=== PATIENT | male | born 1955 | race Caucasian/White ===

== ENCOUNTER 2016-08-07 21:45 | Inpatient (IN) | payer OTHER ==
[~2016-08-07] VITALS: Ht 175.3 cm; Wt 139.7 kg
[~2016-08-07 21:45] MED LIST: ARIP5TAB4 PO; ASPI-991 PO; DOXY100C2 PO; FERR1TAB44 PO; FURO20TA4 PO; LISI2.5T2 PO; MULT1CAP34 PO; PANT40TA2 PO; ROSU5TAB PO; Silver Sulfadiazine TP
[2016-08-07] MEDS ORDERED: METOPROLOL TARTRATE INJ 5 MG/5 ML AMPUL ONE (22:27)
[2016-08-07] MEDS ORDERED: HYDROCODONE/APAP 5/325MG 1 EACH TABLET ONE ×2 (22:27→22:44)
[2016-08-07] MEDS ORDERED: NITROGLYCERIN 0.4 MG/TAB BOTTLE ONE (22:28)
[2016-08-07] MEDS ORDERED: NITROGLYCERIN PACKET 1 GM PACKET ONE (22:28)
[2016-08-07] MEDS ORDERED: NITROGLYCERIN 0.4 MG/TAB BOTTLE SL ONE (22:30)
[2016-08-07] MEDS ORDERED: NITROGLYCERIN PACKET 1 GM PACKET TD ONE (22:30)
[2016-08-07] MEDS ORDERED: METOPROLOL TARTRATE INJ 5 MG/5 ML AMPUL IVP ONE (22:30)
[2016-08-07] MEDS ORDERED: HYDROCODONE/APAP 5/325MG 1 EACH TABLET PO ONE (22:30)
[2016-08-07 23:09] LABS: BASOPHILS # (AUTO) 0.1 /CMM (0.0-0.2); BASOPHILS % (AUTO) 0.7 % (0.0-2.0); DIFF TOTAL % 100 %; EOSINOPHILS # (AUTO) 0.2 /CMM (0.0-0.7); EOSINOPHILS % (AUTO) 2.5 % (0.0-6.0); HEMATOCRIT 34 % (39-51); LYMPHOCYTES # (AUTO) 2.4 /CMM (0.8-4.8); MEAN CORPUSCULAR HEMOGLOBIN 28 PG (26.0-33.0); MEAN CORPUSCULAR HGB CONC 33 g/dl (31.0-36.0); MEAN CORPUSCULAR VOLUME 85 fL (80-96); MONOCYTES # (AUTO) 0.8 /CMM (0.1-1.30); MONOCYTES % (AUTO) 9.2 % (2.0-12.0); NEUTROPHILS # (AUTO) 5.1 /CMM (1.8-8.9); NEUTROPHILS % (AUTO) 59.6 % (43.0-81.0); PLATELET COUNT (AUTO) 363 /CMM (150-450); RED BLOOD CELL COUNT(AUTO) 3.97 MIL/uL (4.5-6.0); WHITE BLOOD COUNT (AUTO) 8.6 K/uL (4.3-11.0)
[2016-08-07 23:10] LABS: CALCIUM, SERUM 8.7 mg/dL (8.5-10.1); POTASSIUM 3.4 mmol/L (3.5-5.1)
[2016-08-07 23:15] LABS: TROPONIN I 0.02 ng/mL (0.00-0.056)
[2016-08-07 23:22] LABS: ALBUMIN 3.1 g/dL (3.4-5.0); BILIRUBIN,TOTAL 0.2 mg/dL (0.2-1.0); TOTAL PROTEIN, SERUM 6.9 g/dL (6.4-8.2)
[2016-08-07 23:23] LABS: INDIRECT BILIRUBIN 0.2 mg/dL (0.0-1.1)
[2016-08-07 23:45] LABS: INR 0.97 (0.87-1.13); PROTHROMBIN TIME 10.5 SECS (9.5-12.7)
[2016-08-08] MEDS ORDERED: VANCOMYCIN 1 GM in IV D5W 250 ML IV ONE ×2
[2016-08-08] MEDS ORDERED: IV D5W 250 ML IV ONE (00:40)
[2016-08-08] MEDS ORDERED: IV SET PRIMARY PUMP SET 1 EA INFUS.SET MC ONE ×2 (00:40→05:10)
[2016-08-08] MEDS ORDERED: VANCOMYCIN 1 GM VIAL ONE (00:40)
[2016-08-08] MEDS ORDERED: Z GUARD REMEDY 2 OZ OINT TP PRN (01:00)
[2016-08-08] MEDS ORDERED: MAG HYDROX/AL HYDROX/SIMETH 30 ML UDC PO PRN (01:00)
[2016-08-08] MEDS ORDERED: ONDANSETRON HCL/PF 4 MG/2 ML VIAL IVP PRN (01:00)
[2016-08-08] MEDS ORDERED: MAGNESIUM HYDROXIDE 30 ML UDC PO PRN (01:00)
[2016-08-08] MEDS ORDERED: Medication Not On Formulary EA (Doxycycline Hyclate 100 MG) PO SCH (01:00)
[2016-08-08] MEDS ORDERED: ACETAMINOPHEN 325 MG TABLET PO PRN (01:00)
[2016-08-08 01:30] VITALS: BP 150/103
[2016-08-08 02:00] VITALS: BP 148/83
[2016-08-08] MEDS ORDERED: ISOS10TA8 PO (02:08)
[2016-08-08] MEDS ORDERED: METO25TA6 PO (02:08)
[2016-08-08] MEDS ORDERED: PIPERACILLIN /TAZOBACTAM 3.375 G VIAL IV ONE (03:28)
[2016-08-08] MEDS ORDERED: IV D5W 50 ML IV ONE (03:29)
[2016-08-08] MEDS ORDERED: SECONDARY IV SET 1 EA INFUS.SET MC ONE ×3 (04:21→10:05)
[2016-08-08] MEDS ORDERED: HYDROCODONE/APAP 5/325MG 1 EACH TABLET ONE (04:29)
[2016-08-08] MEDS: HYDROCODONE/APAP 5/325MG 1 EACH TABLET PO PRN ×4 (04:33→21:13)
[2016-08-08] MEDS: PIPERACILLIN /TAZOBACTAM 3.375 G in IV D5W 50 ML IV SCH ×3 (05:22→18:34)
[2016-08-08 08:00] VITALS: BP 156/96
[2016-08-08] MEDS: FERROUS SULFATE (325 MG) 325 MG/TAB TABLET PO SCH (08:32)
[2016-08-08] MEDS: ASPIRIN EC 81 MG TABLET.DR PO SCH (08:32)
[2016-08-08] MEDS: POTASSIUM CHLORIDE 20 MEQ TAB.PRT.SR PO SCH ×3 (08:32→10:07)
[2016-08-08] MEDS: FUROSEMIDE 20 MG TABLET PO SCH (08:32)
[2016-08-08] MEDS: PANTOPRAZOLE 40 MG TABLET.DR PO SCH (08:32)
[2016-08-08] MEDS ORDERED: FEE PK DOSING 1 MIN EA MC ONE (08:42)
[2016-08-08] MEDS ORDERED: LISINOPRIL PO SCH (09:00)
[2016-08-08] MEDS ORDERED: SILVER SULFADIAZINE TP SCH (09:00)
[2016-08-08] MEDS: MULTIVITAMINS,THERAPEUTIC 1 UDTAB TABLET PO SCH (09:29)
[2016-08-08] MEDS: VANCOMYCIN 1.25 GM in IV D5W 500 ML IV SCH ×2 (10:07→22:59)
[2016-08-08 13:51] LABS: IRON, SERUM 136 ug/dl (50-175); PERCENT SATURATION 38 % (14-33); TOTAL IRON BINDING CAPACITY 362 ug/dl (250-450)
[2016-08-08 16:00] VITALS: BP 141/88
[2016-08-08 20:00] VITALS: BP 152/83
[2016-08-08] MEDS: ARIPIPRAZOLE 5 MG TABLET PO SCH (21:13)
[2016-08-08] MEDS ORDERED: ROSUVASTATIN CALCIUM PO SCH (22:00)
[2016-08-08] MEDS ORDERED: ZOLPIDEM TARTRATE 5 MG TABLET PO PRN (22:00)
[2016-08-09] MEDS: PIPERACILLIN /TAZOBACTAM 3.375 G in IV D5W 50 ML IV SCH ×4 (00:58→17:29)
[2016-08-09] MEDS: HYDROCODONE/APAP 5/325MG 1 EACH TABLET PO PRN ×6 (01:13→22:44)
[2016-08-09] MEDS ORDERED: NITROGLYCERIN PACKET 1 GM PACKET ONE (01:35)
[2016-08-09] MEDS ORDERED: NITROGLYCERIN PATCH 0.2 MG/HR PATCH.TD24 TD ONE (01:48)
[2016-08-09] MEDS ORDERED: NITROGLYCERIN 0.3 MG/HR TD SCH (02:00)
[2016-08-09] MEDS: FUROSEMIDE 20 MG TABLET PO SCH (06:23)
[2016-08-09 07:05] LABS: CALCIUM, SERUM 8.8 mg/dL (8.5-10.1); PHOSPHORUS 3.5 mg/dL (2.5-4.9); POTASSIUM 4.1 mmol/L (3.5-5.1)
[2016-08-09 07:19] LABS: BASOPHILS # (AUTO) 0.1 /CMM (0.0-0.2); BASOPHILS % (AUTO) 0.6 % (0.0-2.0); DIFF TOTAL % 100 %; EOSINOPHILS # (AUTO) 0.3 /CMM (0.0-0.7); EOSINOPHILS % (AUTO) 3.7 % (0.0-6.0); HEMATOCRIT 38 % (39-51); HEMOGLOBIN 12.4 g/dL (13.5-17.5); LYMPHOCYTES # (AUTO) 0.9 /CMM (0.8-4.8); LYMPHOCYTES % (AUTO) 10.1 % (20.0-44.0); MEAN CORPUSCULAR HEMOGLOBIN 28 PG (26.0-33.0); MEAN CORPUSCULAR HGB CONC 33 g/dl (31.0-36.0); MEAN CORPUSCULAR VOLUME 85 fL (80-96); MONOCYTES # (AUTO) 0.6 /CMM (0.1-1.30); MONOCYTES % (AUTO) 6.9 % (2.0-12.0); NEUTROPHILS % (AUTO) 78.7 % (43.0-81.0); PLATELET COUNT (AUTO) 274 /CMM (150-450); WHITE BLOOD COUNT (AUTO) 8.9 K/uL (4.3-11.0)
[2016-08-09 08:00] VITALS: BP 149/91
[2016-08-09] MEDS: FERROUS SULFATE (325 MG) 325 MG/TAB TABLET PO SCH (09:05)
[2016-08-09] MEDS: MULTIVITAMINS,THERAPEUTIC 1 UDTAB TABLET PO SCH (09:05)
[2016-08-09] MEDS: PANTOPRAZOLE 40 MG TABLET.DR PO SCH (09:05)
[2016-08-09] MEDS: ASPIRIN EC 81 MG TABLET.DR PO SCH (09:05)
[2016-08-09] MEDS: VANCOMYCIN 1.25 GM in IV D5W 500 ML IV SCH ×2 (10:43→22:27)
[2016-08-09 12:16] LABS: EOSINOPHILS % (MANUAL) 1 % (0-4); LYMPHOCYTES % (MANUAL) 18 % (16-48); PLATELET ESTIMATE ADEQUATE
[2016-08-09 12:17] LABS: ANISOCYTOSIS 1+; HYPOCHROMASIA 1+
[2016-08-09] MEDS: SILVER SULFADIAZINE CREAM 400 GM JAR TP SCH (12:36)
[2016-08-09 16:00] VITALS: BP 156/82
[2016-08-09 20:07] VITALS: BP 155/89
[2016-08-09 22:00] VITALS: BP 155/89
[2016-08-09] MEDS: ARIPIPRAZOLE 5 MG TABLET PO SCH (22:26)
[2016-08-10] MEDS: HYDROCODONE/APAP 5/325MG 1 EACH TABLET PO PRN ×2 (05:58→15:59)
[2016-08-10] MEDS: PIPERACILLIN /TAZOBACTAM 3.375 G in IV D5W 50 ML IV SCH ×4 (05:59→13:17)
[2016-08-10 07:07] LABS: CALCIUM, SERUM 8.5 mg/dL (8.5-10.1); CREATININE 1.1 mg/dL (0.6-1.3); POTASSIUM 3.7 mmol/L (3.5-5.1)
[2016-08-10 08:00] VITALS: BP 157/90
[2016-08-10] MEDS: FERROUS SULFATE (325 MG) 325 MG/TAB TABLET PO SCH (08:49)
[2016-08-10] MEDS: FUROSEMIDE 20 MG TABLET PO SCH (08:49)
[2016-08-10] MEDS: ASPIRIN EC 81 MG TABLET.DR PO SCH (08:49)
[2016-08-10] MEDS: MULTIVITAMINS,THERAPEUTIC 1 UDTAB TABLET PO SCH (08:49)
[2016-08-10] MEDS: PANTOPRAZOLE 40 MG TABLET.DR PO SCH (08:49)
[2016-08-10] MEDS ORDERED: NITROGLYCERIN PATCH 0.2 MG/HR PATCH.TD24 TD SCH (09:00)
[2016-08-10] MEDS ORDERED: NITROGLYCERIN 0.1 MG/HR PATCH.TD24 TD SCH (09:00)
[2016-08-10] MEDS: SILVER SULFADIAZINE CREAM 400 GM JAR TP SCH (10:02)
[2016-08-10] MEDS: VANCOMYCIN 1.25 GM in IV D5W 500 ML IV SCH (10:57)
[2016-08-10] MEDS ORDERED: IV NS 0.9% 250 ML IV ONE (11:07)
[2016-08-10] MEDS ORDERED: METOPROLOL TARTRATE 25 MG TABLET PO SCH (11:30)
[2016-08-10] MEDS ORDERED: LEVO500T15 PO (15:50)
[2016-08-10 16:00] VITALS: BP 158/89
[2016-08-10] MEDS ORDERED: LEVOFLOXACIN (500MG) 500 MG TABLET PO SCH (16:00)
[2016-08-10] MEDS ORDERED: VANCOMYCIN 1 GM in IV D5W 250 ML IV SCH (22:00)
== END 2016-08-10 19:45 | disposition home or self-care (01) | DRG 383 ==
LOC: ER 21:50 → TELE 08-08 00:14 → MED 08-08 22:05
PROVIDERS: ADMIT Family Medicine; ATTEND Family Medicine
DX: L03.115 Cellulitis of right lower limb (principal); E43 Unspecified severe protein-calorie malnutrition; D68.59 Other primary thrombophilia; Z68.42 Body mass index [BMI] 45.0-49.9, adult; I50.9 Heart failure, unspecified; I11.0 Hypertensive heart disease with heart failure; E66.01 Morbid (severe) obesity due to excess calories; I25.10 Atherosclerotic heart disease of native coronary artery without angina pectoris; I83.019 Varicose veins of right lower extremity with ulcer of unspecified site; K21.9 Gastro-esophageal reflux disease without esophagitis; E78.5 Hyperlipidemia, unspecified; F31.9 Bipolar disorder, unspecified; I25.2 Old myocardial infarction; N40.0 Benign prostatic hyperplasia without lower urinary tract symptoms; E87.6 Hypokalemia; Z59.0 Homelessness; Z85.72 Personal history of non-Hodgkin lymphomas; I89.0 Lymphedema, not elsewhere classified
CPT/HCPCS: 36415; 71010-TC; 73590-TC; 80048-TC; 80061-TC; 80076-TC; 80202-TC; 83540-TC; 83735-TC; 83880; 84100-TC; 84484-TC; 85025-TC; 85378-TC; 85730-TC; 87040-TC; 87070-TC; 87081-TC; 87186-TC; 94799-TC; A4606; A6253; A6403; J2543; J3370; J3490; J7050; J7060; Z7610

== ENCOUNTER 2017-01-10 21:27 | Inpatient (IN) | payer OTHER ==
[~2017-01-10] VITALS: Ht 175.3 cm; Wt 130.2 kg
[~2017-01-10 21:27] MED LIST changes: -DOXY100C2 PO; +ISOS10TA8 PO; +LEVO500T15 PO; +METO25TA6 PO
--- NOTE | 2017-01-10 21:40 | NUR ---
PT BIB SELF C/O DIZZINESS AND CP, SEVERE AND SHARP IN CHARACTER. "I THOUGHT I WAS HAVING A HEART ATTACK". RESP EVEN UNLABORED. SKIN WARM DIAPHORETIC. AMBULATORY WITH STEADY GAIT, HOWEVER PT REPORTS HE HAS HAD DIZZINESS WHICH AFFECTED HIS WALKING ABILITY EARLIER. "LUGGING THIS SUITCASE IS HEAVY" HE STATES; NOTED WITH A LARGE WHEELED SUITCASE ON BELONGINGS AT BEDSIDE. SAPPHIRE LOWER LEGS ARE WRAPPED AND WEEPING. PT REPORTS 1 DAY LEFT OF 10 DAY COURSE OF LEVAQUIN. IN ER BED 12 ON MONITOR.
[2017-01-10] MEDS ORDERED: IV NS 0.9% 1,000 ML BAG IV ONE ×3 (22:00→23:30)
[2017-01-10] MEDS ORDERED: IV NS 0.9% 2,000 ML ONE (22:11)
[2017-01-10] MEDS ORDERED: IV SET PRIMARY 1 EA INFUS.SET MC ONE ×3 (22:11→23:18)
[2017-01-10 22:17] LABS: BASOPHILS % (AUTO) 0.3 % (0.0-2.0); EOSINOPHILS # (AUTO) 0.1 /CMM (0.0-0.7); EOSINOPHILS % (AUTO) 1.5 % (0.0-6.0); HEMATOCRIT 32 % (39-51); HEMOGLOBIN 10.7 g/dL (13.5-17.5); LYMPHOCYTES # (AUTO) 1.5 /CMM (0.8-4.8); LYMPHOCYTES % (AUTO) 16.7 % (20.0-44.0); MEAN CORPUSCULAR HEMOGLOBIN 30 PG (26.0-33.0); MEAN CORPUSCULAR HGB CONC 34 g/dl (31.0-36.0); MEAN CORPUSCULAR VOLUME 91 fL (80-96); MONOCYTES # (AUTO) 0.7 /CMM (0.1-1.30); MONOCYTES % (AUTO) 7.9 % (2.0-12.0); NEUTROPHILS # (AUTO) 6.7 /CMM (1.8-8.9); NEUTROPHILS % (AUTO) 73.6 % (43.0-81.0); PLATELET COUNT (AUTO) 388 /CMM (150-450); RDW COEFFICIENT OF VARIATION 14.6 (11.5-15.0); RED BLOOD CELL COUNT(AUTO) 3.52 MIL/uL (4.5-6.0); WHITE BLOOD COUNT (AUTO) 9.1 K/uL (4.3-11.0)
--- NOTE | 2017-01-10 22:25 | NUR ---
2 LARGE BORE IVS ESTABLISHED
[2017-01-10 22:26] LABS: CALCIUM, SERUM 8.5 mg/dL (8.5-10.1); CARBON DIOXIDE 25 mmol/L (21-32); CHLORIDE 103 mmol/L (98-107); CREATININE 2.7 mg/dL (0.6-1.3); GLUCOSE 107 mg/dL (74-106); POTASSIUM 5.2 mmol/L (3.5-5.1); SODIUM SERUM 136 mmol/L (136-145); UREA NITROGEN, BLOOD 52 mg/dL (7-18)
[2017-01-10 22:32] LABS: ALANINE AMINOTRANSFERASE 26 U/L (12-78); ALBUMIN 2.9 g/dL (3.4-5.0); ALKALINE PHOSPHATASE 84 U/L (46-116); ASPARTATE AMINOTRANSFERASE 17 U/L (15-37); BILIRUBIN,DIRECT 0.1 mg/dL (0.0-0.2); BILIRUBIN,TOTAL 0.2 mg/dL (0.2-1.0)
[2017-01-10 22:33] LABS: TROPONIN I < 0.017 ng/mL (0.00-0.056)
[2017-01-10 22:34] LABS: PROTHROMBIN TIME 10.7 SECS (9.5-12.7)
--- NOTE | 2017-01-10 22:46 | NUR ---
PT ABLE TO PROVIDE URINE SAMPLE BY URINAL, STANDING AT BEDSIDE.
--- NOTE | 2017-01-10 22:52 | NUR ---
PT REPORTS THAT HE TOOK AN EXTRA DOSE OF HIS DAILY MEDICATIONS TONIGHT "WHEN I THOUGHT I WAS HAVING A HEART ATTACK" INCLUDING LISINOPRIL "EITHER 20 OR 40 MG PILL", METOPROLOL 50MG, ISOSORBIDE 40MG. HE ALSO TOOK 10 PILLS OF ASPIRIN 81MG. Addendum: 01/10/17 at 9407 by HFOX PT REPORTS HE TOOK THESE MEDS AT 1600
[2017-01-10 23:04] LABS: APPEARANCE,URINE CLEAR (CLEAR); BILIRUBIN,URINE NEGATIVE (NEGATIVE); BLOOD, URINE NEGATIVE Ery/uL (NEGATIVE); COLOR,URINE YELLOW (YELLOW); KETONES,URINE NEGATIVE (NEGATIVE); LEUKOCYTE ESTERASE ,URINE NEGATIVE (NEGATIVE); NITRITE, URINE NEGATIVE (NEGATIVE); PROTEIN,URINE TRACE mg/dl (NEGATIVE); UGLUCOSE NEGATIVE (NEGATIVE); UROBILINOGEN,URINE 0.2 EU/dL (0.2)
--- NOTE | 2017-01-10 23:10 | NUR ---
IV FLUIDS PLACED IN PRESSURE BAG FOR RAPID FLUID RESUSCITATION
--- NOTE | 2017-01-10 23:15 | NUR ---
PT DENIES PAIN OR DIZZINESS AT THIS TIME; STATES THEY ARE NOT PRESENT AT REST AND WHILE LYING. ALL NEEDS ATTENDED TO.
[2017-01-10 23:17] LABS: BACTERIA,URINE None seen /HPF (None Seen); MUCUS,URINE Rare /LPF (None Seen); RBC,URINE 0-2 /HPF (0-2); SQUAMOUS EPITHELIAL CELL,UR Rare /HPF (None Seen); WBC,URINE 0-2 /HPF (0-3)
[2017-01-10] MEDS ORDERED: IV NS 0.9% 1,000 ML ONE ×2 (23:17→23:18)
[2017-01-10 23:22] LABS: SALICYLATE 1.5 mg/dL (2.8-20.0)
--- NOTE | 2017-01-10 23:52 | NUR ---
REPORT GIVEN TO VENKAT, RAW SAMPLER, FOR CANDI. 3RD LITER IVF COMPLTED, 4TH RUNNING BY PRESSURE BAG. PT REPORTS HE REMAINS PAIN FREE AND NOT DIZZY WHILE HE IS LYING DOWN. DRINKING PO FLUIDS.
[2017-01-11] VITALS (9 sets, daily range): BP systolic 116–137; BP diastolic 35–70
[2017-01-11] MEDS ORDERED: IV SET PRIMARY 1 EA INFUS.SET MC ONE (00:14)
[2017-01-11] MEDS ORDERED: IV NS 0.9% 1,000 ML ONE (00:14)
[2017-01-11] MEDS ORDERED: IV NS 0.9% 1,000 ML BAG IV ONE (00:30)
--- NOTE | 2017-01-11 00:33 | NUR ---
MEDICATED ORDERED. DENIES ANY NEW OR WORSENING SX'S. RESP EVEN AND UNLABORED.
[2017-01-11] MEDS ORDERED: MAGNESIUM HYDROXIDE 30 ML UDC PO PRN (01:00)
[2017-01-11] MEDS ORDERED: Z GUARD REMEDY 2 OZ OINT TP PRN (01:00)
[2017-01-11] MEDS ORDERED: ACETAMINOPHEN 325 MG TABLET PO PRN (01:00)
[2017-01-11] MEDS ORDERED: ZOLPIDEM TARTRATE 5 MG TABLET PO PRN (01:00)
[2017-01-11] MEDS ORDERED: MAG HYDROX/AL HYDROX/SIMETH 30 ML UDC PO PRN (01:00)
[2017-01-11] MEDS ORDERED: LEVOFLOXACIN (500MG) 500 MG TABLET PO SCH (01:00)
[2017-01-11] MEDS ORDERED: ONDANSETRON HCL/PF 4 MG/2 ML VIAL IVP PRN (01:00)
--- NOTE | 2017-01-11 01:19 | NUR ---
STILL AWAITING ICU BED; PT INFORMED. NO S/S OD ACUTE DISTRESS NOTED AT THIS TIME. RESP EVEN AND UNLABORED. STILL MONITORED CLOSELY.
--- NOTE | 2017-01-11 02:11 | NUR ---
USING RESTROOM AT THIS TIME VIA URINAL. NAD NOTED.
--- NOTE | 2017-01-11 02:37 | NUR ---
STILL USING URINAL. INFORMED TO LET NURSE KNOW WHEN DONE.
--- NOTE | 2017-01-11 03:15 | NUR ---
REPORT GIVEN TO HEIDI/RN ANGI.
--- NOTE | 2017-01-11 03:20 | NUR ---
RN NOTES RECEIVED REPORT FROM ER NURSE OBIE
--- NOTE | 2017-01-11 03:21 | NUR ---
SPOKE TO DR. PEREA AND STATES "PT CAN GO TO ANGI FLOOR"; DR. RENE AND NURSING SUP INFORMED.
[2017-01-11] MEDS ORDERED: IV SET PRIMARY PUMP SET 1 EA INFUS.SET MC ONE ×2 (03:22→14:13)
--- NOTE | 2017-01-11 03:40 | NUR ---
ANGI RN INITIAL NOTES RECEIVED PATIENT VIA SARINA Miranda/MIRELA, ABLE TO MAKE NEEDS KNOWN. STATES HES FEELING BETTER. DENIES SOB. DENIES CHEST PAIN. PATIENT IS HOMELESS. SKIN WARM AND DRY TO TOUCH. NOTED WITH BLE WOUNDS, PER PATIENT HE HAS HAD THEM FOR A WHILE AND HAS BEEN PROVIDING WOUND CARE HIMSELF. RESPIRATIONS EVEN AND UNLABORED ON ROOM AIR. ON TELE MONITOR SINUS RHYTHM. PER PATIENT HE USED TO SMOKE 31 YEARS AGO, AND DRINK 30YEARS AGO. DENIES USING ELICIT DRUGS, BESIDES NORCO FOR PAIN FOR HIS LEGS. PATIENT C/O PAIN AT BOTH LEFT AND RIGHT FOREARM 18G IV LINES WHEN BEING FLUSHED. CHARGE NURSE WILL ATTEMPT TO PLACE NEW LINE.ORIENTED PATIENT TO ROOM, AND CALL LIGHT SYSTEM, PATIENT VERBALIZED UNDERSTANDING. SIDE RAILS UP AND LOCKED. BED KEPT AT LOWEST POSITION. CALL LIGHT KEPT WITHIN EASY REACH. WILL CONTINUE TO MONITOR.
--- NOTE | 2017-01-11 05:22 | NUR ---
PER ANDONIAN CHANGE ADMIT TO TELE STATUS TO ANGI. NOTED AND CARRIED OUT.
[2017-01-11] MEDS ORDERED: LEVOFLOXACIN (500MG) 500 MG TABLET ONE (06:28)
[2017-01-11] MEDS: IV NS 0.9% 1,000 ML IV SCH ×2 (06:44→08:29)
[2017-01-11] MEDS ORDERED: GABA600T2 PO (07:13)
[2017-01-11] MEDS ORDERED: HYDR-548 PO (07:13)
--- NOTE | 2017-01-11 07:30 | NUR ---
RN NOTES RECEIVED PT SITTING IN BED, AWAKE ALERT ORIENTEDX4 ABLE TO COMMUNICATE NEEDS, ON RA TOLERATING WELL. NSR ON TELE MONITOR. PT ROOM FULL OF BOOKS AND HIS STUFF. DENIES PAIN AT THIS TIME. NOTED WITH DRESSING ON BLE. IV SITE ON R FA, PER PATIENT THERE IS DISCOMFORT WHEN FLUSHING, IV INSERTION ATTEMPTED FAILED, NOTIFIED YOGA TEACHER FOR MIDLINE INSERTION. PLAN OF CARE DISCUSSED, SAFETY MAINTAINED, NEEDS ATTENDED. CALL LIGHT WITHIN REACH.
--- NOTE | 2017-01-11 07:32 | NUR ---
ANGI RN CLOSING NOTES NO C/O PAIN OR DISCOMFORT. NO RESPIRATORY DISTRESS NOTED, ON ROOM AIR WITH SPO2 98%. SINUS RHYTHM ON TELE MONITOR. SKIN WARM AND DRY TO TOUCH. PATIENT ABLE TO AMBULATE WITH MINIMAL ASSISTANCE. DRESSING ON LEGS CHANGED UPON ADMISSION, WITH PENDING CONSULTS. SIDE RAILS UP AND LOCKED. BED KEPT AT LOWEST POSITION. CALL LIGHT KEPT WITHIN EASY REACH. CONTINUITY OF CARE ENDORSED TO AM NURSE.
[2017-01-11] MEDS: FERROUS SULFATE (325 MG) 325 MG/TAB TABLET PO SCH (08:14)
[2017-01-11] MEDS: PANTOPRAZOLE 40 MG TABLET.DR PO SCH (08:15)
[2017-01-11] MEDS: ASPIRIN EC 81 MG TABLET.DR PO SCH (08:15)
[2017-01-11] MEDS: MULTIVITAMINS,THERAPEUTIC 1 UDTAB TABLET PO SCH (08:23)
[2017-01-11] MEDS ORDERED: SILVER SULFADIAZINE CREAM 25 GM TUBE TP SCH (09:00)
[2017-01-11] MEDS ORDERED: ATORVASTATIN 10 MG TABLET PO SCH (09:00)
[2017-01-11 09:26] LABS: IRON, SERUM 66 ug/dl (50-175); TOTAL IRON BINDING CAPACITY 320 ug/dl (250-450)
[2017-01-11 09:41] LABS: FERRITIN 100 ng/mL (8-388)
[2017-01-11] MEDS: HYDROCODONE/APAP 5/325MG 1 EACH TABLET PO PRN ×2 (10:48→21:16)
--- NOTE | 2017-01-11 10:54 | NUR ---
Gemologist consult requested by ANGIJose La for homelessness. Pt. was admitted to [facility] for Hypotension. TAY met with patient bedside. Pt. is A&O x4. TAY is familiar with pt. from previous admissions. Pt. was last admitted to [facility] in July 2016. Pt. had all his belongings bedside. Pt. was cooperative and friendly with SW during the assessment. Pt. continues to live on the streets and sleeps on the streets in [place]. Pt. denies suicidal/homicidal ideations, hallucinations, and substance abuse. Pt. denies history of psychiatric hospitalizations. Pt. states he has no family. Pt. receives SSI Benefits (about $973/monthly). Pt. denies using alcohol and drugs. Pt. is a non-smoker. TAY offered halfway placement to pt., however, pt. declined. Once medically cleared, pt. wants to be discharged via taxi to [address] [place] [address]. TAY to provide homeless resources to pt. prior to discharge.
[2017-01-11] MEDS ORDERED: BUMETANIDE INJ 4 MG in IV NS 0.9% 24 ML IV ONE (12:00)
[2017-01-11] MEDS ORDERED: CLINDAMYCIN IV RTU IN D5W 900 MG/50 ML PIGGYBACK IV SCH (12:00)
[2017-01-11] MEDS: SILVER SULFADIAZINE CREAM 400 GM JAR TP SCH (12:31)
[2017-01-11] MEDS ORDERED: SECONDARY IV SET 1 EA INFUS.SET MC ONE ×2 (14:13→20:27)
[2017-01-11] MEDS: CLINDAMYCIN 600 MG in IV D5W 50 ML IV SCH ×2 (14:49→20:40)
--- NOTE | 2017-01-11 15:13 | NUR ---
RN NOTES PT TRANSFERRED TO 329-1 REPORT GIVEN TO MARKOS BARAJAS FOR CONTINUITY OF CARE
--- NOTE | 2017-01-11 15:30 | NUR ---
MS/ALARM OPERATOR PT. WAS TRANSFERRED FROM ICU A&OX4 IN A WHEELCHAIR. PT. WILL BE ON CONTACT ISOLATION DUE TO HISTORY OF MRSA OF WOUND. PT. WENT TO ROOM 329. PT. HAS BUMEX , AND IV ANTIBIOTICS RUNNING THROUGH RIGHT UPPER ARM MIDLINE. PT. IS AMBULATORY. HAS EDEMA BILATERALLY ON LOWER EXTREMITIES, AND WOUNDS ON BOTH LOWER EXTREMITIES. IV FLUIDS WERE DISCONTINUED DUE TO NO NEW ORDERS TO CONTINUE IV FLUIDS FROM ICU. IN ICU PT. RECEIVED 4 LITERS OF FLUIDS DUE TO HYPOTENSION. PT.'S VITAL SIGNS ARE WITHIN NORMAL LIMITS AT THIS TIME.
--- NOTE | 2017-01-11 19:30 | NUR ---
MS/RN CLOSING NOTES PT. IS IN BED A&OX4. NO SOB, BREATHING ON ROOM AIR UNLABORED AND EVENLY. NO S/S OF ACUTE DISTRESS. PT. HAS PATENT IV ACCESS ON RIGHT UPPER MIDLINE. PT. HAD TOTAL OUTPUT OF 3100 ML OF CLEAR AND YELLOW URINE. BED IS IN LOW POSITION, 2 SIDE RAILS UP, AND INSTRUCTED PT. TO USE CALL LIGHT FOR ASSISTANCE. WILL ENDORSE TO SCHOOL SPEECH LANGUAGE PATHOLOGIST NURSE.
--- NOTE | 2017-01-11 19:30 | NUR ---
RN NOTES; RECEIVED SITTING ON THE BED SIDE CHAIR WHILE USING HIS LAP TOP,A/OX4,LOOKS VERY COMFORTABLE, NO SIGN OF SOB OR RESPIRATORY DISTRESS NOTED,FALL,SAFETY AND ASPIRATION PRECAUTION OBSERVED, ON ISOLATION PRECAUTION FOR HISTORY OF MRSA(WOUND0,IV MIDLINE INTACT ON PATTIE,ON STRICT INPUT AND OUTPUT MEASUREMENT.CALL LIGHT WITHIN REACH.
[2017-01-11] MEDS: ARIPIPRAZOLE 5 MG TABLET PO SCH (21:15)
--- NOTE | 2017-01-11 21:20 | NUR ---
RN NOTES: COMPLAINED OF PAIN 01/28 ON BLE,REQUEST FOR PAIN MEDICATION BP-126/67 NV-90.NORCO PRN GIVEN,KEPT ON COMFORTABLE POSITION,CALL LIGHT WITHIN EASY REACH.
--- NOTE | 2017-01-11 22:30 | NUR ---
RN NOTES; CALLS AND NEEDS ATTENDED,URINATING IN ADEQUATE AMOUNT, KEPT MONITORED FOR INPUT AND OUTPUT,NO COMPLAINS OF DIZZINESS,HEADACHE OR ALC,NO SIGN OF SOB, KEPT RESTED,PATIENT FACIAL REACTION NOT IN PAIN,RELAX AND TRYING TO GET SOME SLEEP.CALL LIGHT WITHIN EASY REACH.
[2017-01-12] MEDS: HYDROCODONE/APAP 5/325MG 1 EACH TABLET PO PRN ×4 (01:31→21:02)
--- NOTE | 2017-01-12 01:37 | NUR ---
RN NOTES: AT 0131 PATIENT COMPLAINED OF PAIN AFTER HE CHANGE HIS SOCKS,OFFERED ASSISTANCE BUT HE PREFER TO DO IT BY HIMSELF,HE CLAIMED HE CHANGE HIS DRESSING BY HIMSELF TOO,PAIN 7/10 ON BLE,NON PHARMACOLOGIC INTERVENTION INEFFECTIVE, REQUEST FOR HIS NORCO; GIVEN.BP-111/69 TX-91.KEEP CALL LIGHT WITHIN EASY REACH.
--- NOTE | 2017-01-12 02:31 | NUR ---
RN NOTES: ABLE TO REST AND SLEEP,KEPT ON COMFORTABLE POSITION, BLE ELEVATED AND OFFLOAD,CALL LIGHT WITHIN EASY REACH.
[2017-01-12] MEDS: CLINDAMYCIN 600 MG in IV D5W 50 ML IV SCH (04:48)
--- NOTE | 2017-01-12 05:35 | NUR ---
RN NOTES: ASLEEP AT SHORT INTERVALS ,AWAKE WHEN ATB/IV WAS GIVEN, HE GET UP.HE SAID HE HAS A NIGHT MARE,REQUEST FOR O2, SPO2=94%, HE CLAIMED HE FEELS COMFORTABLE AFTER O2@2L/MIN WAS STARTED, HE SAID HE WILL GO BACK TO SLEEP.CALL LIGHT PLACE WITHIN EASY REACH.
[2017-01-12] MEDS ORDERED: LEVOFLOXACIN (250MG) 250 MG TABLET PO SCH (06:00)
--- NOTE | 2017-01-12 06:34 | NUR ---
RN NOTES; KEPT COMFORTABLE IN BED, CALL LIGHT WITHIN EASY REACH,BED LOW AND LOCKED,ENDORSED TO MORNING SHIFT FOR CONTINUITY OF CARE.
[2017-01-12 07:06] LABS: BASOPHILS % (AUTO) 0.5 % (0.0-2.0); EOSINOPHILS # (AUTO) 0.2 /CMM (0.0-0.7); HEMATOCRIT 35 % (39-51); HEMOGLOBIN 11.8 g/dL (13.5-17.5); LYMPHOCYTES # (AUTO) 1.3 /CMM (0.8-4.8); MEAN CORPUSCULAR HEMOGLOBIN 30 PG (26.0-33.0); MEAN CORPUSCULAR HGB CONC 34 g/dl (31.0-36.0); MEAN CORPUSCULAR VOLUME 91 fL (80-96); MONOCYTES # (AUTO) 0.8 /CMM (0.1-1.30); MONOCYTES % (AUTO) 10.3 % (2.0-12.0); NEUTROPHILS # (AUTO) 5.3 /CMM (1.8-8.9); NEUTROPHILS % (AUTO) 70.2 % (43.0-81.0); PLATELET COUNT (AUTO) 328 /CMM (150-450); RDW COEFFICIENT OF VARIATION 14.4 (11.5-15.0); RED BLOOD CELL COUNT(AUTO) 3.87 MIL/uL (4.5-6.0); WHITE BLOOD COUNT (AUTO) 7.6 K/uL (4.3-11.0)
[2017-01-12 07:23] LABS: CALCIUM, SERUM 8.9 mg/dL (8.5-10.1); CREATININE 1.5 mg/dL (0.6-1.3); MAGNESIUM 2.2 mg/dL (1.8-2.4); POTASSIUM 4.1 mmol/L (3.5-5.1)
--- NOTE | 2017-01-12 07:38 | NUR ---
MS RN NOTES RECEIVED REPORT WITH PATIENT IN BED. PATIENT IS A/OX4. NO SOB NOTED. NO S/S OF DISTRESS NOTED. IV IS PATENT AND INTACT. BED IS IN LOWEST, LOCKED POSITION. CALL LIGHT IS WITHIN REACH. WILL CONTINUE TO MONITOR THROUGHOUT SHIFT.
[2017-01-12 08:00] VITALS: BP 131/71
[2017-01-12] MEDS: ASPIRIN EC 81 MG TABLET.DR PO SCH (08:12)
[2017-01-12] MEDS: FERROUS SULFATE (325 MG) 325 MG/TAB TABLET PO SCH (08:12)
[2017-01-12] MEDS: MULTIVITAMINS,THERAPEUTIC 1 UDTAB TABLET PO SCH (08:12)
[2017-01-12] MEDS: PANTOPRAZOLE 40 MG TABLET.DR PO SCH (08:12)
[2017-01-12] MEDS: FLUCONAZOLE (100 MG) 100 MG TABLET PO SCH (10:11)
[2017-01-12] MEDS: SILVER SULFADIAZINE CREAM 400 GM JAR TP SCH (10:12)
[2017-01-12] MEDS ORDERED: VANCOMYCIN 1.5 GM in IV D5W 500 ML IV ONE (10:33)
[2017-01-12] MEDS ORDERED: SECONDARY IV SET 1 EA INFUS.SET MC ONE ×2 (10:46→15:47)
[2017-01-12] MEDS: FUROSEMIDE 40 MG TABLET PO SCH (10:54)
[2017-01-12] MEDS ORDERED: IV NS 0.9% 250 ML IV ONE (10:54)
[2017-01-12] MEDS ORDERED: IV SET PRIMARY PUMP SET 1 EA INFUS.SET MC ONE ×2 (10:55→14:09)
[2017-01-12] MEDS ORDERED: FEE PK DOSING 1 MIN EA MC ONE (11:13)
[2017-01-12] MEDS ORDERED: PIPERACILLIN /TAZOBACTAM 3.375 G in IV D5W 50 ML IV SCH (12:00)
[2017-01-12 16:00] VITALS: BP 119/72
--- NOTE | 2017-01-12 16:00 | NUR ---
MS RN NOTES PT HAD STATED THE NORCO WAS NOT STRONG ENOUGH FOR HIS PAIN. MD WAS MADE AWARE. NO NEW ORDERS WERE GIVEN WILL CONTINUE TO MONITOR
[2017-01-12] MEDS: PIPERACILLIN /TAZOBACTAM 3.375 G in IV D5W 50 ML IV SCH ×2 (16:32→21:42)
--- NOTE | 2017-01-12 16:42 | NUR ---
MS RN NOTES PATIENT REFUSING TO LET ME CHANGE HIS DRESSING. STATES THAT I AM "WORKING FOR [employer]." WILL CONTINUE TO MONITOR.
--- NOTE | 2017-01-12 19:14 | NUR ---
MS RN NOTES PATIENT IS A/OX3. HAS SOME PERIODS OF CONFUSION. NO SOB NOTED. NO S/S OF DISTRESS NOTED. MIDLINE PATENT AND INTACT. BED IS IN LOWEST, LOCKED POSITION. CALL LIGHT WITHIN REACH. ALL PT NEEDS HAVE BEEN MET. WILL ENDORSE CARE TO PM SHIFT.
--- NOTE | 2017-01-12 19:15 | NUR ---
RN OPEN NOTES RECEIVED PATIENT AWAKE IN BED. A/O X3. NO SIGNS OF DISTRESS OR DISCOMFORT. BREATHING EVEN AND UNLABORED. STATES PAIN IS 9/10 IN BLE, WILL F/U WITH MD REGARDING STRONGER PAIN MEDICATION. ADVISED PATIENT NORCO IS NOT DUE AT THIS TIME. NON PHARMACEUTICAL MEASURES IMPLEMENTED. HAS PATTIE MIDLINE PATENT AND INTACT, NO SIGNS OF REDNESS OR INFILTRATION. DRESSINGS ON BLE C/D/I. BED IN LOW LOCKED POSITION WITH SIDE RAILS X2. CALL LIGHT WITHIN REACH. WILL CONTINUE TO MONITOR.
[2017-01-12 20:00] VITALS: BP 113/77
--- NOTE | 2017-01-12 21:02 | NUR ---
RN NOTES ADMINISTERED NORCO 5/325 ORDERED FOR PAIN IN BLE. VSS. WILL CONTINUE TO MONITOR.
[2017-01-12] MEDS ORDERED: GABAPENTIN 300 MG CAPSULE ONE (21:27)
[2017-01-12] MEDS: ARIPIPRAZOLE 5 MG TABLET PO SCH (21:41)
[2017-01-12] MEDS: GABAPENTIN 300 MG CAPSULE PO SCH (21:42)
[2017-01-13] MEDS ORDERED: HYDROCODONE/APAP 10/325MG 1 EA TABLET ONE (03:08)
[2017-01-13] MEDS: PIPERACILLIN /TAZOBACTAM 3.375 G in IV D5W 50 ML IV SCH ×4 (03:28→22:12)
[2017-01-13] MEDS: HYDROCODONE/APAP 10/325MG 1 EA TABLET PO PRN ×2 (03:29→15:04)
--- NOTE | 2017-01-13 03:29 | NUR ---
RN NOTES ADMINISTERED NORCO 10/325 ORDERED FOR PAIN 7/10 IN BLE. VSS. WILL CONTINUE TO MONITOR.
[2017-01-13] MEDS ORDERED: IV NS 0.9% 250 ML IV ONE (03:33)
--- NOTE | 2017-01-13 07:06 | NUR ---
RN CLOSING NOTES PATIENT AWAKE IN BED. A/O X3. NO SIGNS OF DISTRESS OR DISCOMFORT. BREATHING EVEN AND UNLABORED. DENIES ANY PAIN AT THIS TIME. HAS PATTIE MIDLINE PATENT AND INTACT, NO SIGNS OF REDNESS OR INFILTRATION. DRESSINGS ON BLE C/D/I. ALL NEEDS MET. NO SIGNIFICANT CHANGES THROUGH THE NIGHT. DRESSING CHANGED ORDERED. BED IN LOW LOCKED POSITION WITH SIDE RAILS X2. CALL LIGHT WITHIN REACH. WILL ENDORSE TO AM SHIFT FOR CANDI.
--- NOTE | 2017-01-13 07:47 | NUR ---
MS RN OPENING NOTE PATIENT IS ALERT AND ORIENTED x3. NO PAIN AT THIS TIME. NO SOB OR DISTRESS NOTED. CALL LIGHT WITHIN REACH. SAFETY MEASURES IMPLEMENTED. PATTIE MIDLINE INTACT AND PATENT NO REDNESS, SWELLING PRESENT, INFORMED CHARGE NURSE. ABLE TO COMMUNICATE NEEDS. BLE CELLULITIS. AWAITING FOR PHYSICIAN CONSULT LATER TODAY. WILL CONTINUE TO MONITOR
[2017-01-13 08:00] VITALS: BP 110/64
[2017-01-13] MEDS: ASPIRIN EC 81 MG TABLET.DR PO SCH (08:22)
[2017-01-13] MEDS: FERROUS SULFATE (325 MG) 325 MG/TAB TABLET PO SCH (08:22)
[2017-01-13] MEDS: FUROSEMIDE 40 MG TABLET PO SCH (08:22)
[2017-01-13] MEDS: PANTOPRAZOLE 40 MG TABLET.DR PO SCH (08:23)
[2017-01-13] MEDS: GABAPENTIN 300 MG CAPSULE PO SCH ×3 (08:23→16:45)
[2017-01-13] MEDS: FLUCONAZOLE (100 MG) 100 MG TABLET PO SCH (08:23)
[2017-01-13] MEDS: MULTIVITAMINS,THERAPEUTIC 1 UDTAB TABLET PO SCH (08:23)
[2017-01-13 08:25] LABS: CALCIUM, SERUM 9.1 mg/dL (8.5-10.1); CREATININE 1.3 mg/dL (0.6-1.3)
[2017-01-13] MEDS: MORPHINE SULFATE INJ 4 MG/ML DISP.SYRIN IV PRN ×2 (09:05→18:12)
[2017-01-13] MEDS: SILVER SULFADIAZINE CREAM 400 GM JAR TP SCH (09:14)
--- NOTE | 2017-01-13 12:34 | NUR ---
MS RN NOTE PATIENT HAS NON-WORKING MIDLINE. ORDER TO REINSERT MIDLINE IN PLACE. MADE PBX SUPERVISOR AWARE. PATIENT ALSO HAS SCHEDULED 1200 VANCO, MADE SELWYN AWARE ABOUT NON-PATENT MIDLINE.
--- NOTE | 2017-01-13 15:19 | NUR ---
MS RN NOTE PATIENT'S MIDLINE WAS CHECKED. NEEDS NEW MIDLINE REINSERTED, NOTIFIED FLAVIA TO CALL MIDLINE NURSE.
[2017-01-13 16:00] VITALS: BP 119/76
[2017-01-13] MEDS: LACTOBACILLUS RHAMNOSUS GG 1 EACH CAP.SPRINK PO SCH (17:00)
[2017-01-13] MEDS ORDERED: SECONDARY IV SET 1 EA INFUS.SET MC ONE (18:52)
[2017-01-13] MEDS: VANCOMYCIN 1 GM in IV D5W 250ml IV SCH (19:01)
--- NOTE | 2017-01-13 19:02 | NUR ---
MS RN CLOSING NOTE PATIENT IS ALERT AND ORIENTED x4. NO PAIN AT THIS TIME. NO SOB OR DISTRESS NOTED. CALL LIGHT WITHIN REACH AT ALL TIMES. SAFETY MEASURES IMPLEMENTED. REFUSED TO HAVE WOUND TREATMENT DONE. NEW MIDLINE INSERTED IN LEFT UPPER ARM, INTACT AND PATENT, ABLE TO COMMUNICATE NEEDS. WILL ENDORSE TO DOPE POURER NURSE FOR CANDI
--- NOTE | 2017-01-13 19:10 | NUR ---
RN OPEN NOTES RECEIVED PATIENT AWAKE IN BED. A/O X3. NO SIGNS OF DISTRESS OR DISCOMFORT. BREATHING EVEN AND UNLABORED. DENIES ANY PAIN AT THIS TIME. HAS DORIS MIDLINE PATENT AND INTACT, NO SIGNS OF REDNESS OR INFILTRATION. DRESSINGS ON BLE C/D/I. BED IN LOW LOCKED POSITION WITH SIDE RAILS X2. CALL LIGHT WITHIN REACH. WILL CONTINUE TO MONITOR.
[2017-01-13 20:00] VITALS: BP 127/74
[2017-01-13] MEDS: ARIPIPRAZOLE 5 MG TABLET PO SCH (22:13)
[2017-01-14] MEDS: VANCOMYCIN 1 GM in IV D5W 250ml IV SCH ×2 (00:39→12:19)
[2017-01-14] MEDS: MORPHINE SULFATE INJ 4 MG/ML DISP.SYRIN IV PRN ×4 (01:25→21:30)
--- NOTE | 2017-01-14 01:25 | NUR ---
RN NOTES ADMINISTERED MORPHINE 4MG ORDERED FOR PAIN 10/10 IN BLE. VSS. WILL CONTINUE TO MONITOR.
[2017-01-14] MEDS ORDERED: IV NS 0.9% 250 ML IV ONE (04:25)
[2017-01-14] MEDS: PIPERACILLIN /TAZOBACTAM 3.375 G in IV D5W 50 ML IV SCH ×4 (04:27→21:29)
[2017-01-14] MEDS: HYDROCODONE/APAP 10/325MG 1 EA TABLET PO PRN ×3 (05:23→18:53)
--- NOTE | 2017-01-14 05:23 | NUR ---
RN NOTES ADMINISTERED NORCO 10/325 ORDERED FOR PAIN 8/10 IN BLE. VSS. WILL CONTINUE TO MONITOR.
--- NOTE | 2017-01-14 06:52 | NUR ---
RN CLOSING NOTES PATIENT AWAKE SITTING IN CHAIR. A/O X3. NO SIGNS OF DISTRESS OR DISCOMFORT. BREATHING EVEN AND UNLABORED. STATES PAIN IS TOLERABLE AT THIS TIME. HAS DORIS MIDLINE PATENT AND INTACT, NO SIGNS OF REDNESS OR INFILTRATION. DRESSINGS ON BLE C/D/I. NO SIGNIFICANT CHANGES THROUGH THE NIGHT. ALL NEEDS MET. BED IN LOW LOCKED POSITION WITH SIDE RAILS X2. CALL LIGHT WITHIN REACH. WILL ENDORSE TO AM SHIFT FOR CANDI. .
[2017-01-14 07:39] LABS: CALCIUM, SERUM 9.3 mg/dL (8.5-10.1); CREATININE 1.3 mg/dL (0.6-1.3); POTASSIUM 4.3 mmol/L (3.5-5.1)
--- NOTE | 2017-01-14 08:00 | NUR ---
m/s imani: notes received pt up in chair awake, a/ox4. ble ext's migel wrap dressing intact. pt very picky in regards to his dressing changes, refused full body assessment. unable to assess ble wound due to refusing assessment when offered. for internet webmaster consult. awaiting for dr. thornton. Addendum: 01/14/17 at 1410 by JANINA STEPHENS LVN pt likes to dictate everything with his care and must follow as instructed. pt gets easily irritated when not followed correctly re: his care.
[2017-01-14] MEDS: FUROSEMIDE 40 MG TABLET PO SCH (08:37)
[2017-01-14] MEDS: MULTIVITAMINS,THERAPEUTIC 1 UDTAB TABLET PO SCH (08:37)
[2017-01-14] MEDS: PANTOPRAZOLE 40 MG TABLET.DR PO SCH (08:37)
[2017-01-14] MEDS: FERROUS SULFATE (325 MG) 325 MG/TAB TABLET PO SCH (08:37)
[2017-01-14] MEDS: GABAPENTIN 300 MG CAPSULE PO SCH ×3 (08:37→16:39)
[2017-01-14] MEDS: FLUCONAZOLE (100 MG) 100 MG TABLET PO SCH (08:37)
[2017-01-14] MEDS: LACTOBACILLUS RHAMNOSUS GG 1 EACH CAP.SPRINK PO SCH ×2 (08:37→16:39)
[2017-01-14] MEDS: ASPIRIN EC 81 MG TABLET.DR PO SCH (08:37)
[2017-01-14 08:47] VITALS: BP 121/83
--- NOTE | 2017-01-14 08:55 | NUR ---
m/s curer foam rubber: notes c/o 04/30 right shoulder pain, medicated with morphine 4mg ivp by rn. instructed to call for assistance. will monitor.
[2017-01-14] MEDS: SILVER SULFADIAZINE CREAM 400 GM JAR TP SCH (09:00)
--- NOTE | 2017-01-14 09:25 | NUR ---
m/s public policy analyst: notes pt sounds asleep at this time. resp. even and unlabored. call light within reach. will monitor.
--- NOTE | 2017-01-14 10:46 | NUR ---
WOUND CARE CONSULT RECEIVED WOUND CARE CONSULT FOR PATIENT. THERE ARE CURRENT TREATMENT ORDERS FOR THE WOUNDS, WOUND CARE WILL DEFER TO PODIATRY DR SAN AT THIS TIME. PATIENT JOB AT 18. WOUND CARE WILL SEE PRN.
--- NOTE | 2017-01-14 11:40 | NUR ---
m/s restaurant front manager: md visit seen and examined by dr. jovel with lab orders. orders acknowledged. called apc and left message to ledy to remind dr. thornton to see pt. ble ext's migel wrap still intact. instructed to call for assistance. will continue to monitor.
--- NOTE | 2017-01-14 11:59 | NUR ---
TAY met with pt. to discuss discharge plan and to confirm if he was going to the following address he had provided on Saturday last week; [address], [place]. [place]. Pt. informed SW, he is not sure because his right arm hurts due to the midline and is having difficulty moving it. Pt. states he is able to move it slightly but will have a difficult time wheeling his suitcase. TAY informed pt. she will follow up with him once the physician has seen him and when he is medically cleared for discharge.
--- NOTE | 2017-01-14 12:43 | NUR ---
m/s religious studies professor: notes dr. bullard called with order to get consent for stage debridement to lower extremities wound and 3 vials of lido/epi. orders read back and carried out and acknowledged.
--- NOTE | 2017-01-14 12:58 | NUR ---
m/s supervisor cigar processing: notes pt c/o 04/30 right shoulder pain and requested for norco and pt wants to have morphine prior to debridement. consent obtained at 1300 and verbalized understanding. instructed to call for assistance. will continue to monitor.
[2017-01-14] MEDS ORDERED: LIDOCAINE 1%-EPI 1:100,000 20 ML VIAL TP ONE (13:00)
--- NOTE | 2017-01-14 13:58 | NUR ---
m/s table attendant: notes pt resting quietly with eyes close. still awaiting for dr. thornton to do debridement. will continue to monitor.
[2017-01-14] MEDS ORDERED: LIDOCAINE 2%-EPI 1:100,000 30 ML VIAL TP ONE (14:00)
[2017-01-14 16:00] VITALS: BP 154/74
--- NOTE | 2017-01-14 16:05 | NUR ---
m/s support service tech: notes pt demanding to get another lasix 40mg po order due to his swelling on his right arm and hand. pt wants nurse to call the doctor and ask to give that order, "i used to take it three times a day as needed so i can take an extra dose." pt also very anxious going home tomorrow, stated, "i can't move my arm, can't raise it up, i can't move my things and put it in my luggage." 1:1 intervention provided prn. cn made aware. dr. jovel notified and addressed concerns. will continue to monitor.
--- NOTE | 2017-01-14 16:25 | NUR ---
m/s tape transferrer: notes dr. jovel called back with no new order of lasix. pt made aware and became extremely angry and demanding to speak and send a doctor in his room right away, pt still manipulative and verbally abusive to staff. cn aware. will continue to monitor.
--- NOTE | 2017-01-14 17:10 | NUR ---
m/s christmas tree grower: notes pt remains manipulative, still wanting to talk to a doctor tom, pt not happy that his needs not being address. cn aware. 1:1 intervention provided prn. encouraged to verbalized feelings, but still with bad temper. will continue to monitor.
--- NOTE | 2017-01-14 18:05 | NUR ---
m/s telecom analyst: notes pt demanded a photocopy of the signed consent. instructed to call for assistance. will continue to monitor.
--- NOTE | 2017-01-14 18:20 | NUR ---
m/s set illustrator: notes pt called and much nicer, pt asked the time for his narcotic and answered all needs. instructed to call for assistance. will continue to monitor.
--- NOTE | 2017-01-14 18:53 | NUR ---
m/s bleaching machine operator: notes c/o 01/28 right shoulder pain, medicated with norco 10/325mg po as ordered. instructed to call for assistance. still awaiting for remarketing rep for debridement. supplies at bedside. needs attended. will continue to monitor.
--- NOTE | 2017-01-14 19:10 | NUR ---
m/s coal gasification technician: notes report given to shila (luke) for continuity of care.
--- NOTE | 2017-01-14 20:00 | NUR ---
MS RN NOTE: PATIENT RESTING IN BED, NO ACUTE DISTRESS NOTED. BREATHING EVEN AND UNLABORED, NO SOB NOTED. MIDLINE TO LEFT UPPER ARM IN PLACE. BLE CELLULITIS WRAPPED WITH DRESSING, CLEAN AND IN PLACE. PATIENT UPSET AND REQUESTING FOR LASIX SINCE HE HAS SWELLING IN RIGHT ARM/HAND. INFORMED THAT DISASSEMBLER MD WILL BE CONTACTED AGAIN REGARDING THIS ISSUE. BED LOCKED AND IN LOWEST POSITION, CALL LIGHT IN REACH. WILL CONTINUE TO MONITOR. Addendum: 01/15/17 at 0642 by BROOK RODRIGUEZ RN PATIENT REFUSE TO HAVE VITAL SIGNS TAKEN, EXPLAINED RISK AND BENEFITS, BUT STILL REFUSED .
[2017-01-14] MEDS: ARIPIPRAZOLE 5 MG TABLET PO SCH (21:29)
[2017-01-14] MEDS ORDERED: HYDROMORPHONE MDV 1 MG in IV D5W 50 ML IV PRN (21:30)
--- NOTE | 2017-01-14 21:30 | NUR ---
MS RN NOTE: PATIENT SEEN BY DR. STOCKTON WITH ORDERS FOR A BANGURA CATHETER. PATIENT TO HAVE DEBRIDEMENT TO WOUNDS TOMORROW. ALSO HAS ORDERS FOR DR. SLOAN TO SEE PATIENT TOMORROW. INFORMED PATIENT THAT MD ORDERED FOR A BANGURA CATHETER, PATIENT REFUSED. EXPLAINED RISK AND BENEFITS, BUT PATIENT CONTINUES TO REFUSE BANGURA CATHETER AND PATIENT ABLE AND WILLING TO USE URINAL. WIRE SPINNER MD CALLED FOR PATIENT REQUEST FOR LASIX, AWAITING CALL BACK. WILL CONTINUE TO MONITOR.
--- NOTE | 2017-01-14 21:40 | NUR ---
MS RN NOTE: PATIENT COMPLAINS OF PAIN TO RIGHT ARM 10/10. MORPHINE 4MG IV GIVEN PER MD ORDER. WILL CONTINUE TO MONITOR.
[2017-01-15] MEDS: VANCOMYCIN 1 GM in IV D5W 250ml IV SCH ×3 (00:45→12:00)
--- NOTE | 2017-01-15 01:00 | NUR ---
MS RN NOTE: PATIENT REFUSE VANCOMYCIN IV ORDERED. PATIENT COMPLAINS THAT HE HAS TOO MUCH FLUID ALREADY AND DOES NOT WANT TO GET MORE FLUIDS. EXPLAINED RISKS AND BENEFITS, BUT PATIENT CONTINUES TO REFUSE MEDICATION. WILL CONTINUE TO MONITOR.
[2017-01-15] MEDS: HYDROCODONE/APAP 10/325MG 1 EA TABLET PO PRN ×4 (02:41→21:30)
--- NOTE | 2017-01-15 02:45 | NUR ---
MS RN NOTE: PATIENT COMPLAINS OF PAIN TO RIGHT ARM 01/28. NORCO 10/325 MG ORAL GIVEN PER MD ORDER. WILL CONTINUE TO MONITOR.
[2017-01-15] MEDS: MORPHINE SULFATE INJ 4 MG/ML DISP.SYRIN IV PRN (04:29)
--- NOTE | 2017-01-15 04:30 | NUR ---
MS RN NOTE: PATIENT COMPLAINS OF PAIN TO RIGHT ARM 10/10. MORPHINE 4MG IV GIVEN PER MD ORDER. WILL CONTINUE TO MONITOR.
[2017-01-15] MEDS: PIPERACILLIN /TAZOBACTAM 3.375 G in IV D5W 50 ML IV SCH ×4 (04:41→21:40)
--- NOTE | 2017-01-15 06:30 | NUR ---
MS RN NOTE: PATIENT RESTING IN BED, NO ACUTE DISTRESS NOTED. BREATHING EVEN AND UNLABORED, NO SOB NOTED. MIDLINE TO LEFT UPPER ARM IN PLACE. BLE CELLULITIS WRAPPED WITH DRESSING, CLEAN AND IN PLACE. BED LOCKED AND IN LOWEST POSITION, CALL LIGHT IN REACH. WILL ENDORSE TO DAY NURSE TO CONTINUE WITH PLAN OF CARE.
--- NOTE | 2017-01-15 07:20 | NUR ---
MS RN OPENING NOTES RECEIVED PT. FROM NIGHTSHIFT NURSE IN STABLE CONDITION. PT. IS A/O X4 AND A BIT IRRITABLE. NO SOB OR SIGNS OF DISTRESS NOTED. BREATHING IS EVEN AND UNLABORED. LEFT UPPER MIDLINE INTACT AND PATENT. BILATERAL LOWER EXTREMITY CELLULITIS NOTED AND WRAPPED WITH DRESSING. DRESSING IS DRY AND CLEAN. BED IN LOW LOCKED POSITION, SIDE RAILS UP X2, CALL LIGHT WITHIN REACH. WILL CONTINUE TO MONITOR.
[2017-01-15 08:00] VITALS: BP 153/88
[2017-01-15] MEDS: FLUCONAZOLE (100 MG) 100 MG TABLET PO SCH (08:57)
[2017-01-15] MEDS: GABAPENTIN 300 MG CAPSULE PO SCH ×3 (08:57→17:00)
[2017-01-15] MEDS: FUROSEMIDE 40 MG TABLET PO SCH (08:57)
[2017-01-15] MEDS: MULTIVITAMINS,THERAPEUTIC 1 UDTAB TABLET PO SCH (08:58)
[2017-01-15] MEDS: FERROUS SULFATE (325 MG) 325 MG/TAB TABLET PO SCH (08:58)
[2017-01-15] MEDS: PANTOPRAZOLE 40 MG TABLET.DR PO SCH (08:58)
[2017-01-15] MEDS: ASPIRIN EC 81 MG TABLET.DR PO SCH (08:58)
[2017-01-15] MEDS: LACTOBACILLUS RHAMNOSUS GG 1 EACH CAP.SPRINK PO SCH ×2 (08:58→17:00)
[2017-01-15] MEDS: SILVER SULFADIAZINE CREAM 400 GM JAR TP SCH (09:00)
--- NOTE | 2017-01-15 09:30 | NUR ---
MS RN NOTES PT. IS REFUSING 0930 DOSE OF ZOSYN. STATES "I AM NOT GETTING ANY FLUIDS IN MY BODY UNTIL I GET FLUID OUT". THE RISKS AND BENEFITS OF THE MEDICATION WERE EXPLAINED TO THE PT, BUT HE REMAINS ADAMANT IN HIS DECISION. CONTINUE TO MONITOR.
[2017-01-15] MEDS: HYDROMORPHONE 1 MG/1 ML DISP.SYRIN IV PRN ×2 (12:08→19:25)
--- NOTE | 2017-01-15 12:46 | NUR ---
MS RN NOTES DR. WADE WAS MADE AWARE THAT THE PT. REFUSED 0900 ZOSYN DUE TO FLUID OVERLOAD AND PAIN. PER DR WADE "ORDER 20MG LASIX IV ONE TIME DOSE". WILL CARRY OUT ORDER AND CONTINUE TO MONITOR PT.
[2017-01-15] MEDS ORDERED: FUROSEMIDE 20 MG/2 ML VIAL IV ONE ×2 (13:00)
[2017-01-15 14:43] LABS: BASOPHILS % (AUTO) 0.3 % (0.0-2.0); EOSINOPHILS # (AUTO) 0.2 /CMM (0.0-0.7); EOSINOPHILS % (AUTO) 1.3 % (0.0-6.0); HEMATOCRIT 38 % (39-51); HEMOGLOBIN 12.4 g/dL (13.5-17.5); LYMPHOCYTES # (AUTO) 1.9 /CMM (0.8-4.8); LYMPHOCYTES % (AUTO) 15.2 % (20.0-44.0); MEAN CORPUSCULAR HEMOGLOBIN 30 PG (26.0-33.0); MEAN CORPUSCULAR HGB CONC 33 g/dl (31.0-36.0); MEAN CORPUSCULAR VOLUME 92 fL (80-96); MONOCYTES # (AUTO) 1.3 /CMM (0.1-1.30); MONOCYTES % (AUTO) 10.4 % (2.0-12.0); NEUTROPHILS # (AUTO) 9.2 /CMM (1.8-8.9); NEUTROPHILS % (AUTO) 72.8 % (43.0-81.0); PLATELET COUNT (AUTO) 481 /CMM (150-450); RDW COEFFICIENT OF VARIATION 14.2 (11.5-15.0); RED BLOOD CELL COUNT(AUTO) 4.11 MIL/uL (4.5-6.0); WHITE BLOOD COUNT (AUTO) 12.6 K/uL (4.3-11.0)
[2017-01-15 14:53] LABS: CALCIUM, SERUM 9.5 mg/dL (8.5-10.1); CREATININE 1.1 mg/dL (0.6-1.3); MAGNESIUM 2.2 mg/dL (1.8-2.4)
--- NOTE | 2017-01-15 15:30 | NUR ---
MS RN NOTES THE RISKS AND BENEFITS WERE AGAIN EXPLAINED TO THE PATIENT ABOUT THE IMPORTANCE OF TAKING HIS ANTIBIOTICS. PT. IS NOW AGREEING TO HAVING THE INFUSION WITH CLOSE MONITORING OF IV SITE FOR INFILTRATION. WILL ADMINISTER 1530 ZOSYN DOSE.
[2017-01-15 16:00] VITALS: BP 154/78
--- NOTE | 2017-01-15 18:49 | NUR ---
MS RN CLOSING NOTES PT. IS IN STABLE CONDITION. ALL NEEDS WERE MET DURING SHIFT AND ORDERS CARRIED OUT ACCORDINGLY. ALL SAFETY MEASURES IN PLACE. BLE DRESSING KEPT CLEAN AND DRY THROUGHOUT SHIFT. NO SIGNS OR INFILTRATION OF MIDLINE. WILL ENDORSE TO NIGHTSHIFT NURSE FOR CANDI
--- NOTE | 2017-01-15 19:15 | NUR ---
MS JOSE INITIAL NOTES RECEIVED REPORT FROM AM NURSE, CHECKED PT HES AWAKE AND ALERT STANDING ON HIS ROOM WITH DRESSING ON HIS BILATERAL LOWER LEGS DRY AND INTACT. ENCOURAGE PT TO UPN ON PILLOWS WHEN HES BACK TO BED . HE ALSO ASKED FOR HIS PAIN MEDS . AM NURSE PROMISE TO GIVE HIS PAIN MEDICATION . PT ALSO AWARE OF POSSIBLE DEBRIDEMENT . EDUCATE HIM ALSO REGARDING HIS MEDICATION AND HE UNDERSTOOD WELL. KEPT HIM WARM AND COMFORTABLE AT ALL TIMES. WILL CONTINUE TO MONITOR. PLACE CALL LIGHT AT REACH.
[2017-01-15 20:00] VITALS: BP_SYST 140; BP_DIAS 83; BP_DIAS 88
[2017-01-15] MEDS: ARIPIPRAZOLE 5 MG TABLET PO SCH (21:29)
--- NOTE | 2017-01-16 | NUR ---
CANE FEEDER/NOTES PT RESTING AT THIS TIME AFTER PAIN MEDS GIVEN. KEPT HIM WARM AND COMFORTABLE AT ALL TIMES. WILL CONTINUE TO MONITOR. PLACE CALL LIGHT AT REACH.
[2017-01-16] MEDS: VANCOMYCIN 1 GM in IV D5W 250ml IV SCH ×2 (00:56→12:24)
[2017-01-16] MEDS: HYDROMORPHONE 1 MG/1 ML DISP.SYRIN IV PRN ×3 (02:07→19:34)
[2017-01-16] MEDS: PIPERACILLIN /TAZOBACTAM 3.375 G in IV D5W 50 ML IV SCH ×4 (04:18→22:37)
[2017-01-16] MEDS: HYDROCODONE/APAP 10/325MG 1 EA TABLET PO PRN ×3 (07:16→23:22)
[2017-01-16 07:26] LABS: BASOPHILS # (AUTO) 0.1 /CMM (0.0-0.2); BASOPHILS % (AUTO) 0.5 % (0.0-2.0); EOSINOPHILS # (AUTO) 0.3 /CMM (0.0-0.7); EOSINOPHILS % (AUTO) 2.2 % (0.0-6.0); HEMATOCRIT 37 % (39-51); HEMOGLOBIN 12.5 g/dL (13.5-17.5); LYMPHOCYTES # (AUTO) 1.5 /CMM (0.8-4.8); LYMPHOCYTES % (AUTO) 12.4 % (20.0-44.0); MEAN CORPUSCULAR HEMOGLOBIN 31 PG (26.0-33.0); MEAN CORPUSCULAR HGB CONC 34 g/dl (31.0-36.0); MEAN CORPUSCULAR VOLUME 91 fL (80-96); MONOCYTES # (AUTO) 1.1 /CMM (0.1-1.30); MONOCYTES % (AUTO) 9.1 % (2.0-12.0); NEUTROPHILS # (AUTO) 9.4 /CMM (1.8-8.9); NEUTROPHILS % (AUTO) 75.8 % (43.0-81.0); PLATELET COUNT (AUTO) 446 /CMM (150-450); RDW COEFFICIENT OF VARIATION 14.1 (11.5-15.0); RED BLOOD CELL COUNT(AUTO) 4.06 MIL/uL (4.5-6.0); WHITE BLOOD COUNT (AUTO) 12.4 K/uL (4.3-11.0)
[2017-01-16 07:32] LABS: CALCIUM, SERUM 9.5 mg/dL (8.5-10.1); CREATININE 1.2 mg/dL (0.6-1.3); MAGNESIUM 2.3 mg/dL (1.8-2.4); POTASSIUM 3.9 mmol/L (3.5-5.1)
--- NOTE | 2017-01-16 07:50 | NUR ---
LIQUEFIER CLOSING NOTES PT AWAKE AND ALERT NORCO TABLET GIVEN PER PT REQUESTED. ALL DUE MEDS GIVEN AND ALL NEEDS MET. STILL REFUSING TO CLEAN HIS ROOM AT THIS TIME. NO SIGNS OF ANY ACUTE DISTRESS NOTED. DRESSING ON BILATERAL LOWER LEGS STILL DRY AND INTACT. RIGHT FOREARM STILL SWOLLEN AND ENCOURAGE HIM TO UP ON PILLOWS MUCH POSSIBLE. ENDORSE TO AM NURSE FOR CONTINUITY OF CARE. PLACE CALL LIGHT AT REACH.
--- NOTE | 2017-01-16 08:10 | NUR ---
RN OPENING NOTES RECEIVED PATIENT IN BED, AWAKE IN SEMI HDZ POSITION, NO SOB OR DISTRESS NOTED. A/O X 4, VERBALLY RESPONSIVE AND ABLE TO MAKE NEEDS KNOWN. IV INTACT AND PATENT. KEPT PATIENT CLEAN AND COMFORTABLE IN BED, CALL LIGHT WITHIN PATIENT REACH. WILL CONTINUE TO MONITOR ACCORDINGLY.
[2017-01-16] MEDS: PANTOPRAZOLE 40 MG TABLET.DR PO SCH (09:19)
[2017-01-16] MEDS: FUROSEMIDE 40 MG TABLET PO SCH (09:19)
[2017-01-16] MEDS: FERROUS SULFATE (325 MG) 325 MG/TAB TABLET PO SCH (09:19)
[2017-01-16] MEDS: MULTIVITAMINS,THERAPEUTIC 1 UDTAB TABLET PO SCH (09:19)
[2017-01-16] MEDS: LACTOBACILLUS RHAMNOSUS GG 1 EACH CAP.SPRINK PO SCH ×2 (09:19→16:53)
[2017-01-16] MEDS: ASPIRIN EC 81 MG TABLET.DR PO SCH (09:20)
[2017-01-16] MEDS: GABAPENTIN 300 MG CAPSULE PO SCH ×3 (09:20→16:53)
[2017-01-16] MEDS: FLUCONAZOLE (100 MG) 100 MG TABLET PO SCH (09:20)
[2017-01-16] MEDS: SILVER SULFADIAZINE CREAM 400 GM JAR TP SCH (09:23)
[2017-01-16 11:00] VITALS: BP 139/80
--- NOTE | 2017-01-16 15:30 | NUR ---
RN NOTES PATIENT IS SITTING DOWN IN BED WITH NO SIGNS OF SOB OR DISTRESS NOTED.
--- NOTE | 2017-01-16 16:25 | NUR ---
RN NOTES PATIENT IS COMFORTABLE IN BED WATCHING TV IN SEMI HDZ POSITION.
[2017-01-16 16:27] VITALS: BP 140/70
--- NOTE | 2017-01-16 18:43 | NUR ---
RN CLOSING NOTES ALL NEEDS PROVIDED, ATTENDED, AND ANTICIPATED. KEPT PATIENT CLEAN AND COMFORTABLE IN BED, CALL LIGHT WITHIN PATIENT REACH, WILL CONTINUE TO MONITOR ACCORDINGLY. ENDORSED TO NEXT SHIFT RN TO CONTINUE CARE.
--- NOTE | 2017-01-16 19:20 | NUR ---
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 BREATHING NON LABORED. BOTH LOWER EXTREMITIES ARE SWOLLEN AND ALSO HIS RT HAND. BOTH LOWER LEGS CELLULITIS WITH DRESSING INTACT. IV LINE ON PATTIE MIDLINE INTACT. PT WAS SAYING HAVING LOT OF PAIN ON HIS RT HAND AND WANTS PAIN SHOT. SO THE DAY SHIFT RNCONCEPCION WILL GIVE THE PAIN SHOT. BED ON LOWER POSITION AND LOCKED FOR SAFETY. UPPER PART OF BED SIDE RAILS ARE UP FOR SAFETY. PT INSTRUCTED TO CALL FOR HELP AND CALL LIGHT WITHIN REACH. WILL CONTINUE TO MONITOR.
[2017-01-16 20:00] VITALS: BP 137/84
[2017-01-16] MEDS: ARIPIPRAZOLE 5 MG TABLET PO SCH (21:59)
[2017-01-17] MEDS: VANCOMYCIN 1 GM in IV D5W 250ml IV SCH ×2 (00:01→12:41)
[2017-01-17] MEDS: HYDROMORPHONE 1 MG/1 ML DISP.SYRIN IV PRN ×4 (02:28→21:50)
[2017-01-17] MEDS: PIPERACILLIN /TAZOBACTAM 3.375 G in IV D5W 50 ML IV SCH ×4 (04:31→21:46)
--- NOTE | 2017-01-17 07:00 | NUR ---
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 MID LINE DORIS INTACT. WILL CONTINUE TO MONITOR. CALL LIGHT AND URINAL WITHIN REACH. WILL EDORSE TO THE DAY SHIFT NURSE.
[2017-01-17 07:28] LABS: BASOPHILS # (AUTO) 0.1 /CMM (0.0-0.2); BASOPHILS % (AUTO) 0.5 % (0.0-2.0); EOSINOPHILS # (AUTO) 0.2 /CMM (0.0-0.7); EOSINOPHILS % (AUTO) 2.4 % (0.0-6.0); HEMATOCRIT 39 % (39-51); HEMOGLOBIN 12.8 g/dL (13.5-17.5); LYMPHOCYTES # (AUTO) 1.6 /CMM (0.8-4.8); LYMPHOCYTES % (AUTO) 16.2 % (20.0-44.0); MEAN CORPUSCULAR HEMOGLOBIN 30 PG (26.0-33.0); MEAN CORPUSCULAR HGB CONC 33 g/dl (31.0-36.0); MEAN CORPUSCULAR VOLUME 92 fL (80-96); MONOCYTES # (AUTO) 0.9 /CMM (0.1-1.30); MONOCYTES % (AUTO) 9.2 % (2.0-12.0); NEUTROPHILS # (AUTO) 7.2 /CMM (1.8-8.9); NEUTROPHILS % (AUTO) 71.7 % (43.0-81.0); PLATELET COUNT (AUTO) 455 /CMM (150-450); RED BLOOD CELL COUNT(AUTO) 4.21 MIL/uL (4.5-6.0); WHITE BLOOD COUNT (AUTO) 10.1 K/uL (4.3-11.0)
--- NOTE | 2017-01-17 07:57 | NUR ---
RN MS NOTES RECEIVED PATIENT IN BED, VERBALLY RESPONSIVE, IN NO APPARENT DISTRESS. PATIENT DENIES PAIN, DENIES SOB. DORIS MIND LINE PATENT. NOTED WITH BLE CELLULITIS AND RIGHT HAND SWELLING. ALL NEEDS MET, CALL LIGHT WITHIN REACH.
[2017-01-17 08:00] VITALS: BP 157/83
[2017-01-17 08:00] LABS: CALCIUM, SERUM 9.6 mg/dL (8.5-10.1); CREATININE 1.2 mg/dL (0.6-1.3); MAGNESIUM 2.3 mg/dL (1.8-2.4); POTASSIUM 3.3 mmol/L (3.5-5.1)
[2017-01-17] MEDS: ASPIRIN EC 81 MG TABLET.DR PO SCH (09:22)
[2017-01-17] MEDS: MULTIVITAMINS,THERAPEUTIC 1 UDTAB TABLET PO SCH (09:23)
[2017-01-17] MEDS: FERROUS SULFATE (325 MG) 325 MG/TAB TABLET PO SCH (09:23)
[2017-01-17] MEDS: FLUCONAZOLE (100 MG) 100 MG TABLET PO SCH (09:23)
[2017-01-17] MEDS: PANTOPRAZOLE 40 MG TABLET.DR PO SCH (09:23)
[2017-01-17] MEDS: FUROSEMIDE 40 MG TABLET PO SCH (09:23)
[2017-01-17] MEDS: GABAPENTIN 300 MG CAPSULE PO SCH ×3 (09:23→16:14)
[2017-01-17] MEDS: LACTOBACILLUS RHAMNOSUS GG 1 EACH CAP.SPRINK PO SCH ×2 (09:23→16:14)
[2017-01-17] MEDS: SILVER SULFADIAZINE CREAM 400 GM JAR TP SCH (09:26)
[2017-01-17] MEDS: DAKINS QUARTER STRENGTH (0.125%) 480 ML BOTTLE TOP SCH (09:29)
[2017-01-17] MEDS ORDERED: IV SET PRIMARY PUMP SET 1 EA INFUS.SET MC ONE (09:39)
[2017-01-17] MEDS ORDERED: SECONDARY IV SET 1 EA INFUS.SET MC ONE (09:39)
[2017-01-17] MEDS ORDERED: POTASSIUM CHLORIDE 20 MEQ TAB.PRT.SR PO ONE (11:30)
[2017-01-17] MEDS: HYDROCODONE/APAP 10/325MG 1 EA TABLET PO PRN ×2 (12:47→18:48)
--- NOTE | 2017-01-17 13:36 | NUR ---
RN MS NOTES WOUND TX TO BILATERAL LOWER EXTREMITIES DONE ORDERED.
[2017-01-17] MEDS ORDERED: IV NS 0.9% 250 ML IV ONE (15:55)
[2017-01-17 16:00] VITALS: BP 149/87
--- NOTE | 2017-01-17 18:50 | NUR ---
RN MS CLOSING NOTES PATIENT IN BED, A.O X3 , NO APPARENT DISTRESS NOTED. ALL DUE ,[place] [id number] FOR COMPLAIN OF RIGHT HAND PAIN. DORIS MIDLINE PATENT. WILL ENDORSE CARE TO PM SHIFT.
--- NOTE | 2017-01-17 19:00 | NUR ---
MS RN INITIAL NOTE PT RECEIVED IN BED, NO S/S OF RESPIRATORY DISTRESS OR SOB. IV SITE INTACT WITH NO S/S OF INFILTRATION NOTED. SAFE ENVIRONMENT PROVIDED FREE OF CLUTTERS .BED IN LOCKED, LOW POSITION. CALL LIGHT WITHIN EASY REACH. WILL CONTINUE TO MONITOR.
[2017-01-17 20:00] VITALS: BP 127/85
[2017-01-17 20:16] VITALS: BP 127/85
[2017-01-17] MEDS: ARIPIPRAZOLE 5 MG TABLET PO SCH (21:46)
[2017-01-18] MEDS: VANCOMYCIN 1 GM in IV D5W 250ml IV SCH (00:19)
[2017-01-18] MEDS: HYDROCODONE/APAP 10/325MG 1 EA TABLET PO PRN ×2 (00:44→06:51)
[2017-01-18] MEDS: PIPERACILLIN /TAZOBACTAM 3.375 G in IV D5W 50 ML IV SCH ×2 (02:40→10:32)
[2017-01-18] MEDS: HYDROMORPHONE 1 MG/1 ML DISP.SYRIN IV PRN ×2 (04:14→12:39)
--- NOTE | 2017-01-18 06:46 | NUR ---
MS RN CLOSING NOTES PATIENT COMFORTABLY ASLEEP AND EASILY AWAKEN, HEAD OF BED FOR BETTER LUNG EXPANSION. ALERT AND VERBALLY RESPONSIVE X 4, IV SITE NO S/S OF INFILTRATED, PATIENT DENIES PAIN AT THIS TIME. RESPIRATIONS EVEN AND UNLABORED. ON ATB WITH NO A/R NOTED. NO S/S OF ACUTE DISTRESS, NO SOB, NO COUGH, NO CONGESTION, SKIN WARM AND DRY TO TOUCH, AFEBRILE, ALL NURSING CARE NEEDS PROVIDED AND RENDERED, KEPT CLEAN AND DRY AND COMFORTABLE, GOOD SKIN CARE PROVIDED. FREQUENT VISUAL CHECK DONE FOR SAFETY EVERY 2 HOURS. SAFE HAZARD FREE ENVIRONMENT PROVIDED. CALL LIGHT WITHIN EASY TO REACH, ON LOW BED AT ALL TIMES TO ENSURE SAFETY, WILL ENDORSE TO THE NEXT SHIFT CONTINUE PLAN OF CARE.
[2017-01-18 08:00] VITALS: BP 152/94
--- NOTE | 2017-01-18 08:00 | NUR ---
MS RN OPENING NOTES PT RECEIVED IN BED, AWAKE, ALERT AND ORIENTED X3. NO S/S OF RESPIRATORY DISTRESS OR SOB. IV SITE INTACT WITH NO S/S OF INFILTRATION NOTED. SAFE ENVIRONMENT PROVIDED FREE OF CLUTTERS .BED IN LOCKED, LOW POSITION. CALL LIGHT WITHIN EASY REACH. WILL CONTINUE TO MONITOR
[2017-01-18 08:09] LABS: CALCIUM, SERUM 9.4 mg/dL (8.5-10.1); CREATININE 1.2 mg/dL (0.6-1.3); POTASSIUM 3.9 mmol/L (3.5-5.1)
[2017-01-18] MEDS: FERROUS SULFATE (325 MG) 325 MG/TAB TABLET PO SCH (09:57)
[2017-01-18] MEDS: MULTIVITAMINS,THERAPEUTIC 1 UDTAB TABLET PO SCH (09:57)
[2017-01-18] MEDS: LACTOBACILLUS RHAMNOSUS GG 1 EACH CAP.SPRINK PO SCH (10:06)
[2017-01-18] MEDS: FLUCONAZOLE (100 MG) 100 MG TABLET PO SCH (10:06)
[2017-01-18] MEDS: ASPIRIN EC 81 MG TABLET.DR PO SCH (10:06)
[2017-01-18] MEDS: FUROSEMIDE 40 MG TABLET PO SCH (10:07)
[2017-01-18] MEDS: GABAPENTIN 300 MG CAPSULE PO SCH ×2 (10:07→13:37)
[2017-01-18] MEDS: PANTOPRAZOLE 40 MG TABLET.DR PO SCH (10:10)
[2017-01-18] MEDS: SILVER SULFADIAZINE CREAM 400 GM JAR TP SCH (10:42)
[2017-01-18] MEDS: DAKINS QUARTER STRENGTH (0.125%) 480 ML BOTTLE TOP SCH (10:43)
[2017-01-18] MEDS ORDERED: SULFAMETH/TRIMETH 800/160 MG 1 UDTAB TABLET PO SCH (11:30)
[2017-01-18] MEDS ORDERED: GENTAMICIN 0.1% OINT 15 GM TUBE TP SCH (12:30)
[2017-01-18] MEDS ORDERED: AMPICILLIN TRIHYDRATE 250 MG CAPSULE PO SCH (13:00)
[2017-01-18] MEDS ORDERED: LEVOFLOXACIN (500MG) 500 MG TABLET PO SCH (13:00)
[2017-01-18] MEDS ORDERED: MORPHINE SULFATE INJ 2 MG/ML DISP.SYRIN IM ONE (14:30)
[2017-01-18] MEDS ORDERED: HYDROMORPHONE 1 MG/1 ML DISP.SYRIN IV ONE (14:30)
--- NOTE | 2017-01-18 14:30 | NUR ---
WOUND DEBRIDMENT DONE BY DR SAN. PATIENT TOLERATED WELL.
--- NOTE | 2017-01-18 15:18 | NUR ---
SW met with pt. to discuss discharge plan and to confirm if he was going to the following address he had provided on Saturday last week; [address] [facility]. Pt. informed SW, that his right arm hurts and is unable to make a decision at the moment until he is seen by the doctor . Pt. was hyperverbal and had to be redirected several times. workers compensation examiner informed pt. that he is being discharged and needs to provide and address. Pt. than stated that he wanted to be discharged to [address] [facility]. S.O. workers compensation examiner had patient sign the homeless waiver form and would transported to the aforementioned address via taxi.
[2017-01-18 16:00] VITALS: BP 147/90
--- NOTE | 2017-01-18 17:15 | NUR ---
PATIENT DISCHARGE VIA WHEELCHAIR ACCOMPANIED BY RN AND HAND BRIM IRONERJESUS. DISCHARGE TEACHING AND EXIT CARE DONE. D/C MIDLINE ON DORIS, MIDLINE CATHETER INTACT, NO BLEEDING. PATIENT HID THE ID ARM BAND AND REFUSED TO GIVE IT BACK. PATIENT IN STABLE CONDITION, VITAL SIGNS STABLE.
== END 2017-01-18 17:09 | disposition home or self-care (01) | DRG 383 ==
LOC: ER 21:30 → TELE-TD 01-11 03:08 → TELE1 01-11 08:42 → MEDSG1 01-11 14:43 → MED 01-11 15:10
PROVIDERS: ADMIT Family Medicine; ATTEND Family Medicine
DX: L03.115 Cellulitis of right lower limb (principal); N17.0 Acute kidney failure with tubular necrosis; I50.33 Acute on chronic diastolic (congestive) heart failure; I95.9 Hypotension, unspecified; E44.0 Moderate protein-calorie malnutrition; Z68.41 Body mass index [BMI] 40.0-44.9, adult; E87.5 Hyperkalemia; I13.0 Hypertensive heart and chronic kidney disease with heart failure and stage 1 through stage 4 chronic kidney disease, or unspecified chronic kidney disease; L97.229 Non-pressure chronic ulcer of left calf with unspecified severity; E66.01 Morbid (severe) obesity due to excess calories; I87.2 Venous insufficiency (chronic) (peripheral); B35.1 Tinea unguium; D63.8 Anemia in other chronic diseases classified elsewhere; E78.5 Hyperlipidemia, unspecified; L03.116 Cellulitis of left lower limb; I25.10 Atherosclerotic heart disease of native coronary artery without angina pectoris; K21.9 Gastro-esophageal reflux disease without esophagitis; Z79.899 Other long term (current) drug therapy; N18.9 Chronic kidney disease, unspecified; I89.0 Lymphedema, not elsewhere classified; Z59.0 Homelessness; Z85.72 Personal history of non-Hodgkin lymphomas; E78.1 Pure hyperglyceridemia; F31.9 Bipolar disorder, unspecified; G89.29 Other chronic pain; K52.9 Noninfective gastroenteritis and colitis, unspecified; F39 Unspecified mood [affective] disorder; R07.9 Chest pain, unspecified; L97.519 Non-pressure chronic ulcer of other part of right foot with unspecified severity; I73.9 Peripheral vascular disease, unspecified
CPT/HCPCS: 36415; 36569; 71010-TC; 80048-TC; 80061-TC; 80076-TC; 80202-TC; 81000-TC; 82306; 82728-TC; 83540-TC; 83605-TC; 83735-TC; 84100-TC; 84484-TC; 85025-TC; 85730-TC; 86850-TC; 87040-TC; 87070-TC; 87081-TC; 87086-TC; 87186-TC; 93970-TC; 94799-TC; A4606; A6253; A6402; G0480; J1170; J1940; J2270; J2543; J3370; J3490; J7030; J7050; J7060; Z7610

== ENCOUNTER 2017-05-16 19:09 | Inpatient (IN) | payer OTHER ==
[~2017-05-16] VITALS: Ht 175.3 cm; Wt 144.2 kg
[~2017-05-16 19:09] MED LIST changes: +GABA600T2 PO; +HYDR-548 PO
--- NOTE | 2017-05-16 19:30 | NUR ---
PT BIBSELF AMBULATORY TO ER BED 8 C/O SAPPHIRE LE CELLULITIS. PT AOX3 RR EVEN AND UNLABORED. NO SOB NOTED. NAD NOTED. NO NVD AT THIS TIME. PT GOWNED AND PLACED ON MONITOR. PT NOT DIAPHORETIC. PAC JARAMILLO AT BEDSIDE FOR EVAL.
--- NOTE | 2017-05-16 19:50 | NUR ---
MIDLINE NURSE, ADILIA ON THE WAY.
--- NOTE | 2017-05-16 19:54 | NUR ---
WOUND CULTURES COLLECTED. CALLED LAB FOR PICKUP.
[2017-05-16] MEDS ORDERED: ONDANSETRON HCL/PF 4 MG/2 ML VIAL IVP ONE (20:00)
[2017-05-16] MEDS ORDERED: IV NS 0.9% 1,000 ML BAG IV ONE (20:00)
[2017-05-16] MEDS ORDERED: PIPERACILLIN /TAZOBACTAM 3.375 G in IV D5W 50 ML IV ONE (20:00)
[2017-05-16] MEDS ORDERED: VANCOMYCIN 1 GM in IV D5W 250 ML IV ONE (20:00)
[2017-05-16] MEDS ORDERED: HYDROMORPHONE INJ 2 MG/ML DISP.SYRIN IV ONE (20:00)
--- NOTE | 2017-05-16 20:03 | NUR ---
ADILIA, MIDLINE NURSE AT BEDSIDE.
[2017-05-16] MEDS ORDERED: PIPERACILLIN /TAZOBACTAM 3.375 G VIAL IV ONE (20:13)
[2017-05-16] MEDS ORDERED: ONDANSETRON HCL/PF 4 MG/2 ML VIAL ONE (20:13)
[2017-05-16] MEDS ORDERED: HYDROMORPHONE 1 MG/1 ML DISP.SYRIN ONE ×2 (20:13→22:38)
--- NOTE | 2017-05-16 20:25 | NUR ---
PER ADILIA, MIDLINE NURSE PLACED 20G MIDLINE ON RIGHT AC.
--- NOTE | 2017-05-16 20:29 | NUR ---
XRAY AT BEDSIDE
[2017-05-16 20:31] LABS: HEMOGLOBIN 8.9 g/dL (13.5-17.5); MONOCYTES # (AUTO) 0.9 /CMM (0.1-1.30); PLATELET COUNT (AUTO) 469 /CMM (150-450)
[2017-05-16 20:34] LABS: BASOPHILS # (AUTO) 0.4 /CMM (0.0-0.2); EOSINOPHILS # (AUTO) 0.4 /CMM (0.0-0.7); EOSINOPHILS % (AUTO) 2.5 % (0.0-6.0); HEMATOCRIT 27 % (39-51); LYMPHOCYTES # (AUTO) 1.5 /CMM (0.8-4.8); LYMPHOCYTES % (AUTO) 10.4 % (20.0-44.0); MEAN CORPUSCULAR HEMOGLOBIN 30 PG (26.0-33.0); MEAN CORPUSCULAR HGB CONC 33 g/dl (31.0-36.0); MEAN CORPUSCULAR VOLUME 89 fL (80-96); MONOCYTES % (AUTO) 6.1 % (2.0-12.0); NEUTROPHILS # (AUTO) 11.2 /CMM (1.8-8.9); RDW COEFFICIENT OF VARIATION 15.8 (11.5-15.0); RED BLOOD CELL COUNT(AUTO) 2.98 MIL/uL (4.5-6.0); WHITE BLOOD COUNT (AUTO) 14.4 K/uL (4.3-11.0)
[2017-05-16 20:41] LABS: CALCIUM, SERUM 8.9 mg/dL (8.5-10.1); CREATININE 1.4 mg/dL (0.6-1.3)
[2017-05-16 20:46] LABS: BILIRUBIN,TOTAL 0.1 mg/dL (0.2-1.0)
[2017-05-16 20:47] LABS: ALBUMIN 2.6 g/dL (3.4-5.0)
[2017-05-16] MEDS ORDERED: VANCOMYCIN 1 GM VIAL ONE (21:09)
--- NOTE | 2017-05-16 21:20 | NUR ---
PAC CLINT AT BEDSIDE FOR STOOL OCCULTS.
--- NOTE | 2017-05-16 22:50 | NUR ---
REPORT GIVEN TO KARL CHAN FOR MS BED 324-1
--- NOTE | 2017-05-16 22:51 | NUR ---
PT TRANSFERRED TO MS BED 324-1 VIA RMASSENA. PT AWARE AND WITH ALL PERSONAL BELONGINGS.
[2017-05-16] MEDS ORDERED: HYDROMORPHONE 1 MG/1 ML DISP.SYRIN IV ONE (23:00)
[2017-05-16 23:06] VITALS: BP 141/67
--- NOTE | 2017-05-16 23:06 | NUR ---
RN ADMITING MS INITIAL NOTES PT BIBSELF AMBULATORY TO ER C/O SAPPHIRE LE CELLULITIS. PT AOX3 RR EVEN AND UNLABORED, ON RA. NO SOB NOTED. C/O PAIN 7/10 BILAT LOWER LEG CELLULITIS, MD HOLLOWAY CONTACTED FOR ADMITTING ORDERS. NORCO 5-325MG ORDER RECEIVED AND CARRIED OUT, GIVEN TO PT PO, WITH EFFECT. ABLE TO PROCEED WITH ASSESSMENT, SKIN INTACT, PHOTOS OF BILAT LOWER LEG CELLULITIS TAKEN PER PROTOCOL, WOUND CONSULT ORDERED. PT VERY DEMANDING AND INSULTING STUFF, ALL NEEDS MET WELL SAFETY MEASURES. PT AMBULATORY, CONTINENT WITH BOTH BOWEL AND BLADDER. WITH A PATTIE 20 G MIDLINE, PATENT AND WELL SECURED, WILL CONT' TO MONITOR PT @ THIS TIME, TX PLAN EXPLAINED, PT REFUSED TO WRAP BILAT LOWER LEG CELLULITIS AT THIS TIME.
[2017-05-17] MEDS ORDERED: MAGNESIUM HYDROXIDE 30 ML UDC PO PRN (00:30)
[2017-05-17] MEDS ORDERED: ACETAMINOPHEN 325 MG TABLET PO PRN (00:30)
[2017-05-17] MEDS ORDERED: Z GUARD REMEDY 2 OZ OINT TP PRN (00:30)
[2017-05-17] MEDS ORDERED: MAG HYDROX/AL HYDROX/SIMETH 30 ML UDC PO PRN (00:30)
[2017-05-17] MEDS ORDERED: ZOLPIDEM TARTRATE 5 MG TABLET PO PRN (00:30)
[2017-05-17] MEDS ORDERED: ONDANSETRON HCL/PF 4 MG/2 ML VIAL IVP PRN (00:30)
[2017-05-17] MEDS ORDERED: HYDROCODONE/APAP 5/325MG 1 EACH TABLET ONE (00:44)
[2017-05-17] MEDS: HYDROCODONE/APAP 5/325MG 1 EACH TABLET PO PRN (00:48)
[2017-05-17] MEDS ORDERED: PIPERACILLIN /TAZOBACTAM 3.375 G VIAL IV ONE (05:03)
[2017-05-17] MEDS ORDERED: HYDROCODONE/APAP 10/325MG 1 EA TABLET ONE (05:06)
[2017-05-17] MEDS: PIPERACILLIN /TAZOBACTAM 3.375 G in IV D5W 50 ML IV SCH ×3 (05:44→17:53)
[2017-05-17] MEDS ORDERED: HYDROCODONE/APAP 10/325MG 1 EA TABLET PO SCH (06:00)
--- NOTE | 2017-05-17 06:24 | NUR ---
0600 [place] 10-370MG NOT ABLE TO SCAN, EVEN MANUAL BAR-CODE NOT REORGANIZED, D/T HOW DR HOLLOWAY CARRIED OUT ORDER. I WILL ENDORSE FOR AM SHIFT TO VERIFY ORDER.
--- NOTE | 2017-05-17 06:28 | NUR ---
RN MS CLOSING NOTES ENDORSED PT AOX3 RR EVEN AND UNLABORED, ON RA. NO SOB NOTED. C/O PAIN 7/10 BILAT LOWER LEG CELLULITIS, NORCO 10-325MG ORDER , GIVEN TO PT PO, WITH EFFECT. ABLE TO PROCEED WITH ASSESSMENT, SKIN INTACT, PHOTOS OF BILAT LOWER LEG CELLULITIS . PT VERY DEMANDING AND INSULTING STUFF, ALL NEEDS MET WELL SAFETY MEASURES. PT AMBULATORY, CONTINENT WITH BOTH BOWEL AND BLADDER. WITH A PATTIE 20 G MIDLINE, PATENT AND WELL SECURED, WILL CONT' TO MONITOR PT @ THIS TIME, TX PLAN EXPLAINED.
--- NOTE | 2017-05-17 07:15 | NUR ---
UPON ADMITTION PT REQUESTED TO TAKE INVENTORY, REFUSED EXPLAINED IMPORTANCE OF RECORDING BELONGING, STILL REFUSED, CLAIMS NOT NOW, HE STATED "I NEED TIME" ENDORSED TO AM SHIFT NURSE TO F/U.
--- NOTE | 2017-05-17 07:19 | NUR ---
TWO ORDERS OF ZOSYN ORDERED 0503 WAS [facility]OC[facility], SCANNED THE 0600 ORDERED.
[2017-05-17 08:00] VITALS: BP 127/70
--- NOTE | 2017-05-17 08:00 | NUR ---
RN INITIAL NOTES: REC'D PT FROM [place], NOT IN ANY DISTRESS, A/O X4, ABLE TO MAKE NEEDS KNOWN. HAS PATTIE MIDLINE, SL, 2 LUMENS - 1 LUMEN NOT FLUSHING WELL, OTHER ONE PATENT & INTACT W/ NO S/SX OF INFECTION/INFILTRATION NOTED. NOTED BLE CELLULITIS. PROVIDED COMFORT & SAFETY MEASURES. BED KEPT LOW & IN LOCKED POS. CALL LIGHT PLACED W/IN REACH. WILL CONTINUE TO MONITOR & ATTEND PT'S NEEDS.
[2017-05-17] MEDS ORDERED: FEE PK DOSING 1 MIN EA MC ONE (08:54)
[2017-05-17] MEDS: VANCOMYCIN 1 GM in IV D5W 250 ML IV SCH ×2 (09:17→22:57)
[2017-05-17] MEDS: FERROUS SULFATE (325 MG) 325 MG/TAB TABLET PO SCH (09:18)
[2017-05-17] MEDS: PANTOPRAZOLE 40 MG TABLET.DR PO SCH (09:18)
[2017-05-17] MEDS: ASPIRIN EC 81 MG TABLET.DR PO SCH (09:18)
[2017-05-17] MEDS: GABAPENTIN 300 MG CAPSULE PO SCH ×3 (09:18→17:52)
[2017-05-17] MEDS: LISINOPRIL (5MG) 5 MG TABLET PO SCH (09:19)
[2017-05-17] MEDS: METOPROLOL TARTRATE 25 MG TABLET PO SCH ×2 (09:19→17:53)
[2017-05-17] MEDS: ISOSORBIDE DINITRATE (10MG) 10 MG TABLET PO SCH (09:19)
[2017-05-17] MEDS: FUROSEMIDE 20 MG TABLET PO SCH (09:19)
[2017-05-17] MEDS: SILVER SULFADIAZINE CREAM 25 GM TUBE TP SCH (09:20)
--- NOTE | 2017-05-17 09:25 | NUR ---
WOUND CARE CONSULT: PT FOLLOWED BY DR SAN FOR LOWER LEG ULCERS. DEFER TO DR SAN FOR WOUND TREATMENT PLAN. DISCUSSED WITH NURSING STAFF. WILL SEE PRN.
--- NOTE | 2017-05-17 09:44 | NUR ---
RN NOTES: PT SEEN & EXAMINED BY DR. REY. PT C/O SEVERE PAIN, DOESN'T WANT NORCO TABLET. PER MD, START MORPHINE SULFATE 2 MG IVP EVERY 4 HOURS PRN. PT MADE AWARE.
[2017-05-17] MEDS ORDERED: MORPHINE SULFATE INJ 2 MG/ML DISP.SYRIN IV PRN (10:00)
[2017-05-17] MEDS: MULTIVITAMINS,THERAGRAN 1 UDTAB TABLET PO SCH (10:05)
[2017-05-17] MEDS: MORPHINE SULFATE INJ 10 MG/ML DISP.SYRIN IV PRN ×2 (10:06→20:31)
[2017-05-17] MEDS: HYDROCODONE/APAP 10/325MG 1 EA TABLET PO PRN (13:43)
--- NOTE | 2017-05-17 14:27 | NUR ---
Social service consult requested by Dr. Brambila for homelessness. Pt. is a 61 year old male who was admitted to [facility] for cellulitis. TAY met with pt. bedside. SW is familiar with pt. from previous admissions. Pt. has a large suitcase and all his belongings bedside. Pt. was cooperative and friendly with SW during the assessment. Pt. continues to live on the streets and sleeps on the streets in [place]. Pt. denies suicidal/homicidal ideations, hallucinations, and substance abuse. Pt. denies history of psychiatric hospitalizations. Pt. states he has no family. Pt. receives SSI Benefits (about $973/monthly). Pt. denies using alcohol and drugs. Pt. is a non-smoker. TAY offered halfway placement to pt., however, pt. declined. Pt. is willing to accept homeless resources. Once medically cleared, pt. wants to be discharged via taxi or bus tokens to [facility] and [facility], [facility]. Since SW is not available during the weekend, TAY gave family service caseworker [facility] resources to give to pt. if pt. is discharge over the weekend.
[2017-05-17 16:00] VITALS: BP 143/70
--- NOTE | 2017-05-17 18:45 | NUR ---
RN CLOSING NOTES: NO ACUTE CHANGES NOTED W/IN SHIFT. PT TOLERATED O2 AT 2-3LPM/NC, NO SOB. PT IS FOR MIDLINE INSERTION, ONGOING. WOUND CARE DONE ON BLE CELLULITIS. KEPT WELL RESTED. NEEDS ATTENDED. BED KEPT LOW & IN LOCKED POS. CALL LIGHT PLACED W/IN REACH. WILL ENDORSE TO PM RN FOR CANDI. Addendum: 05/17/17 at 1902 by ROCIO DANIEL RN KEZIA MCFADDEN RN FAILED TO REINSERT MIDLINE X2. SHE SAID THAT ADILIA WILL COME TO TRY REINSERT A NEW ONE. PT MADE AWARE. WILL ENDORSE ACCORDINGLY.
--- NOTE | 2017-05-17 19:30 | NUR ---
MS RN OPENING NOTES: PATIENT IN BED, AOX4, ON O2 AT 2 LPM VIA NC, BREATHING EVEN AND UNLABORED. APPEARS CALM AND IN NO DISTRESS, HOWEVER, STATES THAT HE HAS PAIN OVER BLE NOW SCALED AT 6/10 AND INCREASING. PATIENT HAS PATTIE MIDLINE THAT IS NOT FLUSHING, FOR MIDLINE REINSERTION, JODI PAT RN, AWARE. BLE RED AND SWOLLEN, WITH ABD PAD DRESSINGS. PROVIDED FOR COMFORT AND SAFETY. BED IN LOWEST AND LOCKED POSITION. WILL CONT TO MONITOR.
--- NOTE | 2017-05-17 19:59 | NUR ---
RN NOTES: KARL PAT REINSERTED NEW DORIS MIDLINE G18, WITH GOOD BLOOD BACKFLOW. PATTIE MIDLINE REMOVED.
[2017-05-17 20:00] VITALS: BP 101/58
--- NOTE | 2017-05-17 20:40 | NUR ---
RN NOTES: PATIENT C/O 10/10 PAIN OVER BLE, AND IV MORPHINE 2 MG GIVEN. WOUND DRESSING OVER BLE ALSO CHANGED, REAPPLIED SILVADENE CREAM AT THIS TIME. WILL CONT TO MONITOR.
--- NOTE | 2017-05-17 22:59 | NUR ---
RN NOTES: STARTED VANCOMYCIN JUST NOW SINCE EARLIER ZOSYN DOSE WAS RESTARTED AND FINISHED DUE MIDLINE REINSERTION.
[2017-05-17] MEDS: ATORVASTATIN 10 MG TABLET PO SCH (23:05)
[2017-05-17] MEDS: ARIPIPRAZOLE 5 MG TABLET PO SCH (23:06)
[2017-05-18] MEDS: PIPERACILLIN /TAZOBACTAM 3.375 G in IV D5W 50 ML IV SCH ×5 (00:59→23:38)
[2017-05-18] MEDS: MORPHINE SULFATE INJ 10 MG/ML DISP.SYRIN IV PRN ×5 (01:56→20:48)
--- NOTE | 2017-05-18 01:57 | NUR ---
RN NOTES: PATIENT C/O 10/10 BLE PAIN. ADMINISTERED MORPHINE 2 MG IV PRN. POSITIONED FOR SAFETY. WILL CONT TO MONITOR.
--- NOTE | 2017-05-18 07:00 | NUR ---
RN INITIAL NOTES: PATIENT RESTING IN BED. PATIENT AO X4. PATIENT DENIES PAIN AT THE MOMENT. NONLABORED BREATHING ON ROOM AIR. IV SITE PATENT AND INTACT. BED IN LOWEST LOCKED POSITION. CALL LIGHT WTIHIN REACH. WILL CONTINUE TO MONITOR
--- NOTE | 2017-05-18 07:00 | NUR ---
MS RN CLOSING NOTES: PATIENT IN BED, AOX4, ON O2 AT 2 LPM VIA NC, BREATHING EVEN AND UNLABORED. APPEARS CALM AND IN NO DISTRESS. DORIS MIDLINE INTACT AND PATENT TO FLUSH. DUE MEDS GIVEN. PROVIDED FOR COMFORT AND SAFETY. WOUND DRESSINGS DONE. WILL ENDORSE TO AM RN FOR CANDI.
[2017-05-18 07:52] LABS: BASOPHILS % (AUTO) 0.2 % (0.0-2.0); EOSINOPHILS # (AUTO) 0.1 /CMM (0.0-0.7); EOSINOPHILS % (AUTO) 0.9 % (0.0-6.0); HEMATOCRIT 22 % (39-51); HEMOGLOBIN 7.9 g/dL (13.5-17.5); LYMPHOCYTES # (AUTO) 1.1 /CMM (0.8-4.8); LYMPHOCYTES % (AUTO) 9.6 % (20.0-44.0); MEAN CORPUSCULAR HEMOGLOBIN 30 PG (26.0-33.0); MEAN CORPUSCULAR HGB CONC 36 g/dl (31.0-36.0); MEAN CORPUSCULAR VOLUME 83 fL (80-96); MONOCYTES # (AUTO) 1.4 /CMM (0.1-1.30); MONOCYTES % (AUTO) 13.1 % (2.0-12.0); NEUTROPHILS # (AUTO) 8.4 /CMM (1.8-8.9); NEUTROPHILS % (AUTO) 76.2 % (43.0-81.0); PLATELET COUNT (AUTO) 254 /CMM (150-450); RDW COEFFICIENT OF VARIATION 19.4 (11.5-15.0); RED BLOOD CELL COUNT(AUTO) 2.63 MIL/uL (4.5-6.0)
[2017-05-18 08:00] VITALS: BP 120/64
[2017-05-18] MEDS: FERROUS SULFATE (325 MG) 325 MG/TAB TABLET PO SCH (08:49)
[2017-05-18] MEDS: ASPIRIN EC 81 MG TABLET.DR PO SCH (08:49)
[2017-05-18] MEDS: PANTOPRAZOLE 40 MG TABLET.DR PO SCH (08:49)
[2017-05-18] MEDS: MULTIVITAMINS,THERAGRAN 1 UDTAB TABLET PO SCH (08:50)
[2017-05-18] MEDS: GABAPENTIN 300 MG CAPSULE PO SCH ×3 (08:50→17:00)
[2017-05-18] MEDS: FUROSEMIDE 20 MG TABLET PO SCH (08:51)
[2017-05-18] MEDS: LISINOPRIL (5MG) 5 MG TABLET PO SCH (08:51)
[2017-05-18] MEDS: ISOSORBIDE DINITRATE (10MG) 10 MG TABLET PO SCH (08:52)
[2017-05-18 09:16] LABS: CALCIUM, SERUM 8.8 mg/dL (8.5-10.1); CREATININE 1.2 mg/dL (0.6-1.3); MAGNESIUM 2.3 mg/dL (1.8-2.4); PHOSPHORUS 2.7 mg/dL (2.5-4.9); POTASSIUM 3.3 mmol/L (3.5-5.1)
[2017-05-18] MEDS: VANCOMYCIN 1 GM in IV D5W 250 ML IV SCH ×2 (09:30→20:58)
[2017-05-18] MEDS: METOPROLOL TARTRATE 25 MG TABLET PO SCH ×2 (09:52→17:00)
[2017-05-18] MEDS: SILVER SULFADIAZINE CREAM 25 GM TUBE TP SCH (14:04)
[2017-05-18] MEDS: GENTAMICIN 0.1% OINT 15 GM TUBE TP SCH (14:04)
--- NOTE | 2017-05-18 14:37 | NUR ---
RN NOTES: PATIENT STATES THAT HIS PHONE IS BROKEN DUE TO WATER SPILLAGE EARLIER IN THE DAY. 10 CC OF WATER WERE SPILLED ON THE PATIENT'S TABLE EARLIER IN THE MORNING, AND WIPED IMMEDIATELY. AROUND 12:30, I ALSO HELPED PATIENT BY GIVING HIM A CUP OF WATER, AND NOTED NO WATER ON THE TABLE. I ALSO ADMINISTERED MEDICATIONS AROUND 13:50 AND HELPED PATIENT WITH A CUP OF WATER. THE TABLE WAS DRY. SINCE THE MOMENT,IT WAS NOTED THAT THE PATIENT'S PHONE WAS IN THE PHONE BOX.
[2017-05-18] MEDS: HYDROCODONE/APAP 10/325MG 1 EA TABLET PO PRN ×2 (15:42→23:15)
[2017-05-18 16:00] VITALS: BP 121/61
[2017-05-18] MEDS ORDERED: POTASSIUM CHLORIDE 20 MEQ TAB.PRT.SR PO SCH (17:00)
--- NOTE | 2017-05-18 19:30 | NUR ---
RN CLOSING NOTES: PATIENT RESTING IN BED. PATIENT AO X4. PATIENT DENIES PAIN AT THE MOMENT. NONLABORED BREATHING ON ROOM AIR. IV SITE PATENT AND INTACT. BED IN LOWEST LOCKED POSITION. DR REY AWARE OF LABS WELL CULTURE RESULTS. NO NEW ORDERS. PATIENT ENCOURAGED TO BE CLEAN AND DRY THROUGHOUT SHIFT. PATIENT REFUSED LINEN CHANGE, REFUSED 1700 METOPROLOL AND GABAPENTIN. BENEFITS AND RISKS EXPLAINED. PATIENT STILL REFUSED. WOUND CARE DONE. IT WAS REFUSED IN THE MORNING. CALL LIGHT WTIHIN REACH. ENDORSED TO NEXT SHIFT.
--- NOTE | 2017-05-18 19:35 | NUR ---
MS RN OPENING NOTES: PATIENT IN BED, AOX4, ON O2 AT 2 LPM VIA NC, BREATHING EVEN AND UNLABORED. BREATH SOUNDS CLEAR TO AUSCULTATION. APPEARS CALM AND IN NO DISTRESS, BUT STATES THAT HE HAS 10/10 PAIN OVER HIS BLE. PATIENT HAS DORIS MIDLINE INTACT AND PATENT TO FLUSH. BLE WITH CLEAN AND INTACT DRESSING. MAINTAINED ELEVATED ON PILLOWS. PROVIDED FOR COMFORT AND SAFETY. BED IN LOWEST AND LOCKED POSITION, SIDERAILS UPX2. WILL CONT TO MONITOR.
[2017-05-18 20:00] VITALS: BP_SYST 122; BP_SYST 123; BP_DIAS 68
--- NOTE | 2017-05-18 20:58 | NUR ---
RN NOTES: VANCO TROUGH: 13. ADMINISTERED SCHEDULED VANCO 1 GM IV Q 12 HR.
[2017-05-18] MEDS: ATORVASTATIN 10 MG TABLET PO SCH (21:04)
[2017-05-18] MEDS: ARIPIPRAZOLE 5 MG TABLET PO SCH (21:05)
[2017-05-19 02:30] VITALS: BP 148/119
--- NOTE | 2017-05-19 02:35 | NUR ---
RN NOTES: PATIENT COMPLAINED OF PRESSURE LIKE CHEST PAIN, STARTED TO BE ANXIOUS. ASKED FOR FACE MASK O2 DELIVERY. GAVE O2 VIA FACE MASK PER REQUEST. O2 SAT AT 100%. BP CHECKED AT 148/119, HR: 103. CALLED DR PEREA, ORDERS MADE FOR NTG 0.4 MG SL PRN, EKG AND TROPONIN. NOTED AND CARRIED OUT.
[2017-05-19] MEDS: MORPHINE SULFATE INJ 10 MG/ML DISP.SYRIN IV PRN ×6 (02:40→23:09)
[2017-05-19] MEDS ORDERED: NITROGLYCERIN 0.4 MG/TAB BOTTLE ONE (03:24)
[2017-05-19] MEDS: NITROGLYCERIN 0.4 MG/TAB BOTTLE SL PRN ×2 (03:27→23:55)
[2017-05-19 04:09] VITALS: BP 128/69
--- NOTE | 2017-05-19 04:10 | NUR ---
RN NOTES: TROPONIN NEGATIVE. BP DECREASED TO 128/69, HR: 93. PATIENT STATES THAT HIS CHEST PAIN HAS BEEN RELIEVED, NOW INTERMITTENTLY SLEEPING. REFUSED TO HAVE DRESSINGS OVER BLE CHANGED AT THIS TIME, SAYING HE IS STILL NOT READY. WILL CONT TO MONITOR.
[2017-05-19] MEDS: PIPERACILLIN /TAZOBACTAM 3.375 G in IV D5W 50 ML IV SCH ×4 (05:49→23:10)
[2017-05-19] MEDS: HYDROCODONE/APAP 10/325MG 1 EA TABLET PO PRN ×2 (05:49→13:41)
--- NOTE | 2017-05-19 07:30 | NUR ---
RN OPENING NOTES RECEIVED PT. IN BED A&OX4. NO S/S OF SOB, BREATHING ON ROOM AIR UNLABORED, AND EVENLY. PT. HAS MASK NEAR BEDSIDE ON OXYGEN. IV FLUIDS RUNNING. BED IS IN LOWEST, LOCKED POSITION, 2 SIDE RAILS UP, AND INSTRUCTED PT. TO USE CALL LIGHT FOR ASSISTANCE. WILL CONTINUE TO ASSESS AND MONITOR. PT. IS HAVING WOUND CARE AT BEDSIDE.
--- NOTE | 2017-05-19 07:49 | NUR ---
MS RN CLOSING NOTES: PATIENT IN BED, AOX4, ON O2 VIA FACE MASK AT 10 PER PATIENT REQUEST, INTERMITTENTLY USING IT, BREATHING EVEN AND UNLABORED. DORIS MIDLINE INTACT AND PATENT TO FLUSH. BLE WITH CLEAN, INTACT DRESSING. DUE MEDS GIVEN. WOUND CARE STILL BEING DONE. PROVIDED FOR COMFORT AND SAFETY. BED IN LOWEST AND LOCKED POSITION, SIDERAILS UPX2. WILL ENDORSE TO AM RN FOR CANDI.
[2017-05-19] MEDS: GABAPENTIN 300 MG CAPSULE PO SCH ×3 (09:00→17:33)
[2017-05-19] MEDS: VANCOMYCIN 1 GM in IV D5W 250 ML IV SCH ×2 (09:14→21:34)
[2017-05-19] MEDS: PANTOPRAZOLE 40 MG TABLET.DR PO SCH (09:15)
[2017-05-19] MEDS: ASPIRIN EC 81 MG TABLET.DR PO SCH (09:16)
[2017-05-19] MEDS: FERROUS SULFATE (325 MG) 325 MG/TAB TABLET PO SCH (09:16)
[2017-05-19] MEDS: MULTIVITAMINS,THERAGRAN 1 UDTAB TABLET PO SCH (09:16)
[2017-05-19] MEDS: FUROSEMIDE 20 MG TABLET PO SCH (09:16)
[2017-05-19] MEDS: METOPROLOL TARTRATE 25 MG TABLET PO SCH ×2 (09:16→17:33)
[2017-05-19] MEDS: ISOSORBIDE DINITRATE (10MG) 10 MG TABLET PO SCH (09:17)
[2017-05-19] MEDS: LISINOPRIL (5MG) 5 MG TABLET PO SCH (09:17)
[2017-05-19] MEDS: SILVER SULFADIAZINE CREAM 25 GM TUBE TP SCH (09:18)
[2017-05-19] MEDS: GENTAMICIN 0.1% OINT 15 GM TUBE TP SCH (09:18)
[2017-05-19 10:00] VITALS: BP 125/76
[2017-05-19 10:52] LABS: BASOPHILS % (AUTO) 0.4 % (0.0-2.0); EOSINOPHILS # (AUTO) 0.2 /CMM (0.0-0.7); EOSINOPHILS % (AUTO) 1.7 % (0.0-6.0); HEMATOCRIT 25 % (39-51); HEMOGLOBIN 8.1 g/dL (13.5-17.5); LYMPHOCYTES % (AUTO) 8.9 % (20.0-44.0); MEAN CORPUSCULAR HEMOGLOBIN 29 PG (26.0-33.0); MEAN CORPUSCULAR HGB CONC 33 g/dl (31.0-36.0); MEAN CORPUSCULAR VOLUME 89 fL (80-96); MONOCYTES # (AUTO) 0.8 /CMM (0.1-1.30); MONOCYTES % (AUTO) 7.4 % (2.0-12.0); NEUTROPHILS # (AUTO) 8.7 /CMM (1.8-8.9); NEUTROPHILS % (AUTO) 81.6 % (43.0-81.0); PLATELET COUNT (AUTO) 515 /CMM (150-450); RDW COEFFICIENT OF VARIATION 16.5 (11.5-15.0); RED BLOOD CELL COUNT(AUTO) 2.77 MIL/uL (4.5-6.0); WHITE BLOOD COUNT (AUTO) 10.7 K/uL (4.3-11.0)
[2017-05-19 11:05] LABS: CALCIUM, SERUM 8.7 mg/dL (8.5-10.1); MAGNESIUM 2.2 mg/dL (1.8-2.4); PHOSPHORUS 1.8 mg/dL (2.5-4.9); POTASSIUM 3.4 mmol/L (3.5-5.1)
[2017-05-19] MEDS ORDERED: K PHOS NEUTRAL 250 MG TABLET PO ONE (13:00)
--- NOTE | 2017-05-19 19:30 | NUR ---
RN CLOSING NOTES PT. IN BED A&OX4. NO S/S OF SOB, BREATHING ON ROOM AIR UNLABORED, AND EVENLY. PT. HAS MASK NEAR BEDSIDE ON OXYGEN. RIGHT UPPER ARM MIDLINE IV ACCESS IS INTACT AND PATENT WITH SALINE FLUSH. BED IS IN LOWEST, LOCKED POSITION, 2 SIDE RAILS UP, AND INSTRUCTED PT. TO USE CALL LIGHT FOR ASSISTANCE. PT.'S LEFT LOWER EXTREMITY IS OPEN TO AIR IRRIGATED WITH NORMAL SALINE. WILL ENDORSE REPORT TO NURSE.
[2017-05-19 19:59] VITALS: BP 99/46
[2017-05-19] MEDS ORDERED: LIDOCAINE 5% OINT 35.44 GM TUBE TP PRN (20:30)
[2017-05-19] MEDS: ARIPIPRAZOLE 5 MG TABLET PO SCH (21:33)
[2017-05-19] MEDS: ATORVASTATIN 10 MG TABLET PO SCH (21:34)
[2017-05-19 22:00] VITALS: BP 99/46
[2017-05-19 23:59] VITALS: BP 136/74
--- NOTE | 2017-05-20 | NUR ---
05/19/17, 23:45 pt is complaining of chest pain of 8/10. VS: Bp 136/74. Hr 97, O2 sat 94 on face mask, RR is 20. nitroglycerin sublingual is given as prescribed . 05/20/17 pt states " my pain is gone, i don't have chest pain now". BP 111/64, HR: 98, O2 sat 94%, RR:19. patient is asymptomatic, no sweting or distress at this time. will continue to monitor for any changes.
[2017-05-20] MEDS: MORPHINE SULFATE INJ 10 MG/ML DISP.SYRIN IV PRN ×5 (03:46→23:06)
[2017-05-20] MEDS: PIPERACILLIN /TAZOBACTAM 3.375 G in IV D5W 50 ML IV SCH ×4 (05:17→23:12)
[2017-05-20] MEDS: HYDROCODONE/APAP 5/325MG 1 EACH TABLET PO PRN (05:18)
--- NOTE | 2017-05-20 06:53 | NUR ---
END OF SHIFT SUMMERY: Pt is A&O X 4. on room air and face mask saturating well. VSS. Complained of chronic pain on the bilateral LE, morphin and norco were given with moderate relief. Pt still on vancomyacin and zosyn as prescribed. No episodes of N/V noticed throughout shift. Fall precautions are implemented.Consent is obtained and preop checklist is done for the wound debridement. POC:DEBRIDEMENT BILATERAL LOWER EXTREMITY ULCERATION. No distress noted,no questions or concerns at this time. will endorse patient and POC to the next nurse to continue the care.
[2017-05-20 07:10] LABS: CALCIUM, SERUM 8.7 mg/dL (8.5-10.1); CREATININE 1.1 mg/dL (0.6-1.3); PHOSPHORUS 2.7 mg/dL (2.5-4.9); POTASSIUM 3.6 mmol/L (3.5-5.1)
[2017-05-20 08:00] VITALS: BP 124/68
--- NOTE | 2017-05-20 08:43 | NUR ---
RN OPENING NOTES RECEIVED PATIENT AWAKE IN BED RESTING COMFORTABLY. AOX4. DENIES SOB. DENIES CP. CHRONIC PAIN TO THE BLE. RESPIRATIONS EVEN AND UNLABORED. NO ACUTE DISTRESS. DORIS MIDLINE. PATIENT NPO FOR DEBRIDEMENT TODAY. CONSENT SIGNED AND PLACED IN CHART. PATIENT REFUSING WOUND TREATMENT AT THIS TIME. COMPLAINING IT IS TOO PAINFUL. WILL EDUCATE. BED LOCKED IN THE LOWEST POSITION WITH SIDERAILS UP X2. CALL LIGHT WITHIN REACH. WILL CONTINUE TO MONITOR, ASSESS AND EDUCATE PATIENT THROUGHOUT SHIFT.
[2017-05-20] MEDS: FUROSEMIDE 20 MG TABLET PO SCH (09:00)
[2017-05-20] MEDS: VANCOMYCIN 1 GM in IV D5W 250 ML IV SCH ×2 (10:09→21:46)
[2017-05-20] MEDS: MULTIVITAMINS,THERAGRAN 1 UDTAB TABLET PO SCH (10:09)
[2017-05-20] MEDS: LISINOPRIL (5MG) 5 MG TABLET PO SCH (10:10)
[2017-05-20] MEDS: GABAPENTIN 300 MG CAPSULE PO SCH ×3 (10:10→18:56)
[2017-05-20] MEDS: METOPROLOL TARTRATE 25 MG TABLET PO SCH ×2 (10:11→18:57)
[2017-05-20] MEDS: ISOSORBIDE DINITRATE (10MG) 10 MG TABLET PO SCH (10:11)
[2017-05-20] MEDS: FERROUS SULFATE (325 MG) 325 MG/TAB TABLET PO SCH (10:12)
[2017-05-20] MEDS: ASPIRIN EC 81 MG TABLET.DR PO SCH (10:12)
[2017-05-20] MEDS: PANTOPRAZOLE 40 MG TABLET.DR PO SCH (10:12)
[2017-05-20] MEDS: GENTAMICIN 0.1% OINT 15 GM TUBE TP SCH (10:24)
[2017-05-20] MEDS: SILVER SULFADIAZINE CREAM 25 GM TUBE TP SCH (10:24)
[2017-05-20] MEDS: DAKINS QUARTER STRENGTH (0.125%) 480 ML BOTTLE TOP SCH (10:26)
--- NOTE | 2017-05-20 10:36 | NUR ---
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 PLEASE SEE WOUND TREATMENT ORDERS. ALL DISCUSSED WITH NURSING STAFF.
--- NOTE | 2017-05-20 12:47 | NUR ---
RN NOTES DR. SAN TO COME FOR DEBRIDEMENT. CONSENT SIGNED AND PLACED IN CHART. ORDERS GIVEN TO LIDOCAINE 50ML 1% AND 0.2 MG IV DILAUDID ONE TIME. WILL CARRY OUT ORDERS GIVEN.
[2017-05-20] MEDS ORDERED: LIDOCAINE 1% INJ 50 ML MDV IJ ONE (13:00)
[2017-05-20] MEDS ORDERED: HYDROMORPHONE 1 MG/1 ML DISP.SYRIN IV ONE (13:00)
--- NOTE | 2017-05-20 13:02 | NUR ---
RN NOTES PATIENT REFUSING DEBRIDEMENT DUE TO LOW H/H. REQUESTING FOR BLOOD TRANSFUSION FOR LOW H/H. DISCUSSED WITH DR. REY AND WILL NOT HAVE BLOOD TRANSFUSION. WILL REATTEMPT DEBRIDEMENT TOMORROW.
[2017-05-20 16:00] VITALS: BP 112/64
--- NOTE | 2017-05-20 19:30 | NUR ---
RN NOTES RECEIVED PATIENT IN BED WITH EYES CLOSED. EASILY AROUSABLE. AO X 3, ABLE TO MAKE NEEDS KNOW. NO SIGNS OF PAIN NOTED. IV PATENT, INTACT; FLUSHED. ON LOW BED WTIH BILATERAL UPPER SIDE RAILS UP. CALL LIGHT WITHIN EASY REACH. WILL CONTINUE TO MONITOR.
--- NOTE | 2017-05-20 19:40 | NUR ---
RN CLOSING NOTES PATIENT RESTING COMFORTABLY IN BED AT THIS TIME. AOX4. COMPLAINING OF 9/10 LEG PAIN. WILL ENDORSE TO NIGHT RN. DENIES CP. DENIES SOB. IV ACCESS PATENT AND INTACT. ALL MEDS GIVEN APPROPRIATE. ALL NEEDS MET. WILL ENDORSE TO NIGHT RN FOR CANDI.
[2017-05-20 20:00] VITALS: BP 107/51
[2017-05-20] MEDS: ATORVASTATIN 10 MG TABLET PO SCH (21:47)
[2017-05-20] MEDS: ARIPIPRAZOLE 5 MG TABLET PO SCH (21:47)
[2017-05-20] MEDS: HYDROCODONE/APAP 10/325MG 1 EA TABLET PO PRN (22:02)
[2017-05-21] MEDS: MORPHINE SULFATE INJ 10 MG/ML DISP.SYRIN IV PRN ×4 (03:30→18:14)
--- NOTE | 2017-05-21 06:24 | NUR ---
RN NOTES PATIENT ASLEEP, EASILY AROUSABLE; RESPIRATIONS EVEN. NEEDS ATTENDED. DUE MEDS GIVEN WITH NO ASE NOTED. SAFETY PRECAUTIONS AND COMFORT MEASURES IN PLACE. WILL GIVE REPORT TO DAY SHIFT FOR CONTINUITY OF CARE.
[2017-05-21] MEDS: PIPERACILLIN /TAZOBACTAM 3.375 G in IV D5W 50 ML IV SCH ×3 (06:34→18:16)
[2017-05-21 07:35] LABS: CALCIUM, SERUM 9.1 mg/dL (8.5-10.1); CREATININE 1.2 mg/dL (0.6-1.3); POTASSIUM 3.7 mmol/L (3.5-5.1)
--- NOTE | 2017-05-21 07:35 | NUR ---
RN NOTES PATIENT ASLEEP, EASILY AROUSABLE; RESPIRATIONS EVEN. NEEDS ATTENDED. PT CONTINUED ON PAIN MEDICATION PRN ORDERED SAFETY PRECAUTIONS AND COMFORT MEASURES IN PLACE. PT NON COMPLIANT WITH ELEVATING BLE AND WOUND TREATMENT WILL CONTINUE TO MONITOR AT THIS TIME
[2017-05-21 08:00] VITALS: BP 118/66
[2017-05-21] MEDS: LISINOPRIL (5MG) 5 MG TABLET PO SCH ×2 (09:00→12:40)
[2017-05-21] MEDS: SILVER SULFADIAZINE CREAM 25 GM TUBE TP SCH (09:00)
[2017-05-21] MEDS: GABAPENTIN 300 MG CAPSULE PO SCH ×3 (09:00→17:00)
[2017-05-21] MEDS: METOPROLOL TARTRATE 25 MG TABLET PO SCH ×2 (09:00→19:27)
[2017-05-21] MEDS: GENTAMICIN 0.1% OINT 15 GM TUBE TP SCH (09:00)
[2017-05-21] MEDS: ISOSORBIDE DINITRATE (10MG) 10 MG TABLET PO SCH (09:00)
[2017-05-21] MEDS: FUROSEMIDE 20 MG TABLET PO SCH (09:00)
--- NOTE | 2017-05-21 09:30 | NUR ---
RN NOTES PATIENT WANTS WOUND CARE TO BE DONE WITH DEBRIDEMENT TODAY WELL SOLUTIONS AND MEDS FOR WOUNDS TO BE GIVEN AT THAT TIME, DR. MCHUGH WILL SEE PATIENT AND DO DEBRIDEMENT TODAY CONSENT SIGNED, WILL CONTINUE TO MONITOR Addendum: 05/21/17 at 1114 by KEZIA KRISHNAMURTHY RN Amended: Links added.
[2017-05-21] MEDS: VANCOMYCIN 1 GM in IV D5W 250 ML IV SCH (09:35)
[2017-05-21 10:00] VITALS: BP 118/66
[2017-05-21] MEDS: ASPIRIN EC 81 MG TABLET.DR PO SCH (10:00)
[2017-05-21] MEDS: FERROUS SULFATE (325 MG) 325 MG/TAB TABLET PO SCH (10:02)
[2017-05-21] MEDS: PANTOPRAZOLE 40 MG TABLET.DR PO SCH (10:02)
[2017-05-21] MEDS: MULTIVITAMINS,THERAGRAN 1 UDTAB TABLET PO SCH (10:07)
[2017-05-21 11:56] LABS: BASOPHILS % (AUTO) 0.3 % (0.0-2.0); EOSINOPHILS # (AUTO) 0.3 /CMM (0.0-0.7); EOSINOPHILS % (AUTO) 2.6 % (0.0-6.0); HEMATOCRIT 28 % (39-51); HEMOGLOBIN 9.1 g/dL (13.5-17.5); LYMPHOCYTES # (AUTO) 1.3 /CMM (0.8-4.8); LYMPHOCYTES % (AUTO) 11.6 % (20.0-44.0); MEAN CORPUSCULAR HEMOGLOBIN 29 PG (26.0-33.0); MEAN CORPUSCULAR HGB CONC 33 g/dl (31.0-36.0); MEAN CORPUSCULAR VOLUME 89 fL (80-96); MONOCYTES # (AUTO) 0.8 /CMM (0.1-1.30); MONOCYTES % (AUTO) 7.7 % (2.0-12.0); NEUTROPHILS # (AUTO) 8.5 /CMM (1.8-8.9); NEUTROPHILS % (AUTO) 77.8 % (43.0-81.0); PLATELET COUNT (AUTO) 675 /CMM (150-450); RDW COEFFICIENT OF VARIATION 16.6 (11.5-15.0); RED BLOOD CELL COUNT(AUTO) 3.13 MIL/uL (4.5-6.0)
--- NOTE | 2017-05-21 11:57 | NUR ---
RN NOTES PATIENT NOTED SITTING AT EDGE OF BED WITH LEGS DOWN AT THE SIDE OF THE BED, EDUCATED ON ELEVATING BLE TO RELIEVE CELLULITIS PT STATES "NO I CANT RIGHT NOW, IM WORKING ON THIS" PT NOTED ON LAPTOP WILL CONTINUE TO REINFORCE NURSING EDUCATION AND CONTINUE TO MONITOR
[2017-05-21] MEDS ORDERED: LIDOCAINE 1%-EPI 1:100,000 20 ML VIAL IJ ONE (13:00)
[2017-05-21] MEDS: HYDROCODONE/APAP 10/325MG 1 EA TABLET PO PRN ×2 (14:09→21:41)
--- NOTE | 2017-05-21 15:00 | NUR ---
RN NOTES PATIENT REFUSED TREATMENT BY RN, PT AWAITING DEBRIDEMENT BY TO HAVE DRESSING CHANGE OR TO BE DONE AT A LATER TIME WILL CONTINUE TO MONITOR Addendum: 05/21/17 at 1912 by KEZIA KRISHNAMURTHY RN Amended: Links added.
[2017-05-21 16:00] VITALS: BP 118/60
--- NOTE | 2017-05-21 17:15 | NUR ---
RN NOTES DR. MCHUGH CAME TO ATTEMPT DEBRIDEMENT PT SIGNED CONSENT, PT REFUSED AT THIS TIME, RISKS AND BENEFITS EXPLAINED BY MD CONTINUED TO STATE "NOT RIGHT NOW" WILL CONTINUE TO MONITOR AND REINFORCE EDUCATION
[2017-05-21] MEDS: DAKINS QUARTER STRENGTH (0.125%) 480 ML BOTTLE TOP SCH (18:16)
--- NOTE | 2017-05-21 19:30 | NUR ---
MS/RN NOTES RECEIVED PT. LYING IN BED. AWAKE, ALERT AND ORIENTED X4. BREATHING EVEN AND UNLABORED ON ROOM AIR. NO SOB, RESPIRATORY DISTRESS OR COMPLAINTS OF PAIN NOTED AT THIS TIME. PT. WITH LEFT UPPER ARM MIDLINE PRESENT, PATENT AND INTACT. PER DAYSHIFT NURSE PT. IS NONCOMPLIANT WITH WOUND CARE, WILL ATTEMPT TO PERFORM WOUND CARE ORDERED. PT. IS NONCOMPLIANT WITH ELEVATING BLE. BED LOCKED AND IN LOWEST POSITION, SIDE RAILS UP X2, CALL LIGHT WITHIN REACH, WILL CONTINUE TO MONITOR.
--- NOTE | 2017-05-21 19:40 | NUR ---
RN NOTES PATIENT AWAKE ALERT AND VERBALLY RESPONSIVE; RESPIRATIONS EVEN. NEEDS ATTENDED. PT CONTINUED ON PAIN MEDICATION PRN ORDERED SAFETY PRECAUTIONS AND COMFORT MEASURES IN PLACE. PT NON COMPLIANT WITH ELEVATING BLE AND WOUND TREATMENT WILL CONTINUE TO MONITOR AT THIS TIME AND ENDORSE TO NEXT SHIFT FOR CONTINUITY OF CARE,IV ACCESS PATENT AND INTACT NO REDNESS OR INFILTRATION NOTED AT THIS TIME
[2017-05-21 20:00] VITALS: BP 142/79
--- NOTE | 2017-05-21 20:30 | NUR ---
MS/RN NOTES PT. REFUSING DRESSING CHANGE AT THIS TIME. EDUCATED PT. ON IMPORTANCE OF WOUND CARE. PT. VERBALIZED UNDERSTANDING AND CONTINUES TO REFUSE. WILL ATTEMPT AGAIN AT A LATER TIME. PT. CONTINUES TO REFUSE TO ELEVATE BLE. WILL CONTINUE TO MONITOR.
[2017-05-21] MEDS: ATORVASTATIN 10 MG TABLET PO SCH (21:41)
[2017-05-21] MEDS: ARIPIPRAZOLE 5 MG TABLET PO SCH (21:41)
[2017-05-22] MEDS: PIPERACILLIN /TAZOBACTAM 3.375 G in IV D5W 50 ML IV SCH ×3 (00:39→11:18)
[2017-05-22] MEDS: MORPHINE SULFATE INJ 10 MG/ML DISP.SYRIN IV PRN ×3 (02:00→13:10)
--- NOTE | 2017-05-22 06:26 | NUR ---
MS/RN NOTES PT. IS LYING IN BED RESTING. BREATHING EVEN AND UNLABORED ON ROOM AIR. NO SOB, RESPIRATORY DISTRESS OR COMPLAINTS OF PAIN NOTED AT THIS TIME. PT. WITH LEFT UPPER ARM MIDLINE PRESENT, PATENT AND INTACT. PT. IS NONCOMPLIANT WITH WOUND CARE, PT. CONTINUES TO REFUSE DRESSING CHANGE. PT. STATES HE IS GOING FOR THE DEBRIDEMENT LATER TODAY. PT. REMAINS NONCOMPLIANT WITH ELEVATING BLE. EDUCATED PT. ON IMPORTANCE AND PT. CONTINUES TO BE NON-COMPLIANT. ALL PT. NEEDS MET. BED LOCKED AND IN LOWEST POSITION, SIDE RAILS UP X2, CALL LIGHT WITHIN REACH, WILL ENDORSE TO DAYSHIFT NURSE FOR CONTINUITY OF CARE.
--- NOTE | 2017-05-22 07:54 | NUR ---
RN MS NOTES PATIENT ALERT AND ORIENTED X3, BREATHING EVEN AND UNLABORED ON ROOM AIR. NO SOB, RESPIRATORY DISTRESS OR COMPLAINTS OF PAIN NOTED AT THIS TIME. PATIENT WITH LEFT UPPER ARM MIDLINE PRESENT, BLOOD DRAWN. PATIENT REQUESTED TO HAVE RLE IRRIGATED WITH NS, RE-EDUCATED PATIENT RE: WOUND CARE TREATMENT, AWAITING FOR WOUND DEBRIDEMENT TODAY WITH DR. MCHUGH. NEEDS ATTENDED AND ANTICIPATED, BED LOCKED AND IN LOWEST POSITION, SIDE RAILS UP X2, CALL LIGHT WITHIN REACH, WILL CONTINUE TO MONITOR.
[2017-05-22 07:55] LABS: EOSINOPHILS # (AUTO) 0.3 /CMM (0.0-0.7); EOSINOPHILS % (AUTO) 3.4 % (0.0-6.0); HEMATOCRIT 25 % (39-51); HEMOGLOBIN 8.2 g/dL (13.5-17.5); LYMPHOCYTES # (AUTO) 1.1 /CMM (0.8-4.8); LYMPHOCYTES % (AUTO) 10.7 % (20.0-44.0); MEAN CORPUSCULAR HEMOGLOBIN 29 PG (26.0-33.0); MEAN CORPUSCULAR HGB CONC 33 g/dl (31.0-36.0); MEAN CORPUSCULAR VOLUME 89 fL (80-96); MONOCYTES # (AUTO) 0.7 /CMM (0.1-1.30); MONOCYTES % (AUTO) 7.1 % (2.0-12.0); NEUTROPHILS % (AUTO) 78.8 % (43.0-81.0); PLATELET COUNT (AUTO) 618 /CMM (150-450); RDW COEFFICIENT OF VARIATION 16.3 (11.5-15.0); RED BLOOD CELL COUNT(AUTO) 2.84 MIL/uL (4.5-6.0); WHITE BLOOD COUNT (AUTO) 10.1 K/uL (4.3-11.0)
[2017-05-22 08:00] VITALS: BP 157/96
[2017-05-22 08:38] LABS: CALCIUM, SERUM 8.9 mg/dL (8.5-10.1); CREATININE 1.1 mg/dL (0.6-1.3); POTASSIUM 3.6 mmol/L (3.5-5.1)
[2017-05-22] MEDS: FUROSEMIDE 20 MG TABLET PO SCH (09:00)
[2017-05-22] MEDS: LISINOPRIL (5MG) 5 MG TABLET PO SCH (09:00)
[2017-05-22] MEDS: GABAPENTIN 300 MG CAPSULE PO SCH ×2 (09:00→11:27)
[2017-05-22] MEDS: ISOSORBIDE DINITRATE (10MG) 10 MG TABLET PO SCH (09:00)
[2017-05-22] MEDS: ASPIRIN EC 81 MG TABLET.DR PO SCH (09:16)
[2017-05-22] MEDS: PANTOPRAZOLE 40 MG TABLET.DR PO SCH (09:16)
[2017-05-22 09:17] VITALS: BP 157/96
[2017-05-22] MEDS: METOPROLOL TARTRATE 25 MG TABLET PO SCH (09:17)
[2017-05-22] MEDS: MULTIVITAMINS,THERAGRAN 1 UDTAB TABLET PO SCH (09:18)
[2017-05-22] MEDS: FERROUS SULFATE (325 MG) 325 MG/TAB TABLET PO SCH (09:18)
[2017-05-22] MEDS: GENTAMICIN 0.1% OINT 15 GM TUBE TP SCH (09:30)
[2017-05-22] MEDS: SILVER SULFADIAZINE CREAM 25 GM TUBE TP SCH (09:30)
[2017-05-22] MEDS: DAKINS QUARTER STRENGTH (0.125%) 480 ML BOTTLE TOP SCH (09:30)
--- NOTE | 2017-05-22 11:00 | NUR ---
RN MS NOTES PATIENT SEEN BY DR. MCHUGH, WOUND DEBRIDEMENT CANNOT BE COMPLETED, DUE TO AN ABD PAD BEING STUCK ON PATIENT'S LLE WOUND, DR. MCHUGH, APPLIED LIDOCAINE MEDICATIONS, IRRIGATED THE WOUND AND THE ABD PAD FOR ALMOST AN HOUR, PATIENT UNABLE TO TOLERATE REMOVAL OF ABD PAD DUE TO PAIN. RIGHT LE WOUND TREATMENT RENDERED. PER MD, HE CANNOT DO THE WOUND DEBRIDEMENT UNTIL THE ABD PAD COMES OFF.
[2017-05-22] MEDS ORDERED: LIDOCAINE 1% INJ 50 ML MDV IJ ONE (11:30)
[2017-05-22] MEDS ORDERED: LIDOCAINE 1%-EPI 1:100,000 20 ML VIAL IJ ONE (11:30)
[2017-05-22] MEDS ORDERED: AMOX500C2 PO (11:53)
[2017-05-22] MEDS ORDERED: GENT30CR TP (11:53)
[2017-05-22] MEDS ORDERED: LEVO500T15 PO (11:53)
--- NOTE | 2017-05-22 12:57 | NUR ---
RN MS NOTES RECEIVED ORDER FROM DR. KOWALSKI FOR DISCHARGE, EXPLAINED TO THE PATIENT, IF ABD PAD DOES NOT COME OFF, WOUND DEBRIDEMENT CANNOT BE DONE, THEREFORE THERE'S NO OTHER TREATMENT OR SERVICES CAN BE PROVIDED TO THE PATIENT, AND THAT THE MD, FEELS HE'S READY FOR DISCHARGE, DUE TO PATIENT'S NON-COMPLIANCE.
--- NOTE | 2017-05-22 13:43 | NUR ---
TAY and senior case manager Joel met with pt. bedside to discuss discharge plan since pt. has refused to have debridement that were scheduled for him. Pt. is non--compliant with his medical care. TAY inquired with pt. his where he would like to be discharged to. Pt. states he would like taxi transportation to [address] [place] [address], in [place]. Pt. has requested to give him an hour and a half to get his belongings together. SW informed PRISCILLA Navarrete and pt' RN Pennie regarding discharge plan. Pt. declined homeless longterm placement and resources.
--- NOTE | 2017-05-22 13:46 | NUR ---
RN MS NOTES ATTEMPTED MULTIPLE TIMES TO TRY TO REMOVE DRESSING FROM LLE, SOAKED WITH NS, STILL UNSUCCESFUL, DR. MCHUGH AND DR. KOWALSKI MADE AWARE. PATIENT REFUSES TO HAVE ANYBODY TOUCH THE DRESSING BECAUSE PATIENT IS AFRAID TO TEAR THE SKIN OFF, WAITING FOR DR. MCHUGH BUT PER DR. MCHUGH, HE STEPPED OUT OF THE BUILDING AND WILL TRY TO COME BACK. CASE MANAGEMENT AND SUPERVISOR CAPACITOR PROCESSING EXPLAINED TO THE PATIENT THE PLAN OF CARE INCLUDING THE DISCHARGE ORDER. PATIENT VERBALIZED UNDERSTANDING.
--- NOTE | 2017-05-22 15:27 | NUR ---
PIE CRUST MIXER NOTE PATIENT AGREED TO BE DISCHARGED, PER CENTRIFUGAL SCREEN TENDER AND AIRCRAFT STRUCTURAL REPAIRER, PATIENT RECEIVED DISCHARGE INSTRUCTIONS, GIVEN PRESCRIPTIONS AND INSTRUCTED ON MEDICATIONS ADMINISTRATION. PATIENT VERBALIZED UNDERSTANDING. RIGHT LE WOUND TREATMENT RENDERED, BUT FOR LEFT LE PATIENT REFUSED TO HAVE NURSES DO THE WOUND TREATMENT, PREFERS TO DO HIS OWN TREATMENT, ASSISTED WITH SUPPLIES. DORIS MIDLINE REMOVED, COVERED WITH GAUZE AND TAPE. SKIN ASSESSMENT COMPLETED, PATIENT REFUSED ANY PHOTOS, PER PATIENT, "I AM GOING TO BE DISCHARGE ANYWAY." BELONGINGS RECONCILIATION OFFERED, PATIENT REFUSED TO GO THROUGH ALL BELONGINGS, DISCHARGE PAPERWORKS SIGNED. TAXI WILL BE ARRANGED, WHEN THE PATIENT IS READY.
--- NOTE | 2017-05-22 16:08 | NUR ---
LAND CHECKER PATIENT LEFT THE FACILITY IN STABLE CONDITION VIA TAXI, BLE COVERED WITH DRESSING AND JORGE GAUZE, PER PATIENT'S REQUEST.
== END 2017-05-22 16:04 | disposition home or self-care (01) | DRG 383 ==
LOC: ER 19:11 → MED 22:59
PROVIDERS: ADMIT Family Medicine; ATTEND Family Medicine
PROC: 05H633Z Insertion of Infusion Device into Left Subclavian Vein, Percutaneous Approach (ICD-10-PCS; principal; 2017-05-18)
DX: L03.115 Cellulitis of right lower limb (principal); N17.0 Acute kidney failure with tubular necrosis; I11.0 Hypertensive heart disease with heart failure; E44.0 Moderate protein-calorie malnutrition; I50.32 Chronic diastolic (congestive) heart failure; Z68.42 Body mass index [BMI] 45.0-49.9, adult; L03.116 Cellulitis of left lower limb; I87.2 Venous insufficiency (chronic) (peripheral); Z85.72 Personal history of non-Hodgkin lymphomas; E66.01 Morbid (severe) obesity due to excess calories; I73.9 Peripheral vascular disease, unspecified; Z59.0 Homelessness; K21.9 Gastro-esophageal reflux disease without esophagitis; I10 Essential (primary) hypertension; Z91.018 Allergy to other foods; Z79.82 Long term (current) use of aspirin; Z79.899 Other long term (current) drug therapy; I89.0 Lymphedema, not elsewhere classified; I87.8 Other specified disorders of veins; Z91.19 Patient's noncompliance with other medical treatment and regimen; E78.5 Hyperlipidemia, unspecified; I25.10 Atherosclerotic heart disease of native coronary artery without angina pectoris; D63.8 Anemia in other chronic diseases classified elsewhere; L97.819 Non-pressure chronic ulcer of other part of right lower leg with unspecified severity; L97.829 Non-pressure chronic ulcer of other part of left lower leg with unspecified severity; B96.5 Pseudomonas (aeruginosa) (mallei) (pseudomallei) as the cause of diseases classified elsewhere; F31.9 Bipolar disorder, unspecified; Z98.890 Other specified postprocedural states; E78.1 Pure hyperglyceridemia; R73.03 Prediabetes
CPT/HCPCS: 36415; 36569; 73590-TC; 73620-TC; 80048-TC; 80061-TC; 80076-TC; 80202-TC; 83605-TC; 83735-TC; 84100-TC; 84484-TC; 85025-TC; 87040-TC; 87070-TC; 87186-TC; A4606; A6253; A6402; A6403; J1170; J2270; J2405; J2543; J3370; J3490; J7030; J7050; J7060; Z7610

== ENCOUNTER 2017-07-07 03:25 | Emergency (ER) | payer OTHER ==
[~2017-07-07] VITALS: Ht 182.9 cm; Wt 108.9 kg
[~2017-07-07 03:25] MED LIST changes: +AMOX500C2 PO; +GENT30CR TP
--- NOTE | 2017-07-07 03:36 | NUR ---
PT BIB SELF FROM STREET, PT C/O BILATERAL LEG WOUNDS. PT AOX3 RR EVEN AND UNLABORED. NO SOB NOTED. NAD NOTED. NO NDV AT THIS TIME. PT GOWNED AND PLACED ON MONITOR. PT NOT DIAPHORETIC. DR. LOU AT BEDSIDE FOR EVAL.
--- NOTE | 2017-07-07 03:41 | NUR ---
DR. LOU AT BEDSIDE FOR EVAL.
[2017-07-07 03:59] LABS: BASOPHILS % (AUTO) 0.3 % (0.0-2.0); EOSINOPHILS # (AUTO) 0.3 /CMM (0.0-0.7); EOSINOPHILS % (AUTO) 2.4 % (0.0-6.0); HEMATOCRIT 30 % (39-51); HEMOGLOBIN 9.4 g/dL (13.5-17.5); LYMPHOCYTES # (AUTO) 1.6 /CMM (0.8-4.8); LYMPHOCYTES % (AUTO) 13.2 % (20.0-44.0); MEAN CORPUSCULAR HEMOGLOBIN 25 PG (26.0-33.0); MEAN CORPUSCULAR HGB CONC 31 g/dl (31.0-36.0); MEAN CORPUSCULAR VOLUME 81 fL (80-96); MONOCYTES % (AUTO) 8.3 % (2.0-12.0); NEUTROPHILS # (AUTO) 9.4 /CMM (1.8-8.9); NEUTROPHILS % (AUTO) 75.8 % (43.0-81.0); PLATELET COUNT (AUTO) 785 /CMM (150-450); RDW COEFFICIENT OF VARIATION 17.1 (11.5-15.0); RED BLOOD CELL COUNT(AUTO) 3.74 MIL/uL (4.5-6.0); WHITE BLOOD COUNT (AUTO) 12.3 K/uL (4.3-11.0)
[2017-07-07 04:09] LABS: CALCIUM, SERUM 8.9 mg/dL (8.5-10.1); CREATININE 1.2 mg/dL (0.6-1.3); POTASSIUM 3.6 mmol/L (3.5-5.1)
[2017-07-07] MEDS ORDERED: AMOXICILLIN TRIHYDRATE 250 MG CAPSULE ONE (04:21)
[2017-07-07] MEDS ORDERED: LEVOFLOXACIN (750 MG) 750 MG TABLET ONE (04:22)
[2017-07-07] MEDS ORDERED: LEVOFLOXACIN (750 MG) 750 MG TABLET PO SCH (04:30)
[2017-07-07] MEDS ORDERED: AMOXICILLIN TRIHYDRATE 250 MG CAPSULE PO ONE (04:30)
[2017-07-07 05:03] VITALS: BP 158/84
--- NOTE | 2017-07-07 05:03 | NUR ---
Patient discharged to home in stable condition. Written and verbal after care instructions given. Patient verbalizes understanding of instruction. ambulatory with a steady gait
== END 2017-07-07 05:04 | disposition home or self-care (01) ==
LOC: ER 03:29
DX: L97.818 Non-pressure chronic ulcer of other part of right lower leg with other specified severity (principal); L03.115 Cellulitis of right lower limb; I10 Essential (primary) hypertension; K21.9 Gastro-esophageal reflux disease without esophagitis; Z90.89 Acquired absence of other organs; Z91.018 Allergy to other foods; Z79.82 Long term (current) use of aspirin
CPT/HCPCS: 36415; 80048; 85025; 99284; A4606; A6253; Z7610

== ENCOUNTER 2017-12-30 16:40 | Emergency (ER) | payer OTHER ==
[~2017-12-30] VITALS: Ht 172.7 cm; Wt 121.6 kg
[~2017-12-30 16:40] MED LIST changes: +ARIP5TAB10 PO; -ARIP5TAB4 PO; +ASPI-1152 PO; -ASPI-991 PO; -LEVO500T15 PO; +LEVO500T75 PO
--- NOTE | 2017-12-30 16:56 | NUR ---
[id number] FROM CLINIC: LOW BP AND BLE CELLULITIS. PATIENT IS AWAKE AND ALERT, APPEARS IN NO DISTRESS, RESPIRATION EVEN AND UNLABORED, SKIN IS WARM TO TOUCH AND NON DIAPHORETIC. PT IS AFEBRILE. VSS
[2017-12-30 17:31] LABS: BASOPHILS % (AUTO) 0.4 % (0.0-2.0); EOSINOPHILS % (AUTO) 1.6 % (0.0-6.0); HEMATOCRIT 36 % (39-51); HEMOGLOBIN 11.8 g/dL (13.5-17.5); LYMPHOCYTES % (AUTO) 19.9 % (20.0-44.0); MEAN CORPUSCULAR HGB CONC 33 g/dl (31.0-36.0); MEAN CORPUSCULAR VOLUME 88 fL (80-96); MONOCYTES % (AUTO) 9.7 % (2.0-12.0); NEUTROPHILS # (AUTO) 6.9 /CMM (1.8-8.9); NEUTROPHILS % (AUTO) 68.4 % (43.0-81.0); PLATELET COUNT (AUTO) 430 /CMM (150-450); RDW COEFFICIENT OF VARIATION 18.3 (11.5-15.0); RED BLOOD CELL COUNT(AUTO) 4.03 MIL/uL (4.5-6.0); WHITE BLOOD COUNT (AUTO) 10.2 K/uL (4.3-11.0)
[2017-12-30 17:42] LABS: CALCIUM, SERUM 8.7 mg/dL (8.5-10.1); CARBON DIOXIDE 30 mmol/L (21-32); CHLORIDE 103 mmol/L (98-107); CREATININE 1.8 mg/dL (0.6-1.3); GLUCOSE 115 mg/dL (74-106); POTASSIUM 3.4 mmol/L (3.5-5.1); SODIUM SERUM 141 mmol/L (136-145); UREA NITROGEN, BLOOD 33 mg/dL (7-18)
--- NOTE | 2017-12-30 17:50 | NUR ---
IV removed. Catheter intact and site benign. Pressure and 4x4 applied to site. No bleeding noted.
[2017-12-30 17:51] LABS: TROPONIN I < 0.017 ng/mL (0.00-0.056)
[2017-12-30 17:56] LABS: INR 0.94 (0.87-1.13)
[2017-12-30 17:59] LABS: B-TYPE NATRIURETIC PEPTIDE 338 PG/ML (0-125)
[2017-12-30] MEDS ORDERED: IV NS 0.9% 1,000 ML BAG IV ONE (18:00)
--- NOTE | 2017-12-30 18:34 | NUR ---
Patient discharged to home in stable condition. Written and verbal after care instructions given. Patient verbalizes understanding of instruction.
[2017-12-30 18:35] VITALS: BP 128/64
== END 2017-12-30 18:37 | disposition home or self-care (01) ==
LOC: ER 16:47
DX: I95.89 Other hypotension (principal); K21.9 Gastro-esophageal reflux disease without esophagitis; I10 Essential (primary) hypertension; Z90.89 Acquired absence of other organs; Z91.018 Allergy to other foods; Z59.0 Homelessness; Z79.899 Other long term (current) drug therapy
CPT/HCPCS: 36415; 71045; 80048; 83880; 84484; 85025; 85730; 93005; 96360; 99285; A4606; Z7610

== ENCOUNTER 2018-07-14 01:45 | Inpatient (IN) | payer OTHER ==
[~2018-07-14] VITALS: Ht 170.2 cm; Wt 115.2 kg
[~2018-07-14 01:45] MED LIST changes: +GABA600T12 PO; -GABA600T2 PO; +HYDR-4354 PO; -HYDR-548 PO
[2018-07-14] MEDS: ONDANSETRON HCL/PF 4 MG/2 ML VIAL IVP ONE ×2 (02:43→03:05)
[2018-07-14] MEDS: VANCOMYCIN 1 GM in IV D5W 250 ML IV ONE ×2 (02:45→03:05)
[2018-07-14] MEDS: MORPHINE SULFATE INJ 2 MG/ML DISP.SYRIN IV ONE ×2 (02:45→03:07)
[2018-07-14] MEDS ORDERED: ONDANSETRON HCL/PF 4 MG/2 ML VIAL ONE (02:56)
[2018-07-14] MEDS ORDERED: MORPHINE SULFATE INJ 4 MG/ML DISP.SYRIN ONE (02:56)
[2018-07-14] MEDS ORDERED: VANCOMYCIN 1 GM VIAL ONE (02:56)
[2018-07-14 02:58] LABS: BASOPHILS # (AUTO) 0.1 /CMM (0.0-0.2); BASOPHILS % (AUTO) 0.5 % (0.0-2.0); EOSINOPHILS % (AUTO) 2.6 % (0.0-6.0); HEMATOCRIT 36 % (39-51); HEMOGLOBIN 11.8 g/dL (13.5-17.5); LYMPHOCYTES # (AUTO) 1.7 /CMM (0.8-4.8); LYMPHOCYTES % (AUTO) 16.1 % (20.0-44.0); MEAN CORPUSCULAR HGB CONC 33 g/dl (31.0-36.0); MEAN CORPUSCULAR VOLUME 91 fL (80-96); MONOCYTES # (AUTO) 0.8 /CMM (0.1-1.30); MONOCYTES % (AUTO) 7.7 % (2.0-12.0); NEUTROPHILS # (AUTO) 7.8 /CMM (1.8-8.9); NEUTROPHILS % (AUTO) 73.1 % (43.0-81.0); PLATELET COUNT (AUTO) 424 /CMM (150-450); RED BLOOD CELL COUNT(AUTO) 3.96 MIL/uL (4.5-6.0); WHITE BLOOD COUNT (AUTO) 10.7 K/uL (4.3-11.0)
[2018-07-14 03:07] LABS: CALCIUM, SERUM 8.6 mg/dL (8.5-10.1); CREATININE 1.5 mg/dL (0.6-1.3); POTASSIUM 3.8 mmol/L (3.5-5.1)
[2018-07-14] MEDS ORDERED: MAG HYDROX/AL HYDROX/SIMETH 30 ML UDC PO PRN (04:00)
[2018-07-14] MEDS ORDERED: Z GUARD REMEDY 2 OZ OINT TP PRN (04:00)
[2018-07-14] MEDS ORDERED: MORPHINE SULFATE INJ 2 MG/ML DISP.SYRIN IM PRN (04:00)
[2018-07-14] MEDS ORDERED: VANCOMYCIN 1 GM in IV D5W 250 ML IV SCH (04:00)
[2018-07-14] MEDS ORDERED: ACETAMINOPHEN 325 MG TABLET PO PRN (04:00)
[2018-07-14] MEDS ORDERED: ZOLPIDEM TARTRATE 5 MG TABLET PO PRN (04:00)
[2018-07-14] MEDS ORDERED: ONDANSETRON HCL/PF 4 MG/2 ML VIAL IVP PRN (04:00)
[2018-07-14 04:30] VITALS: BP 158/92
[2018-07-14] MEDS ORDERED: ZOSYN IVPB 3.375 G in IV D5W 50ml IV ONE (04:30)
[2018-07-14] MEDS: HYDROCODONE/APAP 5/325MG 1 EACH TABLET PO PRN ×2 (04:32→08:31)
[2018-07-14] MEDS ORDERED: PIPERACILLIN /TAZOBACTAM 4.5 G in IV D5W 50 ML IV SCH (06:00)
[2018-07-14] MEDS ORDERED: PIPERACILLIN /TAZOBACTAM 3.375 G VIAL IV ONE (06:49)
[2018-07-14 08:00] VITALS: BP 159/80
[2018-07-14] MEDS ORDERED: FEE PK DOSING 1 MIN EA MC ONE (08:30)
[2018-07-14] MEDS ORDERED: FERR325T28 PO (09:05)
[2018-07-14] MEDS ORDERED: ARIP5TAB20 PO (09:05)
[2018-07-14] MEDS ORDERED: ATOR10TA PO (09:05)
[2018-07-14] MEDS ORDERED: PANT40TA2 PO (09:05)
[2018-07-14] MEDS ORDERED: ASPI-1169 PO (09:05)
[2018-07-14] MEDS: PIPERACILLIN /TAZOBACTAM 3.375 G in IV D5W 100 ML IV SCH ×2 (09:39→17:23)
[2018-07-14] MEDS: ENOXAPARIN SODIUM 40 MG/0.4 ML DISP.SYRIN SQ SCH (09:42)
[2018-07-14] MEDS: MORPHINE SULFATE INJ 4 MG/ML DISP.SYRIN IV PRN ×4 (11:24→21:05)
[2018-07-14] MEDS ORDERED: BUMETANIDE INJ 6 MG in IV NS 0.9% 36 ML IV ONE (14:00)
[2018-07-14 16:00] VITALS: BP 146/83
[2018-07-14 20:30] VITALS: BP 141/73
[2018-07-14] MEDS ORDERED: VANCOMYCIN 1.25 GM in IV D5W 500 ML IV SCH (21:00)
[2018-07-15] MEDS: PIPERACILLIN /TAZOBACTAM 3.375 G in IV D5W 100 ML IV SCH ×3 (00:55→17:27)
[2018-07-15] MEDS: MORPHINE SULFATE INJ 4 MG/ML DISP.SYRIN IV PRN ×7 (02:34→23:27)
[2018-07-15 06:27] LABS: BASOPHILS # (AUTO) 0.1 /CMM (0.0-0.2); BASOPHILS % (AUTO) 0.5 % (0.0-2.0); EOSINOPHILS % (AUTO) 0.9 % (0.0-6.0); HEMATOCRIT 37 % (39-51); LYMPHOCYTES # (AUTO) 1.3 /CMM (0.8-4.8); LYMPHOCYTES % (AUTO) 9.8 % (20.0-44.0); MEAN CORPUSCULAR HGB CONC 32 g/dl (31.0-36.0); MEAN CORPUSCULAR VOLUME 90 fL (80-96); MONOCYTES # (AUTO) 1.1 /CMM (0.1-1.30); MONOCYTES % (AUTO) 8.5 % (2.0-12.0); NEUTROPHILS # (AUTO) 10.3 /CMM (1.8-8.9); NEUTROPHILS % (AUTO) 80.3 % (43.0-81.0); PLATELET COUNT (AUTO) 467 /CMM (150-450); RED BLOOD CELL COUNT(AUTO) 4.09 MIL/uL (4.5-6.0); WHITE BLOOD COUNT (AUTO) 12.9 K/uL (4.3-11.0)
[2018-07-15 07:00] LABS: CALCIUM, SERUM 8.6 mg/dL (8.5-10.1); CREATININE 1.1 mg/dL (0.6-1.3); MAGNESIUM 2.1 mg/dL (1.8-2.4); POTASSIUM 3.6 mmol/L (3.5-5.1)
[2018-07-15 08:00] VITALS: BP 116/60
[2018-07-15] MEDS: ENOXAPARIN SODIUM 40 MG/0.4 ML DISP.SYRIN SQ SCH (10:37)
[2018-07-15] MEDS: FUROSEMIDE 40 MG/4 ML VIAL IV SCH ×2 (14:23→17:27)
[2018-07-15] MEDS: DAKINS QUARTER STRENGTH (0.125%) 480 ML BOTTLE TOP SCH (14:24)
[2018-07-15 16:00] VITALS: BP 134/76
[2018-07-15] MEDS: VANCOMYCIN 1.25 GM in IV D5W 500 ML IV SCH (16:31)
[2018-07-15] MEDS: LACTOBACILLUS RHAMNOSUS GG 1 EACH CAP.SPRINK PO SCH (17:27)
[2018-07-15 20:00] VITALS: BP 128/77
[2018-07-15] MEDS: NITROGLYCERIN 0.4 MG/TAB BOTTLE SL PRN (20:30)
[2018-07-15] MEDS ORDERED: ASPIRIN 325 MG TABLET PO ONE (21:00)
[2018-07-16] MEDS: PIPERACILLIN /TAZOBACTAM 3.375 G in IV D5W 100 ML IV SCH ×3 (01:07→18:42)
[2018-07-16] MEDS: NITROGLYCERIN 0.4 MG/TAB BOTTLE SL PRN (01:20)
[2018-07-16] MEDS: MORPHINE SULFATE INJ 4 MG/ML DISP.SYRIN IV PRN ×2 (02:29→06:58)
[2018-07-16 04:00] VITALS: BP 126/70
[2018-07-16] MEDS: VANCOMYCIN 1.25 GM in IV D5W 500 ML IV SCH ×2 (05:39→17:43)
[2018-07-16 08:00] VITALS: BP 119/66
[2018-07-16 08:41] LABS: CALCIUM, SERUM 8.7 mg/dL (8.5-10.1); POTASSIUM 3.6 mmol/L (3.5-5.1)
[2018-07-16] MEDS: LACTOBACILLUS RHAMNOSUS GG 1 EACH CAP.SPRINK PO SCH ×2 (09:08→17:43)
[2018-07-16] MEDS: DAKINS QUARTER STRENGTH (0.125%) 480 ML BOTTLE TOP SCH (09:21)
[2018-07-16] MEDS: ENOXAPARIN SODIUM 40 MG/0.4 ML DISP.SYRIN SQ SCH (09:37)
[2018-07-16] MEDS: FUROSEMIDE 40 MG/4 ML VIAL IV SCH ×3 (10:31→17:43)
[2018-07-16 11:19] LABS: BASOPHILS # (AUTO) 0.1 /CMM (0.0-0.2); BASOPHILS % (AUTO) 0.5 % (0.0-2.0); EOSINOPHILS % (AUTO) 0.9 % (0.0-6.0); HEMATOCRIT 34 % (39-51); HEMOGLOBIN 11.2 g/dL (13.5-17.5); LYMPHOCYTES % (AUTO) 9.3 % (20.0-44.0); MEAN CORPUSCULAR HGB CONC 33 g/dl (31.0-36.0); MEAN CORPUSCULAR VOLUME 90 fL (80-96); MONOCYTES # (AUTO) 0.8 /CMM (0.1-1.30); MONOCYTES % (AUTO) 7.7 % (2.0-12.0); NEUTROPHILS # (AUTO) 8.7 /CMM (1.8-8.9); NEUTROPHILS % (AUTO) 81.6 % (43.0-81.0); PLATELET COUNT (AUTO) 436 /CMM (150-450); RED BLOOD CELL COUNT(AUTO) 3.78 MIL/uL (4.5-6.0); WHITE BLOOD COUNT (AUTO) 10.7 K/uL (4.3-11.0)
[2018-07-16] MEDS ORDERED: HYDROMORPHONE INJ 0.5 MG/0.5 ML SYRINGE IV PRN (11:30)
[2018-07-16 12:00] VITALS: BP 122/68
[2018-07-16] MEDS: HYDROCODONE/APAP 10/325MG 1 EA TABLET PO PRN ×2 (12:30→18:45)
[2018-07-16] MEDS: HYDROMORPHONE 1 MG/1 ML DISP.SYRIN IV PRN ×2 (15:29→23:26)
[2018-07-16 16:00] VITALS: BP 146/74
[2018-07-16 20:00] VITALS: BP 146/77
[2018-07-16] MEDS: MAGNESIUM HYDROXIDE 30 ML UDC PO PRN (23:18)
[2018-07-17] MEDS: VANCOMYCIN 1.25 GM in IV D5W 500 ML IV SCH ×2 (00:57→09:21)
[2018-07-17] MEDS: PIPERACILLIN /TAZOBACTAM 3.375 G in IV D5W 100 ML IV SCH (01:00)
[2018-07-17] MEDS: HYDROCODONE/APAP 10/325MG 1 EA TABLET PO PRN ×3 (01:08→20:52)
[2018-07-17] MEDS: HYDROMORPHONE 1 MG/1 ML DISP.SYRIN IV PRN ×2 (03:10→06:15)
[2018-07-17 04:00] VITALS: BP 134/71
[2018-07-17 08:00] VITALS: BP_SYST 113; BP_SYST 118; BP_DIAS 81
[2018-07-17] MEDS: LACTOBACILLUS RHAMNOSUS GG 1 EACH CAP.SPRINK PO SCH ×2 (08:32→17:00)
[2018-07-17] MEDS: ENOXAPARIN SODIUM 40 MG/0.4 ML DISP.SYRIN SQ SCH (08:32)
[2018-07-17] MEDS: FUROSEMIDE 40 MG/4 ML VIAL IV SCH ×3 (08:33→17:00)
[2018-07-17] MEDS: DAKINS QUARTER STRENGTH (0.125%) 480 ML BOTTLE TOP SCH (08:33)
[2018-07-17 08:58] LABS: BASOPHILS % (AUTO) 0.5 % (0.0-2.0); EOSINOPHILS % (AUTO) 1.5 % (0.0-6.0); HEMATOCRIT 33 % (39-51); HEMOGLOBIN 10.8 g/dL (13.5-17.5); LYMPHOCYTES # (AUTO) 1.1 /CMM (0.8-4.8); LYMPHOCYTES % (AUTO) 12.2 % (20.0-44.0); MEAN CORPUSCULAR HGB CONC 33 g/dl (31.0-36.0); MEAN CORPUSCULAR VOLUME 90 fL (80-96); MONOCYTES # (AUTO) 0.9 /CMM (0.1-1.30); MONOCYTES % (AUTO) 9.5 % (2.0-12.0); NEUTROPHILS # (AUTO) 6.9 /CMM (1.8-8.9); NEUTROPHILS % (AUTO) 76.3 % (43.0-81.0); PLATELET COUNT (AUTO) 482 /CMM (150-450); RED BLOOD CELL COUNT(AUTO) 3.64 MIL/uL (4.5-6.0); WHITE BLOOD COUNT (AUTO) 9.1 K/uL (4.3-11.0)
[2018-07-17 09:10] LABS: CALCIUM, SERUM 8.7 mg/dL (8.5-10.1); CREATININE 1.2 mg/dL (0.6-1.3); POTASSIUM 3.4 mmol/L (3.5-5.1)
[2018-07-17] MEDS: HYDROCODONE/APAP 5/325MG 1 EACH TABLET PO PRN (15:09)
[2018-07-17 16:00] VITALS: BP 149/73
[2018-07-17 20:00] VITALS: BP 122/61
[2018-07-17] MEDS ORDERED: CEFEPIME 1 GM in IV D5W 50 ML IV SCH (20:00)
[2018-07-17] MEDS: CLINDAMYCIN HCL 150 MG CAPSULE PO SCH (20:52)
[2018-07-18] MEDS: HYDROMORPHONE 1 MG/1 ML DISP.SYRIN IV PRN ×4 (00:38→22:32)
[2018-07-18] MEDS: HYDROCODONE/APAP 10/325MG 1 EA TABLET PO PRN ×3 (02:52→17:15)
[2018-07-18 04:00] VITALS: BP 125/73
[2018-07-18] MEDS: CLINDAMYCIN HCL 150 MG CAPSULE PO SCH ×3 (04:41→20:24)
[2018-07-18 07:43] VITALS: BP 129/65
[2018-07-18] MEDS: ENOXAPARIN SODIUM 40 MG/0.4 ML DISP.SYRIN SQ SCH (08:07)
[2018-07-18] MEDS: LACTOBACILLUS RHAMNOSUS GG 1 EACH CAP.SPRINK PO SCH ×2 (08:07→17:14)
[2018-07-18] MEDS: FUROSEMIDE 40 MG/4 ML VIAL IV SCH ×3 (08:07→17:00)
[2018-07-18] MEDS: DAKINS QUARTER STRENGTH (0.125%) 480 ML BOTTLE TOP SCH (08:40)
[2018-07-18 10:21] LABS: BASOPHILS # (AUTO) 0.1 /CMM (0.0-0.2); BASOPHILS % (AUTO) 0.8 % (0.0-2.0); EOSINOPHILS % (AUTO) 2.9 % (0.0-6.0); HEMATOCRIT 35 % (39-51); HEMOGLOBIN 11.4 g/dL (13.5-17.5); LYMPHOCYTES # (AUTO) 0.9 /CMM (0.8-4.8); MEAN CORPUSCULAR HGB CONC 33 g/dl (31.0-36.0); MEAN CORPUSCULAR VOLUME 90 fL (80-96); MONOCYTES # (AUTO) 0.7 /CMM (0.1-1.30); MONOCYTES % (AUTO) 8.3 % (2.0-12.0); NEUTROPHILS # (AUTO) 6.5 /CMM (1.8-8.9); PLATELET COUNT (AUTO) 486 /CMM (150-450); RED BLOOD CELL COUNT(AUTO) 3.85 MIL/uL (4.5-6.0); WHITE BLOOD COUNT (AUTO) 8.4 K/uL (4.3-11.0)
[2018-07-18 10:29] LABS: CREATININE 1.1 mg/dL (0.6-1.3); POTASSIUM 2.9 mmol/L (3.5-5.1)
[2018-07-18 11:13] VITALS: BP 146/69
[2018-07-18] MEDS ORDERED: POTASSIUM CHLORIDE 20 MEQ TAB.PRT.SR PO ONE (11:30)
[2018-07-18 12:00] VITALS: BP 146/69
[2018-07-18 15:36] VITALS: BP 139/83
[2018-07-18 20:00] VITALS: BP 132/77
[2018-07-18] MEDS: HYDROCODONE/APAP 5/325MG 1 EACH TABLET PO PRN (20:25)
[2018-07-18] MEDS: ARIPIPRAZOLE 5 MG TABLET PO SCH (21:27)
[2018-07-19] MEDS: HYDROCODONE/APAP 5/325MG 1 EACH TABLET PO PRN (03:44)
[2018-07-19 04:00] VITALS: BP 150/80
[2018-07-19] MEDS: CLINDAMYCIN HCL 150 MG CAPSULE PO SCH ×3 (05:00→21:03)
[2018-07-19] MEDS: HYDROMORPHONE 1 MG/1 ML DISP.SYRIN IV PRN ×5 (05:37→23:59)
[2018-07-19 07:35] LABS: BASOPHILS # (AUTO) 0.1 /CMM (0.0-0.2); BASOPHILS % (AUTO) 0.6 % (0.0-2.0); EOSINOPHILS % (AUTO) 2.7 % (0.0-6.0); HEMATOCRIT 35 % (39-51); HEMOGLOBIN 11.6 g/dL (13.5-17.5); LYMPHOCYTES # (AUTO) 1.4 /CMM (0.8-4.8); LYMPHOCYTES % (AUTO) 14.1 % (20.0-44.0); MEAN CORPUSCULAR HGB CONC 33 g/dl (31.0-36.0); MEAN CORPUSCULAR VOLUME 90 fL (80-96); MONOCYTES # (AUTO) 0.8 /CMM (0.1-1.30); MONOCYTES % (AUTO) 8.1 % (2.0-12.0); NEUTROPHILS # (AUTO) 7.3 /CMM (1.8-8.9); NEUTROPHILS % (AUTO) 74.5 % (43.0-81.0); PLATELET COUNT (AUTO) 524 /CMM (150-450); RED BLOOD CELL COUNT(AUTO) 3.91 MIL/uL (4.5-6.0); WHITE BLOOD COUNT (AUTO) 9.8 K/uL (4.3-11.0)
[2018-07-19 07:58] LABS: CALCIUM, SERUM 9.3 mg/dL (8.5-10.1); CREATININE 1.1 mg/dL (0.6-1.3); POTASSIUM 3.7 mmol/L (3.5-5.1)
[2018-07-19 08:00] VITALS: BP 148/84
[2018-07-19] MEDS: FUROSEMIDE 40 MG/4 ML VIAL IV SCH ×3 (09:07→17:39)
[2018-07-19] MEDS: LACTOBACILLUS RHAMNOSUS GG 1 EACH CAP.SPRINK PO SCH ×2 (09:07→17:39)
[2018-07-19] MEDS: ENOXAPARIN SODIUM 40 MG/0.4 ML DISP.SYRIN SQ SCH (09:07)
[2018-07-19] MEDS: DAKINS QUARTER STRENGTH (0.125%) 480 ML BOTTLE TOP SCH (09:09)
[2018-07-19] MEDS: MAGNESIUM HYDROXIDE 30 ML UDC PO PRN (11:30)
[2018-07-19] MEDS: HYDROCODONE/APAP 10/325MG 1 EA TABLET PO PRN ×2 (14:29→21:07)
[2018-07-19 16:00] VITALS: BP 140/82
[2018-07-19 20:00] VITALS: BP 131/82
[2018-07-19] MEDS: ARIPIPRAZOLE 5 MG TABLET PO SCH (21:03)
[2018-07-20 04:00] VITALS: BP 148/78
[2018-07-20] MEDS: CLINDAMYCIN HCL 150 MG CAPSULE PO SCH ×3 (04:24→20:45)
[2018-07-20] MEDS: HYDROMORPHONE 1 MG/1 ML DISP.SYRIN IV PRN ×6 (04:24→23:57)
[2018-07-20] MEDS ORDERED: CEFEPIME 1 GM VIAL ONE (05:06)
[2018-07-20] MEDS: CEFEPIME 1 GM in IV D5W 50 ML IV SCH ×3 (05:25→20:45)
[2018-07-20 07:26] LABS: CALCIUM, SERUM 8.2 mg/dL (8.5-10.1); CREATININE 1.2 mg/dL (0.6-1.3); POTASSIUM 3.4 mmol/L (3.5-5.1)
[2018-07-20 08:00] VITALS: BP 114/68
[2018-07-20 09:01] LABS: BASOPHILS # (AUTO) 0.1 /CMM (0.0-0.2); BASOPHILS % (AUTO) 0.6 % (0.0-2.0); EOSINOPHILS % (AUTO) 2.1 % (0.0-6.0); HEMATOCRIT 36 % (39-51); HEMOGLOBIN 11.9 g/dL (13.5-17.5); LYMPHOCYTES # (AUTO) 1.8 /CMM (0.8-4.8); LYMPHOCYTES % (AUTO) 15.4 % (20.0-44.0); MEAN CORPUSCULAR HGB CONC 33 g/dl (31.0-36.0); MEAN CORPUSCULAR VOLUME 90 fL (80-96); MONOCYTES # (AUTO) 0.8 /CMM (0.1-1.30); MONOCYTES % (AUTO) 7.1 % (2.0-12.0); NEUTROPHILS # (AUTO) 8.6 /CMM (1.8-8.9); NEUTROPHILS % (AUTO) 74.8 % (43.0-81.0); PLATELET COUNT (AUTO) 558 /CMM (150-450); RED BLOOD CELL COUNT(AUTO) 4.03 MIL/uL (4.5-6.0); WHITE BLOOD COUNT (AUTO) 11.5 K/uL (4.3-11.0)
[2018-07-20] MEDS: LACTOBACILLUS RHAMNOSUS GG 1 EACH CAP.SPRINK PO SCH ×2 (09:02→17:17)
[2018-07-20] MEDS: FUROSEMIDE 40 MG/4 ML VIAL IV SCH (09:02)
[2018-07-20] MEDS: ENOXAPARIN SODIUM 40 MG/0.4 ML DISP.SYRIN SQ SCH (09:04)
[2018-07-20] MEDS: DAKINS QUARTER STRENGTH (0.125%) 480 ML BOTTLE TOP SCH (09:10)
[2018-07-20] MEDS ORDERED: POTASSIUM CHLORIDE 20 MEQ TAB.PRT.SR PO SCH (10:00)
[2018-07-20 12:00] VITALS: BP 120/72
[2018-07-20] MEDS: MULTIVITAMINS,THERAGRAN 1 UDTAB TABLET PO SCH (12:27)
[2018-07-20] MEDS: FUROSEMIDE 40 MG TABLET PO SCH (12:55)
[2018-07-20] MEDS: HYDROCODONE/APAP 10/325MG 1 EA TABLET PO PRN ×2 (15:09→21:41)
[2018-07-20 16:00] VITALS: BP 134/84
[2018-07-20 20:00] VITALS: BP 141/78
[2018-07-20] MEDS: ARIPIPRAZOLE 5 MG TABLET PO SCH (21:36)
[2018-07-21] MEDS: HYDROMORPHONE 1 MG/1 ML DISP.SYRIN IV PRN ×5 (03:12→21:42)
[2018-07-21 04:00] VITALS: BP 133/77
[2018-07-21] MEDS: CLINDAMYCIN HCL 150 MG CAPSULE PO SCH ×3 (05:25→21:06)
[2018-07-21] MEDS: CEFEPIME 1 GM in IV D5W 50 ML IV SCH ×3 (05:25→21:05)
[2018-07-21] MEDS: HYDROCODONE/APAP 10/325MG 1 EA TABLET PO PRN ×3 (05:34→19:56)
[2018-07-21 06:20] LABS: BASOPHILS # (AUTO) 0.1 /CMM (0.0-0.2); BASOPHILS % (AUTO) 0.8 % (0.0-2.0); EOSINOPHILS % (AUTO) 1.7 % (0.0-6.0); HEMATOCRIT 38 % (39-51); HEMOGLOBIN 12.4 g/dL (13.5-17.5); LYMPHOCYTES # (AUTO) 1.9 /CMM (0.8-4.8); LYMPHOCYTES % (AUTO) 15.6 % (20.0-44.0); MEAN CORPUSCULAR HGB CONC 33 g/dl (31.0-36.0); MEAN CORPUSCULAR VOLUME 90 fL (80-96); MONOCYTES # (AUTO) 0.9 /CMM (0.1-1.30); MONOCYTES % (AUTO) 7.6 % (2.0-12.0); NEUTROPHILS # (AUTO) 9.3 /CMM (1.8-8.9); NEUTROPHILS % (AUTO) 74.3 % (43.0-81.0); PLATELET COUNT (AUTO) 528 /CMM (150-450); RED BLOOD CELL COUNT(AUTO) 4.19 MIL/uL (4.5-6.0); WHITE BLOOD COUNT (AUTO) 12.5 K/uL (4.3-11.0)
[2018-07-21 06:52] LABS: CALCIUM, SERUM 8.9 mg/dL (8.5-10.1); CREATININE 1.3 mg/dL (0.6-1.3); POTASSIUM 3.5 mmol/L (3.5-5.1)
[2018-07-21 08:00] VITALS: BP 116/63
[2018-07-21] MEDS: FUROSEMIDE 40 MG TABLET PO SCH (08:33)
[2018-07-21] MEDS: MULTIVITAMINS,THERAGRAN 1 UDTAB TABLET PO SCH (08:33)
[2018-07-21] MEDS: LACTOBACILLUS RHAMNOSUS GG 1 EACH CAP.SPRINK PO SCH ×2 (08:33→17:01)
[2018-07-21] MEDS: ENOXAPARIN SODIUM 40 MG/0.4 ML DISP.SYRIN SQ SCH (08:42)
[2018-07-21] MEDS: DAKINS QUARTER STRENGTH (0.125%) 480 ML BOTTLE TOP SCH (15:37)
[2018-07-21 16:00] VITALS: BP_SYST 108; BP_SYST 139; BP_DIAS 55; BP_DIAS 83
[2018-07-21] MEDS: MAGNESIUM HYDROXIDE 30 ML UDC PO PRN (19:56)
[2018-07-21 20:00] VITALS: BP 113/60
[2018-07-21] MEDS: ARIPIPRAZOLE 5 MG TABLET PO SCH (21:06)
[2018-07-21 22:00] VITALS: BP 113/60
[2018-07-22] MEDS: HYDROMORPHONE 1 MG/1 ML DISP.SYRIN IV PRN ×5 (02:51→20:50)
[2018-07-22] MEDS: CEFEPIME 1 GM in IV D5W 50 ML IV SCH ×3 (04:57→20:13)
[2018-07-22] MEDS: HYDROCODONE/APAP 10/325MG 1 EA TABLET PO PRN ×2 (05:01→19:42)
[2018-07-22] MEDS: CLINDAMYCIN HCL 150 MG CAPSULE PO SCH ×3 (05:01→20:13)
[2018-07-22 06:06] VITALS: BP 139/91
[2018-07-22 07:18] LABS: BASOPHILS # (AUTO) 0.2 /CMM (0.0-0.2); BASOPHILS % (AUTO) 1.3 % (0.0-2.0); EOSINOPHILS % (AUTO) 2.6 % (0.0-6.0); HEMATOCRIT 41 % (39-51); HEMOGLOBIN 13.5 g/dL (13.5-17.5); LYMPHOCYTES # (AUTO) 2.3 /CMM (0.8-4.8); MEAN CORPUSCULAR HGB CONC 33 g/dl (31.0-36.0); MEAN CORPUSCULAR VOLUME 90 fL (80-96); MONOCYTES # (AUTO) 1.2 /CMM (0.1-1.30); MONOCYTES % (AUTO) 7.9 % (2.0-12.0); NEUTROPHILS # (AUTO) 10.6 /CMM (1.8-8.9); NEUTROPHILS % (AUTO) 72.2 % (43.0-81.0); PLATELET COUNT (AUTO) 628 /CMM (150-450); RED BLOOD CELL COUNT(AUTO) 4.56 MIL/uL (4.5-6.0); WHITE BLOOD COUNT (AUTO) 14.6 K/uL (4.3-11.0)
[2018-07-22 08:00] VITALS: BP 138/75
[2018-07-22 08:15] LABS: CALCIUM, SERUM 9.1 mg/dL (8.5-10.1); CREATININE 1.1 mg/dL (0.6-1.3); POTASSIUM 3.8 mmol/L (3.5-5.1)
[2018-07-22] MEDS: MULTIVITAMINS,THERAGRAN 1 UDTAB TABLET PO SCH (09:58)
[2018-07-22] MEDS: FUROSEMIDE 40 MG TABLET PO SCH (09:58)
[2018-07-22] MEDS: LACTOBACILLUS RHAMNOSUS GG 1 EACH CAP.SPRINK PO SCH ×2 (09:58→16:56)
[2018-07-22] MEDS: HYDROCODONE/APAP 5/325MG 1 EACH TABLET PO PRN (09:59)
[2018-07-22] MEDS: ENOXAPARIN SODIUM 40 MG/0.4 ML DISP.SYRIN SQ SCH (10:06)
[2018-07-22 16:00] VITALS: BP_SYST 108; BP_SYST 135; BP_DIAS 47; BP_DIAS 66
[2018-07-22] MEDS: DAKINS QUARTER STRENGTH (0.125%) 480 ML BOTTLE TOP SCH (16:26)
[2018-07-22 20:00] VITALS: BP 124/70
[2018-07-22] MEDS ORDERED: HYDROMORPHONE INJ 0.5 MG/0.5 ML SYRINGE ONE (20:45)
[2018-07-22] MEDS: ARIPIPRAZOLE 5 MG TABLET PO SCH (21:08)
[2018-07-22] MEDS: MAGNESIUM HYDROXIDE 30 ML UDC PO PRN (21:14)
[2018-07-23] MEDS: HYDROMORPHONE INJ 2 MG/ML DISP.SYRIN IV PRN ×6 (00:21→23:37)
[2018-07-23] MEDS: HYDROCODONE/APAP 10/325MG 1 EA TABLET PO PRN ×3 (02:21→19:40)
[2018-07-23 04:00] VITALS: BP 115/72
[2018-07-23] MEDS: CLINDAMYCIN HCL 150 MG CAPSULE PO SCH ×3 (04:48→21:37)
[2018-07-23] MEDS: CEFEPIME 1 GM in IV D5W 50 ML IV SCH ×3 (04:48→21:37)
[2018-07-23 06:33] LABS: BASOPHILS # (AUTO) 0.1 /CMM (0.0-0.2); BASOPHILS % (AUTO) 1.2 % (0.0-2.0); HEMATOCRIT 35 % (39-51); HEMOGLOBIN 11.9 g/dL (13.5-17.5); LYMPHOCYTES # (AUTO) 1.8 /CMM (0.8-4.8); LYMPHOCYTES % (AUTO) 19.4 % (20.0-44.0); MEAN CORPUSCULAR HGB CONC 34 g/dl (31.0-36.0); MEAN CORPUSCULAR VOLUME 89 fL (80-96); MONOCYTES # (AUTO) 0.7 /CMM (0.1-1.30); MONOCYTES % (AUTO) 7.6 % (2.0-12.0); NEUTROPHILS # (AUTO) 6.4 /CMM (1.8-8.9); NEUTROPHILS % (AUTO) 69.8 % (43.0-81.0); PLATELET COUNT (AUTO) 579 /CMM (150-450); RED BLOOD CELL COUNT(AUTO) 3.97 MIL/uL (4.5-6.0); WHITE BLOOD COUNT (AUTO) 9.2 K/uL (4.3-11.0)
[2018-07-23 06:35] LABS: CALCIUM, SERUM 8.5 mg/dL (8.5-10.1); CREATININE 1.1 mg/dL (0.6-1.3); MAGNESIUM 2.7 mg/dL (1.8-2.4); PHOSPHORUS 2.9 mg/dL (2.5-4.9); POTASSIUM 3.7 mmol/L (3.5-5.1)
[2018-07-23 08:00] VITALS: BP 154/89
[2018-07-23] MEDS: LACTOBACILLUS RHAMNOSUS GG 1 EACH CAP.SPRINK PO SCH ×2 (09:16→16:23)
[2018-07-23] MEDS: FUROSEMIDE 40 MG TABLET PO SCH (09:16)
[2018-07-23] MEDS: MULTIVITAMINS,THERAGRAN 1 UDTAB TABLET PO SCH (09:16)
[2018-07-23] MEDS: DAKINS QUARTER STRENGTH (0.125%) 480 ML BOTTLE TOP SCH (09:17)
[2018-07-23] MEDS: ENOXAPARIN SODIUM 40 MG/0.4 ML DISP.SYRIN SQ SCH (09:26)
[2018-07-23] MEDS ORDERED: LACT1CAP72 PO (12:29)
[2018-07-23] MEDS ORDERED: CLIN150C15 PO (12:29)
[2018-07-23] MEDS ORDERED: FURO40TA5 PO (12:29)
[2018-07-23] MEDS ORDERED: SODI473S8 TOP (12:29)
[2018-07-23 16:00] VITALS: BP 137/71
[2018-07-23] MEDS: HYDROCODONE/APAP 5/325MG 1 EACH TABLET PO PRN (16:27)
[2018-07-23 20:00] VITALS: BP 129/63
[2018-07-23] MEDS: MAGNESIUM HYDROXIDE 30 ML UDC PO PRN (21:37)
[2018-07-23] MEDS: ARIPIPRAZOLE 5 MG TABLET PO SCH (21:37)
[2018-07-24] MEDS: HYDROMORPHONE INJ 2 MG/ML DISP.SYRIN IV PRN ×6 (03:28→22:59)
[2018-07-24 04:00] VITALS: BP 136/80
[2018-07-24] MEDS: HYDROCODONE/APAP 5/325MG 1 EACH TABLET PO PRN (05:12)
[2018-07-24] MEDS: CEFEPIME 1 GM in IV D5W 50 ML IV SCH ×3 (05:12→21:15)
[2018-07-24] MEDS: CLINDAMYCIN HCL 150 MG CAPSULE PO SCH ×3 (05:12→21:15)
[2018-07-24 08:00] VITALS: BP 127/74
[2018-07-24] MEDS: FUROSEMIDE 40 MG TABLET PO SCH (09:22)
[2018-07-24] MEDS: LACTOBACILLUS RHAMNOSUS GG 1 EACH CAP.SPRINK PO SCH ×2 (09:22→16:42)
[2018-07-24] MEDS: DAKINS QUARTER STRENGTH (0.125%) 480 ML BOTTLE TOP SCH (09:23)
[2018-07-24] MEDS: HYDROCODONE/APAP 10/325MG 1 EA TABLET PO PRN (09:23)
[2018-07-24] MEDS: MULTIVITAMINS,THERAGRAN 1 UDTAB TABLET PO SCH (09:23)
[2018-07-24] MEDS: ENOXAPARIN SODIUM 40 MG/0.4 ML DISP.SYRIN SQ SCH (09:24)
[2018-07-24 12:00] VITALS: BP 136/84
[2018-07-24 16:00] VITALS: BP 148/83
[2018-07-24 20:00] VITALS: BP 109/70
[2018-07-24] MEDS: ARIPIPRAZOLE 5 MG TABLET PO SCH (21:14)
[2018-07-24] MEDS: MAGNESIUM HYDROXIDE 30 ML UDC PO PRN (21:18)
[2018-07-25] MEDS: HYDROCODONE/APAP 10/325MG 1 EA TABLET PO PRN ×2 (01:18→11:10)
[2018-07-25 04:00] VITALS: BP 141/85
[2018-07-25] MEDS: HYDROMORPHONE INJ 2 MG/ML DISP.SYRIN IV PRN ×5 (04:41→23:14)
[2018-07-25] MEDS ORDERED: DAKINS QUARTER STRENGTH (0.125%) 480 ML BOTTLE ONE (05:21)
[2018-07-25] MEDS ORDERED: CEFEPIME 1 GM VIAL ONE (05:22)
[2018-07-25] MEDS: CEFEPIME 1 GM in IV D5W 50 ML IV SCH ×3 (05:32→20:10)
[2018-07-25] MEDS: HYDROCODONE/APAP 5/325MG 1 EACH TABLET PO PRN (05:54)
[2018-07-25] MEDS ORDERED: CLINDAMYCIN HCL 150 MG CAPSULE PO ONE (06:13)
[2018-07-25] MEDS: CLINDAMYCIN HCL 150 MG CAPSULE PO SCH ×3 (06:15→20:15)
[2018-07-25 08:00] VITALS: BP 145/67
[2018-07-25] MEDS: LACTOBACILLUS RHAMNOSUS GG 1 EACH CAP.SPRINK PO SCH ×2 (09:05→17:49)
[2018-07-25] MEDS: MULTIVITAMINS,THERAGRAN 1 UDTAB TABLET PO SCH (09:07)
[2018-07-25] MEDS: FUROSEMIDE 40 MG TABLET PO SCH (09:07)
[2018-07-25] MEDS: ENOXAPARIN SODIUM 40 MG/0.4 ML DISP.SYRIN SQ SCH (09:08)
[2018-07-25] MEDS: DAKINS QUARTER STRENGTH (0.125%) 480 ML BOTTLE TOP SCH (09:09)
[2018-07-25 16:00] VITALS: BP 112/62
[2018-07-25 21:31] LABS: BASOPHILS # (AUTO) 0.1 /CMM (0.0-0.2); BASOPHILS % (AUTO) 0.5 % (0.0-2.0); EOSINOPHILS % (AUTO) 1.5 % (0.0-6.0); HEMATOCRIT 39 % (39-51); HEMOGLOBIN 12.8 g/dL (13.5-17.5); LYMPHOCYTES # (AUTO) 2.5 /CMM (0.8-4.8); LYMPHOCYTES % (AUTO) 23.3 % (20.0-44.0); MEAN CORPUSCULAR HGB CONC 33 g/dl (31.0-36.0); MEAN CORPUSCULAR VOLUME 90 fL (80-96); MONOCYTES # (AUTO) 0.8 /CMM (0.1-1.30); MONOCYTES % (AUTO) 7.6 % (2.0-12.0); NEUTROPHILS # (AUTO) 7.1 /CMM (1.8-8.9); NEUTROPHILS % (AUTO) 67.1 % (43.0-81.0); PLATELET COUNT (AUTO) 663 /CMM (150-450); RED BLOOD CELL COUNT(AUTO) 4.38 MIL/uL (4.5-6.0); WHITE BLOOD COUNT (AUTO) 10.7 K/uL (4.3-11.0)
[2018-07-25 21:49] LABS: CREATININE 1.4 mg/dL (0.6-1.3); MAGNESIUM 2.4 mg/dL (1.8-2.4); POTASSIUM 4.2 mmol/L (3.5-5.1)
[2018-07-25] MEDS: ARIPIPRAZOLE 5 MG TABLET PO SCH (22:04)
[2018-07-26] VITALS: BP 112/62
[2018-07-26] MEDS: HYDROMORPHONE INJ 2 MG/ML DISP.SYRIN IV PRN ×5 (02:26→21:17)
[2018-07-26] MEDS: HYDROCODONE/APAP 5/325MG 1 EACH TABLET PO PRN (03:28)
[2018-07-26] MEDS: CEFEPIME 1 GM in IV D5W 50 ML IV SCH ×3 (05:02→21:16)
[2018-07-26] MEDS: CLINDAMYCIN HCL 150 MG CAPSULE PO SCH ×3 (05:03→21:16)
[2018-07-26] MEDS: HYDROCODONE/APAP 10/325MG 1 EA TABLET PO PRN ×3 (05:31→23:55)
[2018-07-26 07:34] LABS: BASOPHILS # (AUTO) 0.1 /CMM (0.0-0.2); BASOPHILS % (AUTO) 0.8 % (0.0-2.0); EOSINOPHILS % (AUTO) 1.9 % (0.0-6.0); HEMATOCRIT 38 % (39-51); HEMOGLOBIN 12.2 g/dL (13.5-17.5); LYMPHOCYTES # (AUTO) 1.8 /CMM (0.8-4.8); LYMPHOCYTES % (AUTO) 16.9 % (20.0-44.0); MEAN CORPUSCULAR HGB CONC 32 g/dl (31.0-36.0); MEAN CORPUSCULAR VOLUME 90 fL (80-96); MONOCYTES # (AUTO) 0.7 /CMM (0.1-1.30); MONOCYTES % (AUTO) 6.4 % (2.0-12.0); NEUTROPHILS # (AUTO) 7.7 /CMM (1.8-8.9); PLATELET COUNT (AUTO) 537 /CMM (150-450); RED BLOOD CELL COUNT(AUTO) 4.22 MIL/uL (4.5-6.0); WHITE BLOOD COUNT (AUTO) 10.4 K/uL (4.3-11.0)
[2018-07-26 08:00] VITALS: BP 131/89
[2018-07-26 08:19] LABS: CALCIUM, SERUM 8.6 mg/dL (8.5-10.1); MAGNESIUM 2.5 mg/dL (1.8-2.4); PHOSPHORUS 3.2 mg/dL (2.5-4.9)
[2018-07-26] MEDS: LACTOBACILLUS RHAMNOSUS GG 1 EACH CAP.SPRINK PO SCH ×2 (08:36→17:00)
[2018-07-26] MEDS: MULTIVITAMINS,THERAGRAN 1 UDTAB TABLET PO SCH (08:36)
[2018-07-26] MEDS: FUROSEMIDE 40 MG TABLET PO SCH (08:36)
[2018-07-26] MEDS: DAKINS QUARTER STRENGTH (0.125%) 480 ML BOTTLE TOP SCH (08:38)
[2018-07-26] MEDS: ENOXAPARIN SODIUM 40 MG/0.4 ML DISP.SYRIN SQ SCH (08:38)
[2018-07-26 16:00] VITALS: BP_SYST 119; BP_SYST 131; BP_DIAS 74; BP_DIAS 89
[2018-07-26 20:00] VITALS: BP 129/77
[2018-07-26] MEDS: ARIPIPRAZOLE 5 MG TABLET PO SCH (21:16)
[2018-07-27] MEDS: HYDROMORPHONE INJ 2 MG/ML DISP.SYRIN IV PRN ×6 (00:57→22:30)
[2018-07-27] MEDS: HYDROCODONE/APAP 5/325MG 1 EACH TABLET PO PRN ×2 (03:26→17:56)
[2018-07-27] MEDS: CEFEPIME 1 GM in IV D5W 50 ML IV SCH ×3 (04:04→21:22)
[2018-07-27] MEDS: CLINDAMYCIN HCL 150 MG CAPSULE PO SCH ×3 (04:05→21:22)
[2018-07-27] MEDS: HYDROCODONE/APAP 10/325MG 1 EA TABLET PO PRN ×2 (06:23→21:23)
[2018-07-27 08:00] VITALS: BP 124/79
[2018-07-27] MEDS: DAKINS QUARTER STRENGTH (0.125%) 480 ML BOTTLE TOP SCH (09:06)
[2018-07-27] MEDS: FUROSEMIDE 40 MG TABLET PO SCH (09:07)
[2018-07-27] MEDS: LACTOBACILLUS RHAMNOSUS GG 1 EACH CAP.SPRINK PO SCH ×2 (09:07→17:52)
[2018-07-27] MEDS: MULTIVITAMINS,THERAGRAN 1 UDTAB TABLET PO SCH (09:07)
[2018-07-27] MEDS: ENOXAPARIN SODIUM 40 MG/0.4 ML DISP.SYRIN SQ SCH (09:10)
[2018-07-27 16:00] VITALS: BP 117/70
[2018-07-27] MEDS: ARIPIPRAZOLE 5 MG TABLET PO SCH (21:22)
[2018-07-28] MEDS: HYDROMORPHONE INJ 2 MG/ML DISP.SYRIN IV PRN ×5 (01:27→18:30)
[2018-07-28] MEDS: CEFEPIME 1 GM in IV D5W 50 ML IV SCH ×2 (04:35→12:33)
[2018-07-28] MEDS: CLINDAMYCIN HCL 150 MG CAPSULE PO SCH ×2 (04:36→12:33)
[2018-07-28 08:00] VITALS: BP 159/75
[2018-07-28] MEDS: LACTOBACILLUS RHAMNOSUS GG 1 EACH CAP.SPRINK PO SCH ×2 (09:18→17:37)
[2018-07-28] MEDS: FUROSEMIDE 40 MG TABLET PO SCH (09:19)
[2018-07-28] MEDS: MULTIVITAMINS,THERAGRAN 1 UDTAB TABLET PO SCH (09:19)
[2018-07-28] MEDS: ENOXAPARIN SODIUM 40 MG/0.4 ML DISP.SYRIN SQ SCH (09:20)
[2018-07-28] MEDS: DAKINS QUARTER STRENGTH (0.125%) 480 ML BOTTLE TOP SCH (09:20)
[2018-07-28] MEDS: HYDROCODONE/APAP 10/325MG 1 EA TABLET PO PRN (12:53)
[2018-07-28 16:00] VITALS: BP 120/67
== END 2018-07-28 18:40 | DRG 720 ==
LOC: ER 01:46 → MEDSG1 03:51
PROVIDERS: ADMIT Nurse Practitioner Acute Care; ATTEND Internal Medicine
DX: A41.9 Sepsis, unspecified organism (principal); N17.0 Acute kidney failure with tubular necrosis; L03.116 Cellulitis of left lower limb; I10 Essential (primary) hypertension; K21.9 Gastro-esophageal reflux disease without esophagitis; L03.115 Cellulitis of right lower limb; Z59.0 Homelessness; E87.1 Hypo-osmolality and hyponatremia; I87.2 Venous insufficiency (chronic) (peripheral); E78.5 Hyperlipidemia, unspecified; E87.6 Hypokalemia; F31.60 Bipolar disorder, current episode mixed, unspecified; I25.10 Atherosclerotic heart disease of native coronary artery without angina pectoris; Z91.018 Allergy to other foods; Z79.82 Long term (current) use of aspirin; Z79.899 Other long term (current) drug therapy; Z98.890 Other specified postprocedural states; Z91.19 Patient's noncompliance with other medical treatment and regimen; Z91.14 Patient's other noncompliance with medication regimen; L97.929 Non-pressure chronic ulcer of unspecified part of left lower leg with unspecified severity; L97.919 Non-pressure chronic ulcer of unspecified part of right lower leg with unspecified severity; I89.0 Lymphedema, not elsewhere classified; I87.8 Other specified disorders of veins; I73.9 Peripheral vascular disease, unspecified; E87.70 Fluid overload, unspecified; E86.9 Volume depletion, unspecified; E66.01 Morbid (severe) obesity due to excess calories; Z68.39 Body mass index [BMI] 39.0-39.9, adult; D64.9 Anemia, unspecified; B96.5 Pseudomonas (aeruginosa) (mallei) (pseudomallei) as the cause of diseases classified elsewhere; B95.62 Methicillin resistant Staphylococcus aureus infection as the cause of diseases classified elsewhere; D47.3 Essential (hemorrhagic) thrombocythemia
CPT/HCPCS: 36415; 80048-TC; 80061-TC; 80202-TC; 83605-TC; 83735-TC; 84100-TC; 84484-TC; 85025-TC; 85652-TC; 85730-TC; 86140-TC; 87040-TC; 87070-TC; 87081-TC; 87186-TC; 93970-TC; A4216; A4217; A6253; A6402; A6403; G0378; J0692; J1170; J1650; J1940; J2270; J2405; J2543; J3370; J3490; J7060; J7070

== ENCOUNTER 2018-09-13 04:09 | Emergency (ER) | payer OTHER ==
[~2018-09-13] VITALS: Ht 175.3 cm; Wt 122.5 kg
[~2018-09-13 04:09] MED LIST changes: -AMOX500C2 PO; -ARIP5TAB10 PO; +ARIP5TAB20 PO; -ASPI-1152 PO; +ASPI-1169 PO; +ATOR10TA PO; +CLIN150C15 PO; -FERR1TAB44 PO; +FERR325T28 PO; +FURO40TA5 PO; -ISOS10TA8 PO; +LACT1CAP72 PO; -LEVO500T75 PO; -ROSU5TAB PO; +SODI473S8 TOP
[2018-09-13 04:10] VITALS: BP 162/84
== END 2018-09-13 05:17 | disposition home or self-care (01) ==
LOC: ER 04:12
DX: Z48.01 Encounter for change or removal of surgical wound dressing (principal); I25.10 Atherosclerotic heart disease of native coronary artery without angina pectoris; K21.9 Gastro-esophageal reflux disease without esophagitis; E78.5 Hyperlipidemia, unspecified; I10 Essential (primary) hypertension; F32.9 Major depressive disorder, single episode, unspecified; I89.0 Lymphedema, not elsewhere classified; I25.2 Old myocardial infarction; Z59.0 Homelessness; Z90.89 Acquired absence of other organs; Z79.82 Long term (current) use of aspirin; Z91.018 Allergy to other foods

== ENCOUNTER 2018-10-17 17:08 | Emergency (ER) | payer OTHER ==
[~2018-10-17] VITALS: Ht 176.5 cm; Wt 122.5 kg
[2018-10-17 17:49] VITALS: BP 158/100
[2018-10-17] MEDS ORDERED: SILVER SULFADIAZINE CREAM 25 GM TUBE ONE (20:58)
--- NOTE | 2018-10-17 21:32 | NUR ---
Patient given written and verbal discharge instructions. Patient verbalizes understanding of instructions. Patient is ambulatory with steady gait. Refuses offer of nursing home placement. Patient given list of available shelters in surrounding area.
== END 2018-10-17 21:43 | disposition home or self-care (01) ==
LOC: ER 17:12
DX: S81.802D Unspecified open wound, left lower leg, subsequent encounter (principal); S81.801D Unspecified open wound, right lower leg, subsequent encounter; R60.0 Localized edema; I10 Essential (primary) hypertension; I25.2 Old myocardial infarction; K21.9 Gastro-esophageal reflux disease without esophagitis; Z90.89 Acquired absence of other organs; Z91.018 Allergy to other foods; Z59.0 Homelessness; Z79.899 Other long term (current) drug therapy; Z79.82 Long term (current) use of aspirin; X58.XXXD Exposure to other specified factors, subsequent encounter
CPT/HCPCS: 99283; A6253 ×2; A6403

== ENCOUNTER 2020-12-03 15:44 | Inpatient (IN) | payer BC, OTHER ==
[~2020-12-03] VITALS: Ht 175.3 cm; Wt 117.0 kg
[~2020-12-03 15:44] MED LIST changes: -ARIP5TAB20 PO; +ARIP5TAB59 PO; +CLIN-27 PO; -CLIN150C15 PO
--- NOTE | 2020-12-03 16:00 | NUR ---
AT BEDSIDE FOR EVAL.
--- NOTE | 2020-12-03 16:22 | NUR ---
ER PHLEB AT BEDSIDE FOR BLOOD DRAW.
[2020-12-03 16:39] LABS: BASOPHILS # (AUTO) 0.1 /CMM (0.0-0.2); BASOPHILS % (AUTO) 1.4 % (0.0-2.0); EOSINOPHILS % (AUTO) 2.1 % (0.0-6.0); HEMATOCRIT 39 % (39-51); LYMPHOCYTES # (AUTO) 1.9 /CMM (0.8-4.8); LYMPHOCYTES % (AUTO) 20.8 % (20.0-44.0); MEAN CORPUSCULAR HGB CONC 33 g/dl (31.0-36.0); MEAN CORPUSCULAR VOLUME 90 fL (80-96); MONOCYTES # (AUTO) 0.7 /CMM (0.1-1.30); MONOCYTES % (AUTO) 7.8 % (2.0-12.0); NEUTROPHILS # (AUTO) 6.1 /CMM (1.8-8.9); NEUTROPHILS % (AUTO) 67.9 % (43.0-81.0); PLATELET COUNT (AUTO) 292 /CMM (150-450); RED BLOOD CELL COUNT(AUTO) 4.36 MIL/uL (4.5-6.0)
[2020-12-03 16:51] LABS: CALCIUM, SERUM 8.7 mg/dL (8.5-10.1); CREATININE 1.3 mg/dL (0.6-1.3); POTASSIUM 3.7 mmol/L (3.5-5.1)
[2020-12-03] MEDS ORDERED: VANCOMYCIN 1.5 GM in IV D5W 500 ML IV ONE (17:00)
--- NOTE | 2020-12-03 17:04 | NUR ---
GAVE MOVESHEET TO ADMITTING
--- NOTE | 2020-12-03 17:50 | NUR ---
[facility] CALLED FRONT WINDOW CASHIER PAGED.
[2020-12-03] MEDS ORDERED: CEFTRIAXONE 1 G in IV D5W 50 ML IV SCH (18:00)
[2020-12-03] MEDS ORDERED: MAGNESIUM HYDROXIDE 30 ML UDC PO PRN (18:00)
[2020-12-03] MEDS ORDERED: Z GUARD REMEDY 2 OZ OINT TP PRN (18:00)
[2020-12-03] MEDS ORDERED: MAG HYDROX/AL HYDROX/SIMETH 30 ML UDC PO PRN (18:00)
[2020-12-03] MEDS ORDERED: ONDANSETRON HCL/PF 4 MG/2 ML VIAL IVP PRN (18:00)
[2020-12-03] MEDS ORDERED: ACETAMINOPHEN 325 MG TABLET PO PRN (18:00)
[2020-12-03] MEDS ORDERED: ZOLPIDEM TARTRATE 5 MG TABLET PO PRN (18:00)
--- NOTE | 2020-12-03 19:03 | NUR ---
received a call fromthe lab regarding covid result "negative".
[2020-12-03] MEDS ORDERED: HYDROCODONE/APAP 10/325MG TABLET PO ONE (20:00)
[2020-12-03] MEDS ORDERED: HYDROCODONE/APAP 10/325MG TABLET ONE (20:04)
--- NOTE | 2020-12-03 20:22 | NUR ---
REPORT GIVEN TO KARL HICKS FOR CANDI
--- NOTE | 2020-12-03 21:09 | NUR ---
PT TRANSFERRED TO ROOM VIA ACLS PROTOCOL
--- NOTE | 2020-12-03 21:15 | NUR ---
TRANSCRIPT EVALUATOR ADMITTING NOTE PATIENT TRANSFERRED IN RM 324-2 TELE, PATIENT BREATHING EVEN AND UNLABORED, TOLERATING ROOM AIR AT 97% O2 SATURATION. TELE MONITOR READS SR 88 BPM. PATIENT ABLE TO AMBULATE WITH FWW. PATIENT HAS A LUMP AT THE LEFT SIDE OF HIS ABDOMEN AND A HERNIA ON THE EPIGASTRIC REGION OF THE ABDOMEN. PATIENT HAS BILATERAL LOWER EXTREMITY CELLULITIS AND STASIS ULCER, PATIENT REFUSED TO HAVE PICTURE TAKEN OF STASIS ULCER IT HAD JUST BEEN CHANGED IN THE EMERGENCY DEPARTMENT, PICTURE TAKEN OF THE REDNESS AND SWELLING. LEFT FOOT TOE AMPUTATION NOTED. PATIENT IS A/O X 4, ABLE TO MAKE NEEDS KNOWN. R AC # 20 G PATENT. PATIENT ORIENTED TO UNIT, ROOM, PRIMARY NURSE, MEMBER SERVICES COORDINATOR, AND CHARGE NURSE. SAFETY MEASURES IN PLACE: BED IN LOCKED AND LOWEST POSITION, SIDE RAILS UP, CALL LIGHT WITHIN REACH. WILL MONITOR PATIENT CLOSELY. Addendum: 12/04/20 at 0736 by MIGUEL MAYFIELD RN PATIENT HAS BILATERAL LOWER EXTREMITY DRESSING, REFUSED TO GET WOUND PICTURE TAKEN AT THIS TIME BECAUSE DRESSING HAD JUST BEEN CHANGED IN THE EMERGENCY DEPARTMENT.
[2020-12-03 21:30] VITALS: BP 139/84
--- NOTE | 2020-12-03 22:00 | NUR ---
2 BOTTLES OF MEDICATION OBTAINED FROM PATIENT. NITROSTAT AND A BOTTLE OF ACETAMINOPHEN (GREEN) AND IBUPROFEN (RED) PILLS MIXED.
[2020-12-03] MEDS ORDERED: CEFTRIAXONE 1 G VIAL ONE (22:24)
[2020-12-03] MEDS: IV 1/2NS 1000 ML 1,000 ML IV PRN (22:44)
[2020-12-04] VITALS: BP 131/83
[2020-12-04] MEDS ORDERED: VENL75TA4 PO (02:31)
[2020-12-04] MEDS ORDERED: ACET-73 PO (02:31)
[2020-12-04] MEDS ORDERED: IBUP100O19 PO (02:31)
[2020-12-04] MEDS ORDERED: OMEP40CA13 PO (02:31)
[2020-12-04] MEDS ORDERED: NITR0.4T SL (02:31)
[2020-12-04 05:25] VITALS: BP 149/97
[2020-12-04 07:15] LABS: BASOPHILS # (AUTO) 0.1 /CMM (0.0-0.2); BASOPHILS % (AUTO) 0.6 % (0.0-2.0); EOSINOPHILS % (AUTO) 3.2 % (0.0-6.0); HEMATOCRIT 38 % (39-51); HEMOGLOBIN 12.5 g/dL (13.5-17.5); LYMPHOCYTES # (AUTO) 1.6 /CMM (0.8-4.8); MEAN CORPUSCULAR HGB CONC 33 g/dl (31.0-36.0); MEAN CORPUSCULAR VOLUME 90 fL (80-96); MONOCYTES # (AUTO) 0.7 /CMM (0.1-1.30); MONOCYTES % (AUTO) 8.5 % (2.0-12.0); NEUTROPHILS # (AUTO) 5.8 /CMM (1.8-8.9); NEUTROPHILS % (AUTO) 68.7 % (43.0-81.0); PLATELET COUNT (AUTO) 271 /CMM (150-450); RED BLOOD CELL COUNT(AUTO) 4.21 MIL/uL (4.5-6.0); WHITE BLOOD COUNT (AUTO) 8.5 K/uL (4.3-11.0)
--- NOTE | 2020-12-04 07:15 | NUR ---
FURNACE CONVERTER NOTES PATIENT IN BED ALERT ORIENTED X 4. NO ACUTE DISTRESS NOTED. BREATHING UNLABORED. DENIED ANY PAIN AT THIS TIME . IV ACCESS PATENT AND INTACT, NO REDNESS, NO SWELLING NOTED. SAFETY MEASURES IN PLACE, CALL LIGHT WITHIN REACH. WILL CONTINUE TO MONITOR ACCORDINGLY.
[2020-12-04 07:40] LABS: BILIRUBIN,TOTAL 0.4 mg/dL (0.2-1.0); CALCIUM, SERUM 8.3 mg/dL (8.5-10.1); CREATININE 1.1 mg/dL (0.6-1.3); MAGNESIUM 2.3 mg/dL (1.8-2.4); PHOSPHORUS 3.4 mg/dL (2.5-4.9); POTASSIUM 3.9 mmol/L (3.5-5.1); TOTAL PROTEIN, SERUM 7.3 g/dL (6.4-8.2)
--- NOTE | 2020-12-04 07:40 | NUR ---
IRRIGATION MANAGER CLOSING NOTE PATIENT IN NO ACUTE DISTRESS AT THIS TIME. BREATHING EVEN AND UNLABORED, TOLERATES ROOM AIR. NO COMPLAINS OF PAIN AT THIS TIME. SAFETY MEASURES MAINTAINED. TELE MONITOR READS SR 70 BPM. ALL ORDERS CARRIED OUT, NEEDS ALL MET AND ATTENDED. ENDORSED TO DAY SHIFT NURSE FOR CANDI.
[2020-12-04] MEDS: METFORMIN 500 MG TABLET PO SCH ×2 (09:34→16:38)
--- NOTE | 2020-12-04 10:00 | NUR ---
MS RN NOTES PATIENT REFUSED BILATERAL LOWER EXTREMITIES DRESSING OPENED DESPITE OF EXPLANATION OF RISKS AND BENEFITS.
[2020-12-04] MEDS: VANCOMYCIN 1.25 GM in IV D5W 250 ML IV SCH (12:50)
[2020-12-04] MEDS: GABAPENTIN 300 MG CAPSULE PO SCH ×2 (12:52→16:38)
[2020-12-04] MEDS: LACTOBACILLUS RHAMNOSUS GG 1 EACH CAP.SPRINK PO SCH (16:38)
[2020-12-04] MEDS: IV 1/2NS 1000 ML 1,000 ML IV PRN (16:39)
--- NOTE | 2020-12-04 19:00 | NUR ---
TUBING DRIER NOTES PATIENT IN BED ALERT ORIENTED X 4. NO ACUTE DISTRESS NOTED. BREATHING UNLABORED. DENIED ANY PAIN AT THIS TIME . IV ACCESS PATENT AND INTACT, NO REDNESS, NO SWELLING NOTED. DENIED PAIN AT THIS TIME. NEEDS ATTENDED AND ANTICIPATED. SAFETY MEASURES IN PLACE, CALL LIGHT WITHIN REACH. WILL ENDORSE TO NIGHT NURSE FOR CONTINUITY OF CARE.
--- NOTE | 2020-12-04 19:15 | NUR ---
REFRIGERATION ENGINEERING TEACHER OPENING NOTE PATIENT IS IN BED AWAKE, ABLE TO MAKE NEEDS KNOWN A/O X 4. TELE READING IS AFLUTTER CONTROLLED 88 BPM. BREATHING EVEN AND UNLABORED, TOLERATING ROOM AIR. REDNESS PRESENT ON BLE AND BANDAGE INTACT. SAFETY MEASURES IN PLACE: BED IN LOCKED AND LOWEST POSITION, CALL LIGHT WITHIN REACH, SIDE RAILS UP, BED ALARM ON. WILL MONITOR PATIENT CLOSELY.
[2020-12-04 20:00] VITALS: BP 171/84
[2020-12-04] MEDS: METOPROLOL TARTRATE 25 MG TABLET PO SCH (20:15)
[2020-12-04] MEDS: CEFTRIAXONE 1 G in IV D5W 50 ML IV SCH (20:15)
[2020-12-04] MEDS: ARIPIPRAZOLE 5 MG TABLET PO SCH (21:45)
[2020-12-04] MEDS: ATORVASTATIN 10 MG TABLET PO SCH (21:45)
[2020-12-04] MEDS: HYDROCODONE/APAP 5/325MG TABLET PO PRN (21:46)
--- NOTE | 2020-12-04 21:46 | NUR ---
NORCO GIVEN FOR HEADACHE 7/10 ON THE PAIN SCALE 0-10.
[2020-12-05] VITALS: BP 137/86
[2020-12-05 04:00] VITALS: BP 153/88
[2020-12-05] MEDS: VANCOMYCIN 1.25 GM in IV D5W 250 ML IV SCH ×3 (06:34→18:36)
--- NOTE | 2020-12-05 07:20 | NUR ---
VANCO TROUGH RESULTED LATE, CALLED PHARMACY TO CONFIRM IF IT IS OKAY TO STILL GIVE THE VANCO DOSE DUE AT 6. CHAPARRO FROM PHARMACY SAID OKAY TO GIVE.
[2020-12-05 07:29] LABS: CALCIUM, SERUM 9.2 mg/dL (8.5-10.1); POTASSIUM 3.8 mmol/L (3.5-5.1)
--- NOTE | 2020-12-05 07:38 | NUR ---
RN OPENING NOTES RECEIVED PATIENT IN BED. ALERT AND ORIENTED X4. PATIENT STABLE ON ROOM AIR. NO SIGNS OR SYMPTOMS OF DISTRESS NOTED. BREATHING IS REGULAR AND UNLABORED. IV ACCESS ON RAC#20 PATENT AND INTACT. ABLE TO MAKE COMMUNICATE NEEDS. SAFETY MEASURES IN PLACE, BED LOCKED IN LOWEST POSITION. SIDE RAILS UP X 2. CALL LIGHT IS WITHIN REACH. WILL CONTINUE TO MONITOR THROUGHOUT SHIFT.
--- NOTE | 2020-12-05 07:45 | NUR ---
CERAMIC MAKER DEMONSTRATOR CLOSING NOTE PATIENT IS AWAKE, A/O X 4. BREATHING EVEN AND UNLABORED. ALL NEEDS MET AND ATTENDED. ALL ORDERS CARRIED OUT. TELE MONITOR READS AFLUTTER AT 61 BPM. IV FLUIDS INFUSING WELL. WOUND DRESSING CHANGED IT WAS SOILED. CLEANED WITH NS, GAUZE ON TOP OF WOUND, COVERED WITH KERLIX WRAP. ENDORSED TO DAY SHIFT NURSE.
[2020-12-05 08:00] VITALS: BP 148/86
[2020-12-05] MEDS: ASPIRIN 81 MG TAB.CHEW PO SCH (08:19)
[2020-12-05] MEDS: METFORMIN 500 MG TABLET PO SCH ×2 (08:20→17:27)
[2020-12-05] MEDS: FUROSEMIDE 40 MG TABLET PO SCH (08:21)
[2020-12-05] MEDS: GABAPENTIN 300 MG CAPSULE PO SCH ×3 (08:21→17:27)
[2020-12-05] MEDS: MULTIVITAMINS,THERAGRAN 1 UDTAB TABLET PO SCH (08:21)
[2020-12-05] MEDS: LACTOBACILLUS RHAMNOSUS GG 1 EACH CAP.SPRINK PO SCH ×2 (08:21→17:27)
[2020-12-05] MEDS: FERROUS SULFATE (325 MG) 325 MG/TAB TABLET PO SCH (08:21)
[2020-12-05] MEDS: LISINOPRIL (5MG) 5 MG TABLET PO SCH (08:23)
[2020-12-05] MEDS: PANTOPRAZOLE 40 MG TABLET.DR PO SCH (08:23)
[2020-12-05] MEDS: METOPROLOL TARTRATE 25 MG TABLET PO SCH ×2 (08:24→22:11)
--- NOTE | 2020-12-05 10:23 | NUR ---
WOUND CARE CONSULT: DR SAN CALLED FOR DPM CONSULT. JOB SCORE IS 18. MD IN AGREEMENT WITH PLAN OF CARE.
--- NOTE | 2020-12-05 13:57 | NUR ---
Social Service Consult: family services manager consult requested for homelessness. Patient is a 65-year-old, male. SW met with the patient at his hospital bed in the med-surg unit. Patient was alert and oriented x4. Patient was resting. Per chart, patient was brought into the hospital by self on 12/03/20 due to lower extremity pain and swelling. SW asked patient if he is currently homeless and patient stated that he has not been homeless since December 2019. Patient stated that he currently lives at [address] [place] [address]; [phone]. Patient notified SW that he requests to be discharged to a [facility] facility if he is accepted, and stated that he mentioned this to Master OceanKailee. SW asked patient if he has social support and patient stated that he has some support from friends. SW assessed patients current source of income and patient stated that he receives SSDI and food stamps. SW assessed patients history of substance use and patient stated that he stopped drinking alcohol in 1992 and has only used marijuana occasionally for pain. Patient stated that he has a history of Bipolar Disorder and is currently taking his psychotropic medications as prescribed. Patient denies any hallucinations and delusions. Patient denies any current suicidal or homicidal ideation. SW discussed discharge plan with the patient and patient stated that he would like to go to a SNF. SW will follow up with nurse case managementKaiele regarding this discharge plan. PLAN: Patient plans to go to a SNF if he is accepted. SW to follow up with nurse case management, Ann to verify this discharge plan. Kailee ARAYA to follow up with discharge. No further SS intervention at this time, however SW will remain available as needed.
--- NOTE | 2020-12-05 13:58 | NUR ---
Jammer Hooker note: TAY followed up with case resource managerKailee to discuss patient's request to be discharged to a SNF. Kailee ARAYA stated that the patient has been accepted to [facility] ([address] [place] [address]; ). Kailee ARAYA to follow up with this discharge plan. No further SS intervention at this time, however SW will remain available as needed.
[2020-12-05 16:00] VITALS: BP 146/97
--- NOTE | 2020-12-05 19:08 | NUR ---
RN CLOSING NOTES RECEIVED PATIENT IN BED. ALERT AND ORIENTED X4. PATIENT STABLE ON ROOM AIR. NO COMPLAINTS OF PAIN AT THIS TIME.NO SIGNS OR SYMPTOMS OF DISTRESS NOTED. BREATHING IS REGULAR AND UNLABORED. IV ACCESS ON RAC#20 PATENT AND INTACT. ABLE TO MAKE COMMUNICATE NEEDS. SAFETY MEASURES IN PLACE, BED LOCKED IN LOWEST POSITION. SIDE RAILS UP X 2. MEDICATIONS GIVEN PRESCRIBED. WILL ENDORSE CONTINUITY OF CARE TO NEXT SHIFT.
[2020-12-05 20:00] VITALS: BP 123/80
--- NOTE | 2020-12-05 20:20 | NUR ---
REPORTS RECEIVED FROM KARL SANTIAGO FOR CANDI, CHECKED PATIENT, PATIENT IN BED, ASLEEP, AROUSABLE, A/O X4. NO S/S OF DISTRESS NOTED. CALL LIGHT WITHIN REACH. BED IN LOWEST AND LOCKED POSITION.
[2020-12-05] MEDS: CEFTRIAXONE 1 G in IV D5W 50 ML IV SCH (22:09)
[2020-12-05] MEDS: IV 1/2NS 1000 ML 1,000 ML IV PRN (22:10)
[2020-12-05] MEDS: ARIPIPRAZOLE 5 MG TABLET PO SCH (22:10)
[2020-12-05] MEDS: ATORVASTATIN 10 MG TABLET PO SCH (22:10)
[2020-12-06] MEDS: ENOXAPARIN SODIUM 40 MG/0.4 ML DISP.SYRIN SQ SCH ×2 (01:30→21:14)
[2020-12-06] MEDS: VANCOMYCIN 1.25 GM in IV D5W 250 ML IV SCH ×2 (05:16→17:20)
--- NOTE | 2020-12-06 07:00 | NUR ---
MS RN OPENING NOTES RECEIVED PT AWAKE IN BED AT THIS TIME. AOX4, ABLE TO VERBALIZE NEEDS. NO SOB NOTED, NO S/S OF ANY APPARENT DISTRESS NOTED, NO C/O PAIN AT THIS TIME. RESPIRATIONS EVEN AND UNLABORED.PT STABLE ON RA. IV ACCESS NOTED IN RAC G#18, INTACT, PATENT AND FLUSHING WELL. SAFETY PRECAUTIONS IN PLACE AND MAINTAIN AT ALL TIMES. BED IN LOWEST LOCK POSITION, SIDE RAILS UPX2, CALL LIGHT AND TABLE WITHIN. WILL CONTINUE TO MONITOR
[2020-12-06 07:20] LABS: CALCIUM, SERUM 9.3 mg/dL (8.5-10.1); CREATININE 1.2 mg/dL (0.6-1.3); POTASSIUM 3.7 mmol/L (3.5-5.1)
[2020-12-06 08:00] VITALS: BP 149/86
[2020-12-06] MEDS: ASPIRIN 81 MG TAB.CHEW PO SCH (08:39)
[2020-12-06] MEDS: GABAPENTIN 300 MG CAPSULE PO SCH ×3 (08:40→17:11)
[2020-12-06] MEDS: PANTOPRAZOLE 40 MG TABLET.DR PO SCH (08:40)
[2020-12-06] MEDS: FUROSEMIDE 40 MG TABLET PO SCH (08:40)
[2020-12-06] MEDS: HYDROCODONE/APAP 5/325MG TABLET PO PRN ×2 (08:40→20:44)
[2020-12-06] MEDS: METFORMIN 500 MG TABLET PO SCH ×2 (08:41→17:11)
[2020-12-06] MEDS: MULTIVITAMINS,THERAGRAN 1 UDTAB TABLET PO SCH (08:41)
[2020-12-06] MEDS: FERROUS SULFATE (325 MG) 325 MG/TAB TABLET PO SCH (08:41)
[2020-12-06] MEDS: METOPROLOL TARTRATE 25 MG TABLET PO SCH ×2 (08:41→21:11)
[2020-12-06] MEDS: LACTOBACILLUS RHAMNOSUS GG 1 EACH CAP.SPRINK PO SCH ×2 (08:41→17:10)
[2020-12-06] MEDS: LISINOPRIL (5MG) 5 MG TABLET PO SCH (08:44)
--- NOTE | 2020-12-06 08:45 | NUR ---
PT C/O OF BURNING ANKLE PAIN OF /10. PT NOTED WITH FACIAL GRIMACE. VS BP 149/86, HR 76, RR 18, T 97.6, SPO2 97% ON RA. PER PT REQUEST NORCO 5-325MG PO Q4H PRN FOR PAIN ADMINISTERED PER ORDER. WILL CONTINUE TO MONITOR
--- NOTE | 2020-12-06 14:15 | NUR ---
IV ACCESS INFILTRATED AT THIS TIME. IV REMOVED, PRESSURE APPLIED, SECURE WITH GAUZE AND TAPE. NO S/O BLEDDING NOTED. ARM ELEVATED ON A PILLOW, ICE PACK APPLIED. WILL CONTINUE PLAN OF CARE
--- NOTE | 2020-12-06 14:17 | NUR ---
IV INSERTED IN RIGHT HAND G#24 AT THIS TIME, GOOD BLOOD RETURN NOTED, PT TOLERATED WELL. WILL CONTINUE WITH PLAN OF CARE Addendum: 12/06/20 at 1634 by CORBIN GRAY RN IV INSERTED IN LEFT HAND G#24 AT THIS TIME, GOOD BLOOD RETURN NOTED, PT TOLERATED WELL. WILL CONTINUE WITH PLAN OF CARE
[2020-12-06 16:00] VITALS: BP 104/69
[2020-12-06] MEDS: IV 1/2NS 1000 ML 1,000 ML IV PRN (17:12)
--- NOTE | 2020-12-06 18:48 | NUR ---
MS RN CLOSING NOTES PT AWAKE IN BED AT THIS TIME. PT REMAINED STABLE THROUGHOUT SHIFT. ALL CARE, NEEDS, MEDICATION AND TREATMENT ADMINISTERED ANTICIPATED PER ORDER. WOUND CARE PROVIDED. PAIN CONTROL ADMINISTERED. PT MOTIVATED TO SELF CARE. SAFETY PRECAUTIONS IN PLACE AND MAINTAINED AT ALL TIMES. BED IN LOWEST LOCKED POSITION, HOB ELEVATED, SIDE RAILS UP X 2. CALL LIGHT AND TABLE WITHIN REACH. WILL ENDORSE TO TECHNICAL AID NURSE FOR CANDI
[2020-12-06 20:00] VITALS: BP 109/61
--- NOTE | 2020-12-06 20:00 | NUR ---
MS RN OPENING NOTE RECEIVED PT AWAKE IN BED. AOX4, ABLE TO VERBALIZE NEEDS. NO SOB NOTED. NO S/S OF RESPIRATORY DISTRESS. NO C/O PAIN AT THIS TIME. PT STABLE ON ROOM AIR. IV ACCESS NOTED IN RAC #18, INTACT, PATENT AND FLUSHING WELL. SAFETY PRECAUTIONS MAINTAINED. BED IN LOWEST LOCKED POSITION, HOB ELEVATED, SIDE RAILS UPX2. CALL LIGHT AND TABLE WITHIN REACH. WILL CONTINUE WITH PLAN OF CARE.
[2020-12-06] MEDS: CEFTRIAXONE 1 G in IV D5W 50 ML IV SCH (20:40)
--- NOTE | 2020-12-06 20:44 | NUR ---
MS RN PAIN PT C/O ACHING PAIN IN RIGHT ANKLE, RATED 7/10 ON PAIN SCALE. VSS. PER PT REQUEST, ADMINISTERED NORCO 5-325 PO Q4H PRN AT THIS TIME. WILL CONTINUE TO MONITOR.
[2020-12-06] MEDS: ATORVASTATIN 10 MG TABLET PO SCH (21:10)
[2020-12-06] MEDS: ARIPIPRAZOLE 5 MG TABLET PO SCH (21:12)
[2020-12-07] MEDS: VANCOMYCIN 1 GM in IV D5W 250ml IV SCH ×2 (05:22→18:36)
[2020-12-07 05:56] LABS: BASOPHILS # (AUTO) 0.1 /CMM (0.0-0.2); BASOPHILS % (AUTO) 0.6 % (0.0-2.0); EOSINOPHILS % (AUTO) 2.8 % (0.0-6.0); HEMATOCRIT 39 % (39-51); LYMPHOCYTES # (AUTO) 1.8 /CMM (0.8-4.8); LYMPHOCYTES % (AUTO) 19.8 % (20.0-44.0); MEAN CORPUSCULAR HGB CONC 33 g/dl (31.0-36.0); MEAN CORPUSCULAR VOLUME 91 fL (80-96); MONOCYTES # (AUTO) 0.9 /CMM (0.1-1.30); MONOCYTES % (AUTO) 9.7 % (2.0-12.0); NEUTROPHILS # (AUTO) 6.2 /CMM (1.8-8.9); NEUTROPHILS % (AUTO) 67.1 % (43.0-81.0); PLATELET COUNT (AUTO) 270 /CMM (150-450); RED BLOOD CELL COUNT(AUTO) 4.34 MIL/uL (4.5-6.0); WHITE BLOOD COUNT (AUTO) 9.2 K/uL (4.3-11.0)
[2020-12-07 06:13] LABS: CREATININE 1.2 mg/dL (0.6-1.3); POTASSIUM 3.7 mmol/L (3.5-5.1)
--- NOTE | 2020-12-07 06:33 | NUR ---
MS RN CLOSING NOTE PT IS AWAKE IN BED AT THIS TIME. AOX4, ABLE TO VERBALIZE NEEDS. NO SOB NOTED. NO S/S OF RESPIRATORY DISTRESS. NO C/O PAIN AT THIS TIME. PT STABLE ON ROOM AIR. IV ACCESS IS INTACT, PATENT AND FLUSHING WELL. ALL CARE, NEEDS, MEDICATIONS, AND TREATMENT ADMINISTERED ANTICIPATED PER ORDER. PAIN MANAGEMENT AND WOUND CARE ADMINISTERED PER ORDER. SAFETY PRECAUTIONS MAINTAINED. BED IN LOWEST LOCKED POSITION, HOB ELEVATED, SIDE RAILS UPX2. CALL LIGHT AND TABLE WITHIN REACH. WILL ENDORSE TO ONCOMING NURSE FOR CONTINUITY OF CARE.
[2020-12-07 08:00] VITALS: BP 129/78
[2020-12-07] MEDS: HYDROCODONE/APAP 10/325MG TABLET PO PRN ×2 (08:22→16:39)
[2020-12-07] MEDS: FERROUS SULFATE (325 MG) 325 MG/TAB TABLET PO SCH (08:23)
[2020-12-07] MEDS: METFORMIN 500 MG TABLET PO SCH ×2 (08:23→16:39)
[2020-12-07] MEDS: ASPIRIN 81 MG TAB.CHEW PO SCH (08:23)
[2020-12-07] MEDS: FUROSEMIDE 40 MG TABLET PO SCH (08:23)
[2020-12-07] MEDS: PANTOPRAZOLE 40 MG TABLET.DR PO SCH (08:23)
[2020-12-07] MEDS: METOPROLOL TARTRATE 25 MG TABLET PO SCH ×2 (08:24→20:55)
[2020-12-07] MEDS: LISINOPRIL (5MG) 5 MG TABLET PO SCH (08:25)
[2020-12-07] MEDS: MULTIVITAMINS,THERAGRAN 1 UDTAB TABLET PO SCH (08:25)
[2020-12-07] MEDS: GABAPENTIN 300 MG CAPSULE PO SCH ×3 (08:25→16:38)
[2020-12-07] MEDS: LACTOBACILLUS RHAMNOSUS GG 1 EACH CAP.SPRINK PO SCH ×2 (09:16→16:38)
--- NOTE | 2020-12-07 16:00 | NUR ---
DRESSING CHANGED BILATERAL LOWER LEGS
--- NOTE | 2020-12-07 19:05 | NUR ---
PATIENT REPORTED THROUGHOUT THE SHIFT THAT NORCO 10 MG WORKS BETTER FOR HIM, "LASTS LONGER AND MAKES PAIN MORE DULL".
[2020-12-07 20:00] VITALS: BP 121/77
[2020-12-07] MEDS: CEFTRIAXONE 1 G in IV D5W 50 ML IV SCH (20:08)
[2020-12-07] MEDS: ENOXAPARIN SODIUM 40 MG/0.4 ML DISP.SYRIN SQ SCH (20:52)
[2020-12-07] MEDS: ATORVASTATIN 10 MG TABLET PO SCH (21:04)
[2020-12-07] MEDS: ARIPIPRAZOLE 5 MG TABLET PO SCH (21:04)
[2020-12-08] MEDS: HYDROCODONE/APAP 10/325MG TABLET PO PRN (04:53)
--- NOTE | 2020-12-08 04:53 | NUR ---
MS RN PAIN PT C/O ACHING PAIN IN RIGHT ANKLE, RATED 9/10 ON PAIN SCALE. VSS. PER PT REQUEST, ADMINISTERED NORCO 10-325 MG PO Q6H PRN AT THIS TIME. WILL CONTINUE TO MONITOR.
[2020-12-08 05:57] LABS: BASOPHILS % (AUTO) 0.4 % (0.0-2.0); EOSINOPHILS % (AUTO) 3.1 % (0.0-6.0); HEMATOCRIT 41 % (39-51); HEMOGLOBIN 13.5 g/dL (13.5-17.5); LYMPHOCYTES # (AUTO) 1.8 /CMM (0.8-4.8); LYMPHOCYTES % (AUTO) 19.9 % (20.0-44.0); MEAN CORPUSCULAR HGB CONC 33 g/dl (31.0-36.0); MEAN CORPUSCULAR VOLUME 91 fL (80-96); MONOCYTES # (AUTO) 0.8 /CMM (0.1-1.30); MONOCYTES % (AUTO) 9.4 % (2.0-12.0); NEUTROPHILS % (AUTO) 67.2 % (43.0-81.0); PLATELET COUNT (AUTO) 265 /CMM (150-450); RED BLOOD CELL COUNT(AUTO) 4.47 MIL/uL (4.5-6.0); WHITE BLOOD COUNT (AUTO) 8.9 K/uL (4.3-11.0)
[2020-12-08 06:05] LABS: CALCIUM, SERUM 9.2 mg/dL (8.5-10.1); POTASSIUM 3.7 mmol/L (3.5-5.1)
[2020-12-08] MEDS: VANCOMYCIN 1 GM in IV D5W 250ml IV SCH ×2 (06:22→18:45)
--- NOTE | 2020-12-08 07:34 | NUR ---
MS RN OPENING NOTES RECEIVED PATIENT IN BED. ALERT AND ORIENTED X4. PATIENT STABLE ON ROOM AIR. NO SIGNS OR SYMPTOMS OF DISTRESS NOTED. BREATHING IS REGULAR AND UNLABORED. IV ACCESS ON LHAND#24 PATENT AND INTACT. ABLE TO MAKE COMMUNICATE NEEDS. SAFETY MEASURES IN PLACE, BED LOCKED IN LOWEST POSITION. SIDE RAILS UP X 2. CALL LIGHT IS WITHIN REACH. WILL CONTINUE TO MONITOR THROUGHOUT SHIFT.
[2020-12-08] MEDS ORDERED: VANC1PLA9 IV (07:41)
[2020-12-08] MEDS ORDERED: CEFT1VIA15 IV (07:41)
[2020-12-08] MEDS: PANTOPRAZOLE 40 MG TABLET.DR PO SCH (07:59)
[2020-12-08 08:00] VITALS: BP_SYST 144; BP_SYST 155; BP_DIAS 79; BP_DIAS 81
[2020-12-08] MEDS: LACTOBACILLUS RHAMNOSUS GG 1 EACH CAP.SPRINK PO SCH ×2 (08:16→17:33)
[2020-12-08] MEDS: ASPIRIN 81 MG TAB.CHEW PO SCH (08:16)
[2020-12-08] MEDS: GABAPENTIN 300 MG CAPSULE PO SCH ×3 (08:16→17:33)
[2020-12-08] MEDS: LISINOPRIL (5MG) 5 MG TABLET PO SCH (08:17)
[2020-12-08] MEDS: MULTIVITAMINS,THERAGRAN 1 UDTAB TABLET PO SCH (08:18)
[2020-12-08] MEDS: METFORMIN 500 MG TABLET PO SCH ×2 (08:18→17:33)
[2020-12-08] MEDS: FERROUS SULFATE (325 MG) 325 MG/TAB TABLET PO SCH (08:18)
[2020-12-08] MEDS: METOPROLOL TARTRATE 25 MG TABLET PO SCH (08:19)
[2020-12-08] MEDS: FUROSEMIDE 40 MG TABLET PO SCH (08:19)
--- NOTE | 2020-12-08 13:00 | NUR ---
MS RN NOTES PATIENT ACCIDENTALLY PULLED OUT IV ACCESS. REFUSE REINSERTION AT THIS TIME. WILL OFFER AGAIN. RISK AND BENEFITS EXPLAINED, VERBALIZED UNDERSTANDING.
--- NOTE | 2020-12-08 13:28 | NUR ---
MS RN NOTES PATIENT REFUSED REINSERTION OF IV LINE
[2020-12-08 16:00] VITALS: BP 118/74
--- NOTE | 2020-12-08 17:40 | NUR ---
MS RN NOTES PER SETTER OFF JAMIN IV ANTIBIOTIC TO BE DEL[facility]ED [facility]
--- NOTE | 2020-12-08 18:45 | NUR ---
MS RN NOTES PATIENT REFUSED NEW IV INSERTION AND VANCOMYCIN IV GIVEN AT THIS TIME, RISKS AND BENEFITS EXPLAINED, VERBALIZED UNDERSTANDING.
--- NOTE | 2020-12-08 19:03 | NUR ---
MS RESEARCH AND DEVELOPMENT CHEMIST NOTES PATIENT DISCHARGE HOME WITH HOME HEALTH WITH STABLE VITAL SIGNS. NO ACUTE DISTRESS NOTED.BREATHING UNLABORED. NO SOB NOTED. DENIED PAIN AT THIS TIME. DISCHARGE INSTRUCTIONS GIVEN TO THE PATIENT INCLUDING FOLLOW UP WITH PRIMARY DOCTOR IN 1 WEEK, DR ADAMS , WOUND [facility] AND DR WOOD ,IV ANTIBIOTIC WITH HOME HEALTH AND IV ANTIBIOTIC TO BE DELIVERED BY IV LEAGUE ARRANGED BY ABRASIVE MIXER HELPER JAMIN, VERBALIZED UNDERSTANDING. BILATERAL LOWER EXTREMITIES WOUND CARE DONE WITH DRESSING CLEAN DRY AND INTACT. ALL BELONGINGS ACCOUNTED FOR. ASSISTED TO THE LOBBY , PATIENT AMBULATORY WITH WALKER WITH STEADY GAIT , PATIENT DISCHARGED IN STABLE CONDITION.
== END 2020-12-08 19:05 | disposition home health service (06) | DRG 264 ==
LOC: ER 16:09 → MED 20:11 → TELE 12-04 01:01 → MED 12-05 11:17
PROVIDERS: ADMIT Internal Medicine; ATTEND Family Medicine
PROC: 0JBP0ZZ Excision of Left Lower Leg Subcutaneous Tissue and Fascia, Open Approach (ICD-10-PCS; principal; 2020-12-06)
PROC: 0JBN0ZZ Excision of Right Lower Leg Subcutaneous Tissue and Fascia, Open Approach (ICD-10-PCS; 2020-12-06)
DX: I87.303 Chronic venous hypertension (idiopathic) without complications of bilateral lower extremity (principal); N17.0 Acute kidney failure with tubular necrosis; L03.115 Cellulitis of right lower limb; D68.59 Other primary thrombophilia; I48.92 Unspecified atrial flutter; L03.116 Cellulitis of left lower limb; I48.91 Unspecified atrial fibrillation; I87.2 Venous insufficiency (chronic) (peripheral); E11.42 Type 2 diabetes mellitus with diabetic polyneuropathy; I25.10 Atherosclerotic heart disease of native coronary artery without angina pectoris; I10 Essential (primary) hypertension; Z20.822 Contact with and (suspected) exposure to COVID-19; I25.2 Old myocardial infarction; K21.9 Gastro-esophageal reflux disease without esophagitis; Z98.890 Other specified postprocedural states; Z79.899 Other long term (current) drug therapy; Z59.0 Homelessness; F31.9 Bipolar disorder, unspecified; E78.5 Hyperlipidemia, unspecified; Z91.018 Allergy to other foods; Z79.82 Long term (current) use of aspirin
CPT/HCPCS: 36415; 71045-TC; 73610-TC; 80048-TC; 80053-TC; 80061-TC; 80202-TC; 83605-TC; 83735-TC; 84100-TC; 84484-TC; 85025-TC; 87040-TC; 87070-TC; 87081-TC; 87186-TC; 93307-TC; 93970-TC; A6253; A6403; C9803; G0378; J0696; J1650; J3370; J3490; J7060

== ENCOUNTER 2020-12-15 13:34 | Emergency (ER) | payer BC, OTHER ==
[~2020-12-15] VITALS: Ht 175.3 cm; Wt 122.5 kg
[~2020-12-15 13:34] MED LIST changes: +ACET-73 PO; +CEFT1VIA15 IV; -CLIN-27 PO; -FURO20TA4 PO; -GENT30CR TP; +IBUP100O19 PO; +NITR0.4T SL; +OMEP40CA13 PO; -SODI473S8 TOP; -Silver Sulfadiazine TP; +VANC1PLA9 IV; +VENL75TA4 PO
[2020-12-15 14:20] VITALS: BP 135/69
--- NOTE | 2020-12-15 14:34 | NUR ---
ENTERPRISE MANAGER REECE CALLED TO FIND OUT WHY MIDLINE/PICCLINE WAS NOT PLACED PRIOR TO DISCHARGE.
--- NOTE | 2020-12-15 15:11 | NUR ---
MIDLINE/PICC LINE NURSE WILL BE HERE AT 1500, DR BEGUM AND PATIENT INFORMED
--- NOTE | 2020-12-15 19:50 | NUR ---
Patient discharged to home in stable condition. Written and verbal after care instructions given. Patient verbalizes understanding of instruction. Pt ambulatory with a steady gait w/ an aide of a front wheeled walker
== END 2020-12-15 19:54 | disposition home or self-care (01) ==
LOC: ER 13:45
DX: Z45.2 Encounter for adjustment and management of vascular access device (principal); I10 Essential (primary) hypertension; I25.2 Old myocardial infarction; K21.9 Gastro-esophageal reflux disease without esophagitis; Z90.89 Acquired absence of other organs; Z91.018 Allergy to other foods; Z60.2 Problems related to living alone; Z79.899 Other long term (current) drug therapy; Z79.82 Long term (current) use of aspirin
CPT/HCPCS: 71045-TC

== ENCOUNTER 2020-12-28 15:38 | Emergency (ER) | payer MEDICARE, OTHER, BC ==
[~2020-12-28] VITALS: Ht 175.3 cm; Wt 120.2 kg
[2020-12-28 15:47] VITALS: BP 131/75
--- NOTE | 2020-12-28 16:34 | NUR ---
Patient discharged to home in stable condition. Written and verbal after care instructions given. Patient verbalizes understanding of instruction.
== END 2020-12-28 16:34 | disposition home or self-care (01) ==
LOC: ER 15:50
DX: Z45.2 Encounter for adjustment and management of vascular access device (principal); E66.8 Other obesity; I48.91 Unspecified atrial fibrillation; I10 Essential (primary) hypertension; I25.2 Old myocardial infarction; K21.9 Gastro-esophageal reflux disease without esophagitis; Z68.39 Body mass index [BMI] 39.0-39.9, adult; Z85.72 Personal history of non-Hodgkin lymphomas; Z85.028 Personal history of other malignant neoplasm of stomach; Z90.89 Acquired absence of other organs; Z98.890 Other specified postprocedural states; Z91.018 Allergy to other foods; Z60.2 Problems related to living alone; Z79.82 Long term (current) use of aspirin; Z79.899 Other long term (current) drug therapy
CPT/HCPCS: 99281; A6403